=== PATIENT | male | born 1970 | race Caucasian/White ===

== ENCOUNTER 2020-07-12 19:10 | Emergency (ER) | payer MEDICAID, SELFPAY ==
--- NOTE | ~2020-07-12 | XR_ITS ---
Examination: XR lumbar spine 2-3V, XR sacrum coccyx min 2V Indication: lower back pain Comparison: 10/22/2017 Technique: 3 views of the lumbar sacral spine with 3 additional views the sacrum/coccyx. Findings: Bones are normal anatomic alignment. I do not appreciate any acute fracture or spondylolisthesis. Vertebral body heights and disc heights are preserved. Minimal degenerative changes the posterior elements the lower lumbar spine. Bowel gas pattern unremarkable. I do not appreciate any acute fracture or spondylolisthesis of the sacrum or coccyx either. XR/XR sacrum coccyx min 2V Impression: No acute bony abnormality.
--- NOTE | ~2020-07-12 | XR_ITS ---
Examination: XR lumbar spine 2-3V, XR sacrum coccyx min 2V Indication: lower back pain Comparison: 10/22/2017 Technique: 3 views of the lumbar sacral spine with 3 additional views the sacrum/coccyx. Findings: Bones are normal anatomic alignment. I do not appreciate any acute fracture or spondylolisthesis. Vertebral body heights and disc heights are preserved. Minimal degenerative changes the posterior elements the lower lumbar spine. Bowel gas pattern unremarkable. I do not appreciate any acute fracture or spondylolisthesis of the sacrum or coccyx either. XR/XR lumbar spine 2-3V Impression: No acute bony abnormality.
[2020-07-12 20:06] VITALS: BP 153/101; PULSE 91; RESP 17; TEMP 36.7; O2SAT 97; BMI 36.5
[2020-07-12] MEDS: oxyCODONE HCl Immed Release 5 MG TABLET PO (21:42)
[2020-07-12] MEDS: Ketorolac Tromethamine 30 MG/ML VIAL IM (21:43)
--- NOTE | 2020-07-12 23:05 | ED.BACK ---
HPI - Back Pain/Injury General Chief Complaint: Back Pain/Injury Stated Complaint: Back Pain Time Seen by Provider: 07/12/20 22:25 Source: patient Mode of arrival: ambulatory Limitations: no limitations History of Present Illness HPI Narrative: Patient presents to the ED for lower back pain radiating down both legs. Patient states history of chronic back issues does worsen the past 2 days. Patient denies any recent trauma to the back head or abdomen. Patient denies fall to the ground. Patient denies any urinary/bowel incontinence. MD elicited complaint: back pain Related Data Previous Rx's Medication Instructions Recorded oxycodone-acetaminophen [Percocet] 1 tab PO TID PRN #9 tab 07/12/20 Allergies Allergy/AdvReac Type Severity Reaction Status Date / Time No Known Allergies Allergy Verified 07/12/20 20:16 [No Known Allergies*] Review of Systems Review of Systems: Yes all other systems are reviewed and are negative Constitutional: Constitutional: Reports as per HPI and Reports no additional constitutional complaints Eyes: Eyes: Reports as per HPI and Reports no additional eye complaints ENT: Reports system reviewed and no additional complaints, except as documented and Reports as per HPI Cardiovascular: Cardiovascular: Reports as per HPI and Reports no additional cardiovascular complaints Respiratory: Respiratory: Reports as per HPI and Reports no additional respiratory complaints Gastrointestinal: Gastrointestinal: Reports as per HPI and Reports no additional gastrointestinal complaints Genitourinary: Genitourinary: Reports no additional male genitourinary complaints and Reports as per HPI Musculoskeletal: Musculoskeletal: Reports no additional musculoskeletal complaints, Reports as per HPI and Reports back pain Neurologic: Reports system reviewed and no additional complaints, except as documented and Reports as per HPI Psychiatric: Psychiatric: Reports no additional psychiatric complaints and Reports as per HPI [facility] Past Medical History Medical History (Updated 07/12/20 @ 23:22 by MARYBETH Bowen) Back pain Depression Diabetes High cholesterol HTN (hypertension) Social History Social History Advance Directives: No Physical Exam Vital Signs: Vital Signs: Last Vital Signs Temp 98.1 F 07/12/20 20:06 Pulse 91 07/12/20 20:06 Resp 17 07/12/20 20:06 BP 153/101 H 07/12/20 20:06 Pulse Ox 97 07/12/20 20:06 Body Mass Index 36.5 Const: General: cooperative, healthy appearing, comfortable, no acute distress, well developed, alert, awake and Physically active Orientation/consciousness: patient oriented x3 HENMT: Head: Yes normal to inspection, Yes No palpable skull fracture present, Yes normocephalic, Yes atraumatic and No abrasion Eyes: General: appearance normal, both eyes and all related structures Neck: Neck: Yes normal visual inspection, Yes full ROM, Yes no lymphadenopathy, Yes no meningeal signs, Yes trachea midline, Yes supple and No tender Chest: Chest palpation & inspection: normal inspection of the chest and normal palpation of entire chest wall Resp: Effort & Inspection: normal respiratory effort and able to speak in complete sentences Auscultation: clear to auscultation bilaterally Cardio: Jugular venous distension: no JVD Heart sounds: S1 normal heart sound present and S2 normal heart sound present GI: Inspection: Yes normal to inspection and No abdominal wall ecchymosis Palpation (GI): Soft to palpation, not firm, nontender, no guarding and not rigid : General: No CVA tenderness and Yes no CVA tenderness Back/Spine/Pelvis: Other: Rectal exam positive for good anus rectal tone strength on rectal exam. Negative for saddle anesthesia. Patient's has sensation in whole saddle. Patient has sensation in the perineum, scrotum, genital area, groin, and pubis. Back: no CVA tenderness, No CVA tenderness and back tenderness (Lumbar spine) Skin: General skin exam: no rashes or lesions noted and elasticity normal Neuro: General: patient oriented x3, gait normal, no meningeal signs and CN's II-XI intact bilaterally Cranial nerves: Yes CN's II-XII intact bilaterally Extrem: General: Yes normal to inspection and Yes full ROM Psych: Appearance: grossly normal, well kempt and not disheveled Course Course Course Narrative: Patient have lumbar spine x-ray. Reevaluation(s) Reevaluation #1: X-ray shows degenerative arthritis. Physical exam does not indicate cauda compression. Patient will be discharged with narcotic. Patient already has motrin at home. MDM - Back Pain/Injury MDM Narrative Medical decision making narrative: Degenerative disc disease Discharge Plan Discharge Clinical Impression: Degenerative disc disease at L5-S1 level Patient Disposition: Home, Self-Care Instructions: Degenerative Disc Disease (ED) Additional Instructions: Acudir al servicio de urgencias inmediatamente por cualquier incontinencia urinaria / intestinal, dolor de espalda yanick, par?lisis de las extremidades inferiores, entumecimiento / hormigueo, dolor abdominal, dolor en el costado, fiebre, escalofr?os, n?useas, v?mitos o cualquier otro s?ntoma preocupante. Lupillo un seguimiento con el PCP. Prescriptions: New oxycodone-acetaminophen [Percocet] 5-325 mg tablet 1 tab PO TID PRN (Reason: pain) Qty: 9 RF: 0 Referrals: Josh Amin MD [Primary Care Provider] - 2 days (Lumbar radiculopathy. Degenerate disc disease. Recommend MRI if no improvement in pain.) Stand Alone Forms: Work/School Release Interventions: ED Discharge Assessment Last Done: 07/12/20 23:53 Discharge Date/Time: 07/13/20 00:00 Print Language: Bengali
== END 2020-07-13 | disposition home or self-care (01) ==
PROVIDERS: Emergency Provider Internal Medicine; PCP Family Medicine
DX: M47.817 Spondylosis without myelopathy or radiculopathy, lumbosacral region (principal); I10 Essential (primary) hypertension; E11.9 Type 2 diabetes mellitus without complications
CPT/HCPCS: 72100; 72220; 96372; 99284; J1885

== ENCOUNTER 2020-07-22 15:22 | Outpatient (REF) | payer MEDICAID, SELFPAY ==
--- NOTE | ~2020-07-22 | MR_ITS ---
EXAMINATION: MR LUMBAR SPINE WITHOUT CONTRAST CLINICAL INFORMATION: Lower back pain. Bilateral leg weakness, numbness, toe numbness or weakness. COMPARISON: Most recent lumbar spine radiographs dated 07/12/2020 TECHNIQUE: MRI of the lumbar spine was obtained using routine sequences without contrast. FINDINGS: VERTEBRAL BODIES AND PARASPINAL STRUCTURES: Normal vertebral body alignment. The lumbar lordosis is maintained. No acute fracture or subluxation. No loss of vertebral body height. Mild loss of intervertebral disc height with disc desiccation at L2-L5. Tiny multilevel anterior endplate osteophytes. No marrow edema to suggest acute osseous injury. The visualized paraspinal soft tissues are unremarkable. CONUS MEDULLARIS AND CAUDA EQUINA: Normal, terminating at the level of L1. SPINAL LEVELS: L1-L2: No significant disc bulge. Bilateral facet arthropathy and thickening of the ligamentum flavum. No central canal or neural foraminal stenosis. L2-L3: Minimal broad-based disc bulge with a shallow posterior central disc protrusion. Bilateral facet arthropathy. No significant central canal or neural foraminal stenosis. L3-L4: No significant disc bulge. Bilateral facet arthropathy and thickening of the ligamentum flavum. No central canal or neural foraminal stenosis. L4-L5: Shallow broad-based disc bulge with bilateral facet arthropathy and thickening of the ligamentum flavum. No significant central canal stenosis. Mild bilateral neural foraminal stenosis. L5-S1: No significant disc bulge. Bilateral facet arthropathy without significant central canal or neural foraminal stenosis. MR/MR lumbar spine wo con IMPRESSION: 1. Minimal broad-based disc bulge at L2-L3 with a shallow posterior central disc protrusion and bilateral facet arthropathy. No significant central canal or neural foraminal stenosis. 2. L4-L5 shallow broad-based disc bulge with bilateral facet arthropathy and thickening of the ligamentum flavum causing mild bilateral neural foraminal stenosis. 3. Additional multilevel bilateral facet arthropathy without significant central canal or neural foraminal stenosis.
== END 2020-07-22 15:23 | disposition home or self-care (01) ==
LOC: HO.MRI 15:22
PROVIDERS: Visit Provider Nurse Practitioner Family
DX: M54.41 Lumbago with sciatica, right side (principal); M54.42 Lumbago with sciatica, left side
CPT/HCPCS: 72148

== ENCOUNTER 2020-08-02 16:43 | Inpatient (IN) | payer OTHER, SELFPAY ==
--- NOTE | 2020-08-02 | ECG_ITS ---
Test Reason : AMS Blood Pressure : / mmHG Vent. Rate : 097 BPM Atrial Rate : 097 BPM P-R Int : 124 ms QRS Dur : 148 ms QT Int : 408 ms P-R-T Axes : 049 001 004 degrees QTc Int : 518 ms Normal sinus rhythm Right bundle branch block Abnormal ECG No previous ECGs available Referred By: Generic ED Physician Electronically Signed By:KONRAD RAMIREZ MD
--- NOTE | ~2020-08-02 | CT_ITS ---
EXAMINATION: CT HEAD WITHOUT CONTRAST CLINICAL INFORMATION: Altered mental status COMPARISON: None. TECHNIQUE: Contiguous axial imaging was performed from the skull base to vertex without intravenous administration of contrast. Coronal and sagittal reformatted images are performed at the CT scanner. [This CT examination was performed using dose optimization techniques as appropriate, variously including the following: *Automated exposure control *Adjustment of mA and/or kV according to patient size (this includes techniques or standardized protocols for targeted exams where dose is matched to indication/reason for exam; i.e. extremities or head) *Use of iterative reconstruction technique] DLP: 739 mGy-cm. FINDINGS: There is no evidence of acute intracranial hemorrhage or territorial infarction. No abnormal mass-effect or midline shift is seen. Matos to white matter differentiation is well preserved. No extra-axial fluid collections are identified. The ventricles are normal in size. There is no abnormal attenuation within the brain parenchyma. There is no osseous abnormality. The mastoid air cells and visualized portions of the paranasal sinuses are well-aerated. CT/CT head/brain wo con IMPRESSION: No acute intracranial pathology.
--- NOTE | ~2020-08-02 | XR_ITS ---
EXAMINATION: XR KNEE, RIGHT CLINICAL INFORMATION: Knee pain COMPARISON: None TECHNIQUE: Four views of the right knee. FINDINGS: Bones and soft tissues are normal. No fracture or joint effusion. Alignment is anatomic. Joint spaces are well maintained. No abnormal soft tissue calcification. There is small superior patellar enthesophyte. No abnormal joint effusions XR/XR knee RT 3V IMPRESSION: No visible acute fracture dislocation. There is mild spurring superior patella.
--- NOTE | 2020-08-02 17:14 | PC.NURSE ---
awaiting production supervisor services to triage
[2020-08-02 17:34] VITALS: BP 164/113; PULSE 95; RESP 18; TEMP 36.6; O2SAT 100; BMI 17.1
[2020-08-02 18:16] LABS: MANUAL DIFF FLAG NO
[2020-08-02 18:16] LABS: Glucose, Whole Blood 131 mg/dL (60-115)
[2020-08-02 18:27] LABS: Glucose Urine UA NEG (NEG); Leukocyte Esterase Urine NEG (NEG); Nitrite Urine NEG (NEG); Specific Gravity - Urine >= 1.030 (1.005-1.025); Urine Blood NEG (NEG); Urine Ketones NEG (NEG); Urine Protein NEG (NEG-TRACE)
[2020-08-02 18:29] LABS: Appearance Urine CLEAR; Color Urine YELLOW
[2020-08-02 18:38] LABS: Anion Gap 13 (12-20); Basophils Absolute Auto 0.1 X10*3/uL (0.0-0.2); Basophils Percent Auto 0.4 % (0-2); Blood Urea Nitrogen 21 mg/dL (9-16); Calcium 9.7 mg/dL (8.4-10.2); Carbon Dioxide 26 mmol/L (22-29); Chloride 105 mmol/L (96-108); Creatinine Clr Calc Pharmacy 46.4; Eosinophils Percent Auto 0.3 % (0-4); Estimated Glomerular Filt Rate 57; Glucose Random 128 mg/dL (60-115); Hematocrit 44.7 % (42-52); Hemoglobin 14.3 g/dl (14.0-18.0); Imm Gran Abs Auto 0.03 X10*3/uL (0.00-0.03); Imm Gran Pct Auto 0.3 % (0.0-0.4); Lymphocytes Absolute Auto 2.6 X10*3/uL (1.2-4.9); Lymphocytes Percent Auto 22.3 % (20-40); Mean Corpuscular Hemoglobin 27.7 pg (27.0-33.0); Mean Corpuscular Volume 86.6 fL (80-98); Mean Platelet Volume 10.2 fL (9.4-12.4); Monocytes Absolute Auto 0.8 X10*3/uL (0.1-1.2); Monocytes Percent Auto 6.9 % (2-11); Neutrophils Absolute Auto 8.1 X10*3/uL (2.0-8.3); Neutrophils Percent Auto 69.8 % (45-73); Platelet Count 299 X10*3/uL (160-400); Potassium 4.3 mmol/L (3.3-5.1); Red Blood Count 5.16 X10*6/uL (4.60-5.80); Red Cell Distribution Width 14.2 % (11.0-16.0); Sodium 140 mmol/L (135-145); White Blood Count 11.6 X10*3/uL (4.8-10.8)
[2020-08-02 18:57] LABS: Amphetamine Screen Urine Not Detected (Not Detect); Barbiturates, Urine Not Detected (Not Detect); Benzodiazepines Screen Urine Not Detected (Not Detect); Cannabinoid Screen Urine Not Detected (Not Detect); Cocaine Screen Urine Not Detected (Not Detect); Opiate Screen Urine Not Detected (Not Detect); Phencyclidine Screen Urine Not Detected (Not Detect)
[2020-08-02 21:48] VITALS: BP 168/109; PULSE 90; RESP 16; TEMP 36; O2SAT 99
[2020-08-02 22:00] VITALS: BP 193/113; PULSE 86; RESP 16; TEMP 36.6; O2SAT 99
--- NOTE | 2020-08-02 22:25 | ED_ITS ---
HPI - General Adult General Chief complaint: General Medical Stated complaint: ams Time Seen by Provider: 08/02/20 22:03 History of Present Illness HPI narrative: 50-year-old male history of diabetes, hypertension, high cholesterol. Patient presented with having 3-4 day history of having altered mental status. Per family patient thinks the cardiacs are infected. He is ambulatory. He did fell 2 days prior. Complaining of pain to the right knee. He is ambulatory today. He is not on blood thinners. No chest pain. No diaphoresis. No change in sleep pattern. Family feels patient very odd. No history of recreational drug use. Related Data Previous Rx's Medication Instructions Recorded oxycodone-acetaminophen [Percocet] 1 tab PO TID PRN #9 tab 07/12/20 Allergies Allergy/AdvReac Type Severity Reaction Status Date / Time No Known Allergies Allergy Verified 08/02/20 17:33 [No Known Allergies*] Review of Systems Review of Systems: No chest pain or shortness breath no nausea no vomiting Yes all other systems are reviewed and are negative [facility] Past Medical History Attestation statement: The following information was validated with the patient. Medical History Back pain Depression Diabetes High cholesterol HTN (hypertension) Hypoglycemia Social History Social History Advance Directives: No Advance Directives Information Provided: Yes Physical Exam Vital Signs: Vital Signs: Last Vital Signs Temp 98.0 F 08/03/20 06:08 Pulse 82 08/03/20 06:08 Resp 16 08/03/20 06:08 BP 167/106 H 08/03/20 06:08 Pulse Ox 98 08/03/20 06:08 Body Mass Index 17.1 Appearance: Alert. Oriented X3. No acute distress. Eyes: Pupils equal, round and reactive to light. ENT: Pharynx normal. Neck: Normal inspection. Neck supple. No lymph nodes noted. No crepitus CVS: Normal heart rate and rhythm. Pulses normal. Normal S1 and S2 Respiratory: No respiratory distress. Breath sounds normal. No Wheezing. No rales Abdomen: Soft and nontender. No rigidity. No distention. good BS x4 Skin: Skin warm and dry. Normal skin color. Normal skin turgor. Extremities: No lower extremity edema. Neurovascular intact to all extremities. No Lacerations. No Rash Neuro: Oriented X 3. No motor deficit. No sensory deficit. Moving all extermities. No slurred speech Medical Decision Making MDM Narrative Medical decision making narrative: well-appearing no acute distress. We will go ahead and get a CT scan of the head to rule out possibility of a bleed. We will get electrolytes. Will monitor carefully. Patient's labs show evidence of some mild dehydration. Otherwise negative. Will have patient get seen by crisis. CT scan of the head was grossly negative for any acute evidence of bleeding. No fracture. Currently in stable condition. Lab Data Result diagrams: 08/02/20 18:05 08/02/20 18:05 Labs: Lab Results 08/02/20 08/02/20 08/02/20 Range/Units 18:03 18:05 18:05 WBC 11.6 H (4.8-10.8) X10*3/uL RBC 5.16 (4.60-5.80) X10*6/uL Hgb 14.3 (14.0-18.0) g/dl Hct 44.7 (42-52) % MCV 86.6 (80-98) fL MCH 27.7 (27.0-33.0) pg MCHC 32.0 (31.0-36.0) g/dl RDW 14.2 (11.0-16.0) % Plt Count 299 (160-400) X10*3/uL MPV 10.2 (9.4-12.4) fL Immature Gran % (Auto) 0.3 (0.0-0.4) % Neut % (Auto) 69.8 (45-73) % Lymph % (Auto) 22.3 (20-40) % [place] % (Auto) 6.9 (2-11) % Eos % (Auto) 0.3 (0-4) % Baso % (Auto) 0.4 (0-2) % Lymph # (Auto) 2.6 (1.2-4.9) X10*3/uL [place] # (Auto) 0.8 (0.1-1.2) X10*3/uL Eos # (Auto) 0.0 (0.0-0.4) X10*3/uL Baso # (Auto) 0.1 (0.0-0.2) X10*3/uL Abs Immat Gran (auto) 0.03 (0.00-0.03) X10*3/uL Absolute Neuts (auto) 8.1 (2.0-8.3) X10*3/uL Absolute Nucleated RBC 0.000 (0.0-0.012) X10*3/uL Nucleated RBC % (auto) 0.0 (0.0-0.2) /100WBC Sodium 140 (135-145) mmol/L Potassium 4.3 (3.3-5.1) mmol/L Chloride 105 (96-108) mmol/L Carbon Dioxide 26 (22-29) mmol/L Anion Gap 13 (12-20) BUN 21 H (9-16) mg/dL Creatinine 1.32 (0.5-1.4) mg/dL Estim Creat Clear Calc 46.4 Estimated GFR 57 POC Glucose 131 H (60-115) mg/dL Random Glucose 128 H (60-115) mg/dL Calcium 9.7 (8.4-10.2) mg/dL Vitamin B12 (200-900) pg/mL TSH 0.46 (0.32-4.0) uIU/mL Urine Color Urine Appearance Urine pH (5.0-8.0) Ur Specific [place] (1.005-1.025) Urine Protein (NEG-TRACE) MG/DL Urine Glucose (UA) (NEG) MG/DL Urine Ketones (NEG) MG/DL Urine Blood (NEG) Urine Nitrite (NEG) Ur Leukocyte Esterase (NEG) Urine Opiates Screen (Not Detect) Ur Barbiturates Screen (Not Detect) Ur Phencyclidine Scrn (Not Detect) Ur Amphetamines Screen (Not Detect) U Benzodiazepines Scrn (Not Detect) Urine Cocaine Screen (Not Detect) U Marijuana (THC) Screen (Not Detect) Ethyl Alcohol mg/dL 08/02/20 08/02/20 08/02/20 Range/Units 18:05 18:05 18:09 WBC (4.8-10.8) X10*3/uL RBC (4.60-5.80) X10*6/uL Hgb (14.0-18.0) g/dl Hct (42-52) % MCV (80-98) fL MCH (27.0-33.0) pg MCHC (31.0-36.0) g/dl RDW (11.0-16.0) % Plt Count (160-400) X10*3/uL MPV (9.4-12.4) fL Immature Gran % (Auto) (0.0-0.4) % Neut % (Auto) (45-73) % Lymph % (Auto) (20-40) % [place] % (Auto) (2-11) % Eos % (Auto) (0-4) % Baso % (Auto) (0-2) % Lymph # (Auto) (1.2-4.9) X10*3/uL [place] # (Auto) (0.1-1.2) X10*3/uL Eos # (Auto) (0.0-0.4) X10*3/uL Baso # (Auto) (0.0-0.2) X10*3/uL Abs Immat Gran (auto) (0.00-0.03) X10*3/uL Absolute Neuts (auto) (2.0-8.3) X10*3/uL Absolute Nucleated RBC (0.0-0.012) X10*3/uL Nucleated RBC % (auto) (0.0-0.2) /100WBC Sodium (135-145) mmol/L Potassium (3.3-5.1) mmol/L Chloride (96-108) mmol/L Carbon Dioxide (22-29) mmol/L Anion Gap (12-20) BUN (9-16) mg/dL Creatinine (0.5-1.4) mg/dL Estim Creat Clear Calc Estimated GFR POC Glucose (60-115) mg/dL Random Glucose (60-115) mg/dL Calcium (8.4-10.2) mg/dL Vitamin B12 343 (200-900) pg/mL TSH (0.32-4.0) uIU/mL Urine Color YELLOW Urine Appearance CLEAR Urine pH 6.0 (5.0-8.0) Ur Specific [place] >= 1.030 H (1.005-1.025) Urine Protein NEG (NEG-TRACE) MG/DL Urine Glucose (UA) NEG (NEG) MG/DL Urine Ketones NEG (NEG) MG/DL Urine Blood NEG (NEG) Urine Nitrite NEG (NEG) Ur Leukocyte Esterase NEG (NEG) Urine Opiates Screen (Not Detect) Ur Barbiturates Screen (Not Detect) Ur Phencyclidine Scrn (Not Detect) Ur Amphetamines Screen (Not Detect) U Benzodiazepines Scrn (Not Detect) Urine Cocaine Screen (Not Detect) U Marijuana (THC) Screen (Not Detect) Ethyl Alcohol < 10 mg/dL 08/02/20 Range/Units 18:30 WBC (4.8-10.8) X10*3/uL RBC (4.60-5.80) X10*6/uL Hgb (14.0-18.0) g/dl Hct (42-52) % MCV (80-98) fL MCH (27.0-33.0) pg MCHC (31.0-36.0) g/dl RDW (11.0-16.0) % Plt Count (160-400) X10*3/uL MPV (9.4-12.4) fL Immature Gran % (Auto) (0.0-0.4) % Neut % (Auto) (45-73) % Lymph % (Auto) (20-40) % [place] % (Auto) (2-11) % Eos % (Auto) (0-4) % Baso % (Auto) (0-2) % Lymph # (Auto) (1.2-4.9) X10*3/uL [place] # (Auto) (0.1-1.2) X10*3/uL Eos # (Auto) (0.0-0.4) X10*3/uL Baso # (Auto) (0.0-0.2) X10*3/uL Abs Immat Gran (auto) (0.00-0.03) X10*3/uL Absolute Neuts (auto) (2.0-8.3) X10*3/uL Absolute Nucleated RBC (0.0-0.012) X10*3/uL Nucleated RBC % (auto) (0.0-0.2) /100WBC Sodium (135-145) mmol/L Potassium (3.3-5.1) mmol/L Chloride (96-108) mmol/L Carbon Dioxide (22-29) mmol/L Anion Gap (12-20) BUN (9-16) mg/dL Creatinine (0.5-1.4) mg/dL Estim Creat Clear Calc Estimated GFR POC Glucose (60-115) mg/dL Random Glucose (60-115) mg/dL Calcium (8.4-10.2) mg/dL Vitamin B12 (200-900) pg/mL TSH (0.32-4.0) uIU/mL Urine Color Urine Appearance Urine pH (5.0-8.0) Ur Specific [place] (1.005-1.025) Urine Protein (NEG-TRACE) MG/DL Urine Glucose (UA) (NEG) MG/DL Urine Ketones (NEG) MG/DL Urine Blood (NEG) Urine Nitrite (NEG) Ur Leukocyte Esterase (NEG) Urine Opiates Screen Not Detected (Not Detect) Ur Barbiturates Screen Not Detected (Not Detect) Ur Phencyclidine Scrn Not Detected (Not Detect) Ur Amphetamines Screen Not Detected (Not Detect) U Benzodiazepines Scrn Not Detected (Not Detect) Urine Cocaine Screen Not Detected (Not Detect) U Marijuana (THC) Screen Not Detected (Not Detect) Ethyl Alcohol mg/dL Discharge Plan Discharge Prescriptions: No Action oxycodone-acetaminophen [Percocet] 5-325 mg tablet 1 tab PO TID PRN (Reason: pain) Qty: 9 RF: 0
[2020-08-02 22:31] LABS: Ethanol < 10 mg/dL
--- NOTE | 2020-08-02 22:31 | PC.NURSE ---
RN AWARE OF PATIENT HIGH BLOOD PRESSURE .
[2020-08-02 22:45] LABS: Thyroid Stimulating Hormone 0.46 uIU/mL (0.32-4.0)
[2020-08-02 22:56] LABS: Vitamin B12 343 pg/mL (200-900)
--- NOTE | 2020-08-03 01:29 | MHC.CARE ---
CARE team consult requested for 50 year old Lao speaking male who was brought to the ED for evaluation of altered mental status, with new onset of paranoia, delusions, speaking nonsensically, and wandering away from the home. Pt was medically cleared of there being any organic causes for the behavioral change. This instructional writer met with pt and his daughter in ED6H with the assistance of a medical stenographer. Pt cried intermittently during the interaction and would make eye contact with this instructional writer, but was otherwise not engaged. Pt spoke at one point, however it was brief and described as not making sense. Pt's daughter reported that he has been confused, paranoid about neighbors, only trusting his daughters, and has been wandering out of the home. There is no reported history of mental illness and no active substance use. Recommendation was made for crisis evaluation. Pt will be referred to N due to pt having Medicaid insurance. If N is unable to assess pt, CARE team will assume responsibility of evaluation in the morning.
--- NOTE | 2020-08-03 01:55 | PC.NURSE ---
Spoke with Milvia from [facility]. paperwork was received
--- NOTE | 2020-08-03 02:30 | PC.NURSE ---
pt moved to ED 8
--- NOTE | 2020-08-03 03:18 | PC.NURSE ---
called [facility] to get ETA for consult, [facility] said there was nobody available until the morning. daughter (Jackie Altamirano) at bedside informed and told that she can go home and return in the morning as she had asked earlier in the night. Jackie provided her phone number ([phone]) to call her if needed or with any updates. Jackie also gave us her sisters number (pts other daughter) Marla Altamirano ([phone]) to call in case Jackie cant be reached.
[2020-08-03 06:08] VITALS: BP 167/106; PULSE 82; RESP 16; TEMP 36.7; O2SAT 98
--- NOTE | 2020-08-03 06:11 | PC.NURSE ---
BP 167/106 aware no new orders at this time
[2020-08-03 10:00] VITALS: BP 139/97; PULSE 88; RESP 17; TEMP 36.8; O2SAT 97
[2020-08-03 12:10] VITALS: BP 126/92; PULSE 81; RESP 17; TEMP 36.7; O2SAT 96
[2020-08-03 12:40] LABS: MANUAL DIFF FLAG NO
[2020-08-03 12:43] LABS: Basophils Percent Auto 0.4 % (0-2); Eosinophils Absolute Auto 0.1 X10*3/uL (0.0-0.4); Hematocrit 45.8 % (42-52); Hemoglobin 14.8 g/dl (14.0-18.0); Imm Gran Abs Auto 0.02 X10*3/uL (0.00-0.03); Imm Gran Pct Auto 0.2 % (0.0-0.4); Lymphocytes Absolute Auto 2.3 X10*3/uL (1.2-4.9); Lymphocytes Percent Auto 25.3 % (20-40); Mean Corpuscular HGB Conc 32.3 g/dl (31.0-36.0); Mean Corpuscular Hemoglobin 27.9 pg (27.0-33.0); Mean Corpuscular Volume 86.3 fL (80-98); Monocytes Absolute Auto 0.6 X10*3/uL (0.1-1.2); Monocytes Percent Auto 6.3 % (2-11); Neutrophils Absolute Auto 6.2 X10*3/uL (2.0-8.3); Neutrophils Percent Auto 66.8 % (45-73); Platelet Count 289 X10*3/uL (160-400); Red Blood Count 5.31 X10*6/uL (4.60-5.80); White Blood Count 9.2 X10*3/uL (4.8-10.8)
[2020-08-03 13:01] LABS: Lactic Acid 0.9 mmol/L (0.5-2.0)
[2020-08-03 13:10] LABS: Alanine Aminotransferase 20 U/L (0-40); Albumin Level 4.4 g/dL (3.5-5.0); Alkaline Phosphatase 63 U/L (39-117); Anion Gap 12 (12-20); Aspartate Amino Transferase 18 U/L (5-37); Bilirubin Direct 0.4 mg/dL (0.0-0.5); Bilirubin Total 1.4 mg/dL (0.0-1.0); Blood Urea Nitrogen 17 mg/dL (9-16); Calcium 9.2 mg/dL (8.4-10.2); Carbon Dioxide 27 mmol/L (22-29); Chloride 103 mmol/L (96-108); Creatinine Clr Calc Pharmacy 62.5; Estimated Glomerular Filt Rate > 60; Glucose Random 103 mg/dL (60-115); Potassium 4.2 mmol/L (3.3-5.1); Sodium 138 mmol/L (135-145)
--- NOTE | 2020-08-03 13:15 | MHC.CARE ---
Met with patient's Bulgarian speaking daughter privately via medical records auditor. She reported that this is the third day her father has been behaving strangely; she stated that he is anxious and afraid and came to the hospital willingly. Yesterday patient was uncharacteristically gone all day and out of contact with family. He went to his daughter's house at 3am, said he was walking all day but confused about where. Would not take food or drink from her, was worried that it was not safe; thought people were following him, controlling his phone, refused to look at the television. Call to patient's son, Masoud ([phone]) in an attempt to gather more background information. He stated that his father is normally happy, busy working (cooks and sells food), is never altered, and has no history of mental health issues, no known family history, no substance use, no weapons in the home. Have not met 1:1 with patient yet, so far he has not been able to engage in meaningful interview. Following medical clearance CARE Team further assess and consult with psychiatry to determine next steps.
[2020-08-03 13:24] LABS: Glucose, Whole Blood 106 mg/dL (60-115)
[2020-08-03 13:56] LABS: CSF Appearance Clear, Colorless; CSF Tube # 1
[2020-08-03 14:08] LABS: Total Protein CSF 60.8 mg/dL (15-45)
[2020-08-03 14:12] LABS: Appearance CSF CLEAR
[2020-08-03 14:13] LABS: CSF Monos 30 %; CSF Tube # 4; Color CSF COLORLESS; Lymphocytes CSF 70 %; Red Blood Cell CSF 0 MM*3; White Blood Cell CSF 4 MM*3
[2020-08-03 14:32] VITALS: BP 125/85; PULSE 88; RESP 17; TEMP 36.6; O2SAT 96
[2020-08-03 15:00] LABS: Glucose CSF 72 mg/dL
--- NOTE | 2020-08-03 16:49 | MHC.CARE ---
CARE Team has assessed patient and spoken to several family members, he will require inpatient psychiatric treatment, written evaluation to follow. Providers updated.
--- NOTE | 2020-08-03 16:54 | PHA.MEDREC ---
Pharmacy Consult ? Medication Reconciliation Pharmacy has completed the medication reconciliation.
[2020-08-03 20:38] VITALS: BP 119/87; PULSE 78; RESP 16; TEMP 37.1; O2SAT 96
[2020-08-04 01:52] VITALS: BMI 36.3
[2020-08-04 01:54] VITALS: BP 129/79; PULSE 71; RESP 18; TEMP 36.2; O2SAT 99
--- NOTE | 2020-08-04 03:51 | PC.ADMIT ---
pt is 50 yo male presenting with psychotic d/o. pt is Chadian speaking only. Interview was done with an aerial photograph interpreter. Pt is calm and cooperative, he is oriented to person, time and place, paranoid, makes good eye contact but not intense. Pt tearful at times. Pt understands his paranoia, delusions and confusion are a profound change and he wants to go back to being the man he once was. pt completed interview, showered and went to bed.
[2020-08-04 06:00] VITALS: BP 115/78; PULSE 59; RESP 18; TEMP 36.6; O2SAT 98
[2020-08-04 08:30] VITALS: BP 117/79; PULSE 70
[2020-08-04] MEDS: allopurinoL 100 MG TABLET PO (08:30)
[2020-08-04] MEDS: Atorvastatin Calcium 40 MG TABLET PO (08:30)
[2020-08-04] MEDS: dilTIAZem HCL CD 120 MG CAP.ER.DEG PO (08:30)
[2020-08-04] MEDS: Losartan Potassium 50 MG TABLET 100 MG PO (08:30)
[2020-08-04 08:46] LABS: Lyme Abs Screen <0.90 index
--- NOTE | 2020-08-04 09:59 | P.HPPS_ITS ---
HPI Chief Complaint: Psychosis Sources of Information: patient interviewed, chart reviewed and crisis/core team assessment reviewed HPI Subjective Notes: Conditional Voluntary Narrative: Mr. Altamirano is a 50 year-old male with hx of MDD and anxiety, apparently no prior hx of psychosis who was [place] [facility] [place] his partner brought him because he has been increasingly more disorganized, paranoid thinking people were after him, that was seeing other men, hearing voices and increasingly more confused. In the ED, his utox was negative. He had extensive medical workup since this is first episode of psychosis including LP which included negative meningitis/encephalitis panel, pending results for VDRL, Herpes. CSF WBC, Lymphocites, all wnl, except for elevated CSF protein (60.8). Head CT unremarkable for acute or chronic findings. Upon further investigation and interview with both pt and his , both report that patient has been using cocaine 4-5 weekly up until 2 weeks ago when disorganization and psychosis started. On the unit, Mr. Altamirano presents as much more organized and much less psychotic. Pt reports two weeks ago he became very confused, paranoid, thinking was talking with several men right in front of him, suspicious about everyone to the point that he decided to leave home and walk aimlessly without shoes. He reports he is glad he got help. He reports sleeping and eating well. He reports feeling very worried and scared about recent episode of psychosis. He adamantly denies suicidal or homicidal ideation. He reports last day he heard voices was day prior to coming to unit. Past Psychiatric History: Inpatient: none prior OP: [facility]- Dr. Ella Muñoz, Therapist [facility] Past Trial: clonazepam, ambien, lexapro Medical Evaluation Reviewed: Yes [facility] Medical History (Updated 08/05/20 @ 10:19 by Leslie Kumar) Back pain Depression Diabetes High cholesterol HTN (hypertension) Hypoglycemia Family History: none Social History: Pt . He has 3 adult children who are close to him. He is currently not working due disability due to anxiety/depression. He has partner of 4 years. 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 Substance History: Cocaine: pt reports using on and off since he was a teen. He reports using about $40 4-5 weekly until 2-3 weeks ago. Alcohol: reports drinking about 6 beers twice a month. Heroin: denies Cocaine: denies Trauma History: denies Diagnostics Vital Signs (24Hr): Vital Signs - 24 hr 08/04/20 20:15 08/05/20 06:00 08/05/20 08:05 Temperature 98.2 F 96.9 F Pulse Rate 76 76 75 Respiratory Rate 20 Blood Pressure 120/72 138/69 120/82 Pulse Oximetry 100 Body Mass Index 36.3 Labs Results: 08/03/20 12:26 08/05/20 08:17 Labs: Laboratory Results - last 48 hr 08/03/20 08/03/20 08/03/20 12:25 12:26 12:27 WBC 9.2 RBC 5.31 Hgb 14.8 Hct 45.8 MCV 86.3 MCH 27.9 MCHC 32.3 RDW 14.0 Plt Count 289 MPV 10.0 Immature Gran % (Auto) 0.2 Neut % (Auto) 66.8 Lymph % (Auto) 25.3 [place] % (Auto) 6.3 Eos % (Auto) 1.0 Baso % (Auto) 0.4 Lymph # (Auto) 2.3 [place] # (Auto) 0.6 Eos # (Auto) 0.1 Baso # (Auto) 0.0 Abs Immat Gran (auto) 0.02 Absolute Neuts (auto) 6.2 Absolute Nucleated RBC 0.000 Nucleated RBC % (auto) 0.0 Sodium 138 Potassium 4.2 Chloride 103 Carbon Dioxide 27 Anion Gap 12 BUN 17 H Creatinine 0.98 Estim Creat Clear Calc 62.5 Estimated GFR > 60 POC Glucose Random Glucose 103 Fasting Glucose Estimat Average Glucose Hemoglobin A1c % Lactic Acid 0.9 Calcium 9.2 Magnesium Total Bilirubin 1.4 H Direct Bilirubin 0.4 AST 18 ALT 20 Alkaline Phosphatase 63 Total Protein 7.0 Albumin 4.4 Vitamin B12 Folate TSH Free T4 Fld Lyme DNA (PCR) CSF Tube Number CSF Volume CSF Appearance CSF Color CSF WBC CSF RBC CSF Lymphocytes CSF Monocytes % CSF Appearance (b) CSF Glucose CSF Total Protein CSF Lyme IgG (Immblot) CSF Lyme IgG Bands Det CSF Lyme IgM (Immblot) CSF Lyme IgM Bands Det CSF Cryptococcus Ag CSF Mening/Enceph PCR Lyme Screen IgG & IgM Lyme Progressive Test Lyme Disease DNA (PCR) 08/03/20 08/03/20 08/03/20 12:27 12:49 13:19 WBC RBC Hgb Hct MCV MCH MCHC RDW Plt Count MPV Immature Gran % (Auto) Neut % (Auto) Lymph % (Auto) [place] % (Auto) Eos % (Auto) Baso % (Auto) Lymph # (Auto) [place] # (Auto) Eos # (Auto) Baso # (Auto) Abs Immat Gran (auto) Absolute Neuts (auto) Absolute Nucleated RBC Nucleated RBC % (auto) Sodium Potassium Chloride Carbon Dioxide Anion Gap BUN Creatinine Estim Creat Clear Calc Estimated GFR POC Glucose 106 Random Glucose Fasting Glucose Estimat Average Glucose Hemoglobin A1c % Lactic Acid Calcium Magnesium Total Bilirubin Direct Bilirubin AST ALT Alkaline Phosphatase Total Protein Albumin Vitamin B12 Folate TSH Free T4 Fld Lyme DNA (PCR) CSF Tube Number 1 CSF Volume CSF Appearance CSF Color CSF WBC CSF RBC CSF Lymphocytes CSF Monocytes % CSF Appearance (b) Clear, Colorless CSF Glucose 72 CSF Total Protein 60.8 H CSF Lyme IgG (Immblot) CSF Lyme IgG Bands Det CSF Lyme IgM (Immblot) CSF Lyme IgM Bands Det CSF Cryptococcus Ag CSF Mening/Enceph PCR Lyme Screen IgG & IgM <0.90 Lyme Progressive Test TNP Lyme Disease DNA (PCR) 08/03/20 08/03/20 08/03/20 13:19 13:19 13:19 WBC RBC Hgb Hct MCV MCH MCHC RDW Plt Count MPV Immature Gran % (Auto) Neut % (Auto) Lymph % (Auto) [place] % (Auto) Eos % (Auto) Baso % (Auto) Lymph # (Auto) [place] # (Auto) Eos # (Auto) Baso # (Auto) Abs Immat Gran (auto) Absolute Neuts (auto) Absolute Nucleated RBC Nucleated RBC % (auto) Sodium Potassium Chloride Carbon Dioxide Anion Gap BUN Creatinine Estim Creat Clear Calc Estimated GFR POC Glucose Random Glucose Fasting Glucose Estimat Average Glucose Hemoglobin A1c % Lactic Acid Calcium Magnesium Total Bilirubin Direct Bilirubin AST ALT Alkaline Phosphatase Total Protein Albumin Vitamin B12 Folate TSH Free T4 Fld Lyme DNA (PCR) CSF Tube Number 4 CSF Volume 2.0 CSF Appearance CLEAR CSF Color COLORLESS CSF WBC 4 CSF RBC 0 CSF Lymphocytes 70 CSF Monocytes % 30 CSF Appearance (b) CSF Glucose CSF Total Protein CSF Lyme IgG (Immblot) CSF Lyme IgG Bands Det CSF Lyme IgM (Immblot) CSF Lyme IgM Bands Det CSF Cryptococcus Ag SEE NOTE CSF Mening/Enceph PCR SEE NOTE Lyme Screen IgG & IgM Lyme Progressive Test Lyme Disease DNA (PCR) 08/03/20 08/03/20 08/05/20 13:19 13:19 08:17 WBC RBC Hgb Hct MCV MCH MCHC RDW Plt Count MPV Immature Gran % (Auto) Neut % (Auto) Lymph % (Auto) [place] % (Auto) Eos % (Auto) Baso % (Auto) Lymph # (Auto) [place] # (Auto) Eos # (Auto) Baso # (Auto) Abs Immat Gran (auto) Absolute Neuts (auto) Absolute Nucleated RBC Nucleated RBC % (auto) Sodium 140 Potassium 4.6 Chloride 105 Carbon Dioxide 28 Anion Gap 12 BUN 21 H Creatinine 1.16 Estim Creat Clear Calc 90.0 Estimated GFR > 60 POC Glucose Random Glucose Fasting Glucose 99 Estimat Average Glucose Hemoglobin A1c % Lactic Acid Calcium 9.3 Magnesium 2.4 Total Bilirubin 1.0 Direct Bilirubin 0.3 AST 17 ALT 22 Alkaline Phosphatase 68 Total Protein 7.1 Albumin 4.4 Vitamin B12 Folate TSH 0.79 Free T4 0.95 Fld Lyme DNA (PCR) CSF Tube Number CSF Volume CSF Appearance CSF Color CSF WBC CSF RBC CSF Lymphocytes CSF Monocytes % CSF Appearance (b) CSF Glucose CSF Total Protein CSF Lyme IgG (Immblot) Cancelled CSF Lyme IgG Bands Det Cancelled CSF Lyme IgM (Immblot) Cancelled CSF Lyme IgM Bands Det Cancelled CSF Cryptococcus Ag CSF Mening/Enceph PCR Lyme Screen IgG & IgM Lyme Progressive Test Lyme Disease DNA (PCR) NOT DETECTED 08/05/20 08/05/20 08:17 08:17 WBC RBC Hgb Hct MCV MCH MCHC RDW Plt Count MPV Immature Gran % (Auto) Neut % (Auto) Lymph % (Auto) [place] % (Auto) Eos % (Auto) Baso % (Auto) Lymph # (Auto) [place] # (Auto) Eos # (Auto) Baso # (Auto) Abs Immat Gran (auto) Absolute Neuts (auto) Absolute Nucleated RBC Nucleated RBC % (auto) Sodium Potassium Chloride Carbon Dioxide Anion Gap BUN Creatinine Estim Creat Clear Calc Estimated GFR POC Glucose Random Glucose Fasting Glucose Estimat Average Glucose 111 Hemoglobin A1c % 5.5 Lactic Acid Calcium Magnesium Total Bilirubin Direct Bilirubin AST ALT Alkaline Phosphatase Total Protein Albumin Vitamin B12 318 Folate 12.3 TSH Free T4 Fld Lyme DNA (PCR) CSF Tube Number CSF Volume CSF Appearance CSF Color CSF WBC CSF RBC CSF Lymphocytes CSF Monocytes % CSF Appearance (b) CSF Glucose CSF Total Protein CSF Lyme IgG (Immblot) CSF Lyme IgG Bands Det CSF Lyme IgM (Immblot) CSF Lyme IgM Bands Det CSF Cryptococcus Ag CSF Mening/Enceph PCR Lyme Screen IgG & IgM Lyme Progressive Test Lyme Disease DNA (PCR) Imaging Radiology Impressions: ITS Impressions Head CT 08/02/20 22:03 IMPRESSION: No acute intracranial pathology. Knee X-Ray 08/02/20 22:27 IMPRESSION: No visible acute fracture dislocation. There is mild spurring superior patella. Meds/Allergies Meds Home Medications Acetaminophen (Acetaminophen 325 Mg Tablet) 650 mg PO Q6H PRN PRN Reason: Headache/Pain Mild Scale (1-3) Last Admin: 08/04/20 12:01 Dose: 650 mg Documented by: Al Hydroxide/Mg Hydroxide (Magnesium Hydrox/Alum Hydrox 30 Ml Oral.Susp) 30 ml PO Q6H PRN PRN Reason: Heartburn/Nausea Albuterol Sulfate (Albuterol Sulfate 90 Mcg 8 Gm Inhaler) 2 puff INHALE Q4H PRN PRN Reason: wheezing Allopurinol (Allopurinol 100 Mg Tablet) 100 mg PO DAILY [facility] Last Admin: 08/05/20 08:05 Dose: 100 mg Documented by: Atorvastatin Calcium (Atorvastatin Calcium 40 Mg Tablet) 40 mg PO DAILY [facility] Last Admin: 08/05/20 08:05 Dose: 40 mg Documented by: Clonazepam (Clonazepam 0.5 Mg Tablet) 0.5 mg PO DAILY PRN PRN Reason: anxiety attack Diltiazem HCl (Diltiazem Hcl Cd 120 Mg Cap.Er.Deg) 120 mg PO DAILY [facility]; Protocol Last Admin: 08/05/20 08:05 Dose: 120 mg Documented by: Escitalopram Oxalate (Escitalopram Oxalate 10 Mg Tablet) 10 mg PO BEDTIME [place] Last Admin: 08/04/20 22:22 Dose: 10 mg Documented by: Famotidine (Famotidine 20 Mg Tablet) 40 mg PO BID PRN PRN Reason: heartburn Hydroxyzine HCl (Hydroxyzine Hcl 25 Mg Tablet) 25 mg PO BEDTIME PRN PRN Reason: Anxiety Hydroxyzine HCl (Hydroxyzine Hcl 25 Mg Tablet) 25 - 50 mg PO TID PRN PRN Reason: anxiety Losartan Potassium (Losartan Potassium 50 Mg Tablet) 100 mg PO DAILY [facility]; Protocol Last Admin: 08/05/20 08:05 Dose: 100 mg Documented by: Magnesium Hydroxide (Milk Of Magnesia 30 Ml Oral.Susp) 30 ml PO DAILY PRN PRN Reason: Constipation Pharmacy Consult (Consult Rx Perform Med Rec) 1 each MISCELLANE ONCE PRN PRN Reason: Consult order Pharmacy Consult (Consult Rx Perform Med Rec) 1 each MISCELLANE ONCE PRN PRN Reason: Consult order Trazodone HCl (Trazodone Hcl 50 Mg Tablet) 50 mg PO BEDTIME PRN PRN Reason: Insomnia Last Admin: 08/04/20 22:21 Dose: 50 mg Documented by: Allergies Allergies Allergy/AdvReac Type Severity Reaction Status Date / Time No Known Allergies Allergy Verified 08/02/20 17:33 [No Known Allergies*] Mental Status Exam Mental Status Exam Narrative: Appearance: casually groomed, fair hygiene, in NAD Behavior: calm, cooperative Psychomotor: no agitation or retardation noted Speech: clear, normal rate/rhythm/volume, spontaneous TP: tangential at times but no loose associations TC: some residual paranoia towards , but much more clear and coherent, future oriented Mood: much better Affect:brighter, non labile SI:none HI:none AH/VH:less AH Delusions:residual paranoia towards , but minimal Insight/judgment:fair x 2. does minimize substance use Memory/cog: alert, oriented x 3. grossly intact to conversational testing. Assessment & Plan Assessment & Plan (1) Substance-induced psychotic disorder with delusions: Status: Acute Code(s): F19.950 - Other psychoactive substance use, unspecified with psychoactive substance-induced psychotic disorder with delusions Assessment and Plan: Mr. Altamirano is a 50 year-old male with hx of MDD, no prior hx of psychosis who was [place] [facility] [place] due to 2 week hx of psychosis and paranoia and disorganized behavior. Extensive medical work up completed in ED, including head CT, LP (meningitis/encephalitis) no significant finding to account for new onset psychosis. In the ED, his utox was negative but upon interview with pt and his , both admit using cocaine regularly until two months ago. On the unit, pt has significantly clear in terms of psychosis and presents as much more organized. At this point suspect psychosis is cocaine induced. Pt does minimize substance use and its effect on his mood and ability to function. We discussed risks, benefits and alternative treatment options. PLAN: 1. Start risperidone 1mg po BID 2. Obtain collateral information 3. 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
[2020-08-04] MEDS: Acetaminophen 325 MG TABLET 650 MG PO (12:01)
[2020-08-04 16:56] LABS: Lyme (B. burgdorferi) PCR NOT DETECTED (NOT DETECTED)
[2020-08-04 20:15] VITALS: BP 120/72; PULSE 76; TEMP 36.8
[2020-08-04] MEDS: traZODone HCL 50 MG TABLET PO (22:21)
[2020-08-04] MEDS: Escitalopram Oxalate 10 MG TABLET PO (22:22)
[2020-08-05 06:00] VITALS: BP 138/69; PULSE 76; RESP 20; TEMP 36.1; O2SAT 100
[2020-08-05 07:00] VITALS: BMI 36.3
[2020-08-05 08:05] VITALS: BP 120/82; PULSE 75
[2020-08-05] MEDS: allopurinoL 100 MG TABLET PO (08:05)
[2020-08-05] MEDS: Losartan Potassium 50 MG TABLET 100 MG PO (08:05)
[2020-08-05] MEDS: Atorvastatin Calcium 40 MG TABLET PO (08:05)
[2020-08-05] MEDS: dilTIAZem HCL CD 120 MG CAP.ER.DEG PO (08:05)
[2020-08-05 08:54] LABS: Alanine Aminotransferase 22 U/L (0-40); Albumin Level 4.4 g/dL (3.5-5.0); Alkaline Phosphatase 68 U/L (39-117); Anion Gap 12 (12-20); Aspartate Amino Transferase 17 U/L (5-37); Bilirubin Direct 0.3 mg/dL (0.0-0.5); Blood Urea Nitrogen 21 mg/dL (9-16); Calcium 9.3 mg/dL (8.4-10.2); Carbon Dioxide 28 mmol/L (22-29); Chloride 105 mmol/L (96-108); Estimated Glomerular Filt Rate > 60; Glucose Fasting 99 mg/dL (60-99); Magnesium 2.4 mg/dL (1.6-2.6); Potassium 4.6 mmol/L (3.3-5.1); Sodium 140 mmol/L (135-145); Total Protein 7.1 g/dL (6.5-8.0)
[2020-08-05 09:06] LABS: Estimated Average Glucose 111 mg/dL; Hemoglobin A1c % 5.5 %
[2020-08-05 09:09] LABS: Free T4 (Free Thyroxine) 0.95 ng/dL (0.71-1.85); Thyroid Stimulating Hormone 0.79 uIU/mL (0.32-4.0)
[2020-08-05 09:44] LABS: Folate 12.3 ng/mL (> or = 4.0); Vitamin B12 318 pg/mL (200-900)
[2020-08-05] MEDS: Famotidine 20 MG TABLET 40 MG PO (14:21)
--- NOTE | 2020-08-05 15:49 | HO.PSYCHPN ---
Subjective Subjective Date of Service: 08/05/20 Reason For Visit: Psychosis Subjective Notes: Conditional Voluntary Interim History: Pt continues to present with paranoia towards GF thinking that multiple people were going to her apartment and continue to do so. Some remarks related to him being intercepted. Pt reports sleeping and eating well. he denies SI/HI. he reports voices have decrease. Collateral from daughter who visited pt yesterday- thinks pt still paranoid towards GF, not fully back to baseline. No behavioral concerns. Medication Compliance: Yes Side effects from medications: No Review of Systems Review of Systems No chest pain or shortness breath no nausea no vomiting Yes all other systems are reviewed and are negative Cardiovascular: Denies chest pain, Denies rapid heart rate, Denies lightheadedness and Denies dyspnea Respiratory: Denies cough and Denies dyspnea Gastrointestinal: Denies constipation and Denies diarrhea Mental Status Exam Mental Status Exam Narrative: Appearance: casually groomed, fair hygiene, in NAD Behavior: calm, cooperative Psychomotor: no agitation or retardation noted Speech: clear, normal rate/rhythm/volume, spontaneous TP: tangential at times but no loose associations TC: some residual paranoia towards , but much more clear and coherent, future oriented Mood: much better Affect:brighter, non labile SI:none HI:none AH/VH:less AH Delusions:residual paranoia towards , but minimal Insight/judgment:fair x 2. does minimize substance use Memory/cog: alert, oriented x 3. grossly intact to conversational testing. Diagnostics Vital Signs (24Hr): Vital Signs - 24 hr 08/04/20 20:15 08/05/20 06:00 08/05/20 08:05 Temperature 98.2 F 96.9 F Pulse Rate 76 76 75 Respiratory Rate 20 Blood Pressure 120/72 138/69 120/82 Pulse Oximetry 100 Body Mass Index 36.3 Labs Results: 08/03/20 12:26 08/05/20 08:17 Labs: Laboratory Results - last 48 hr 08/03/20 08/03/20 08/03/20 12:27 13:19 13:19 Sodium Potassium Chloride Carbon Dioxide Anion Gap BUN Creatinine Estim Creat Clear Calc Estimated GFR Fasting Glucose Estimat Average Glucose Hemoglobin A1c % Calcium Magnesium Total Bilirubin Direct Bilirubin AST ALT Alkaline Phosphatase Total Protein Albumin Vitamin B12 Folate TSH Free T4 Fld Lyme DNA (PCR) CSF Cryptococcus Ag SEE NOTE CSF Mening/Enceph PCR SEE NOTE Lyme Screen IgG & IgM <0.90 Lyme Progressive Test TNP Lyme Disease DNA (PCR) 08/03/20 08/05/20 08/05/20 13:19 08:17 08:17 Sodium 140 Potassium 4.6 Chloride 105 Carbon Dioxide 28 Anion Gap 12 BUN 21 H Creatinine 1.16 Estim Creat Clear Calc 90.0 Estimated GFR > 60 Fasting Glucose 99 Estimat Average Glucose 111 Hemoglobin A1c % 5.5 Calcium 9.3 Magnesium 2.4 Total Bilirubin 1.0 Direct Bilirubin 0.3 AST 17 ALT 22 Alkaline Phosphatase 68 Total Protein 7.1 Albumin 4.4 Vitamin B12 Folate TSH 0.79 Free T4 0.95 Fld Lyme DNA (PCR) CSF Cryptococcus Ag CSF Mening/Enceph PCR Lyme Screen IgG & IgM Lyme Progressive Test Lyme Disease DNA (PCR) NOT DETECTED 08/05/20 08:17 Sodium Potassium Chloride Carbon Dioxide Anion Gap BUN Creatinine Estim Creat Clear Calc Estimated GFR Fasting Glucose Estimat Average Glucose Hemoglobin A1c % Calcium Magnesium Total Bilirubin Direct Bilirubin AST ALT Alkaline Phosphatase Total Protein Albumin Vitamin B12 318 Folate 12.3 TSH Free T4 Fld Lyme DNA (PCR) CSF Cryptococcus Ag CSF Mening/Enceph PCR Lyme Screen IgG & IgM Lyme Progressive Test Lyme Disease DNA (PCR) Imaging Radiology Impressions: ITS Impressions Head CT 08/02/20 22:03 IMPRESSION: No acute intracranial pathology. Knee X-Ray 08/02/20 22:27 IMPRESSION: No visible acute fracture dislocation. There is mild spurring superior patella. Medications Medications Current Medications Generic Name Dose Route Start Last Admin Trade Name Freq PRN Reason Stop Dose Admin Acetaminophen 650 mg 08/04/20 00:57 08/04/20 12:01 Acetaminophen 325 Mg Tablet PO 650 mg Q6H PRN Administration Headache/Pain Mild Scale (1-3) Al Hydroxide/Mg Hydroxide 30 ml 08/04/20 01:20 Magnesium Hydrox/Alum Hydrox 30 Ml Oral.Susp PO Q6H PRN Heartburn/Nausea Albuterol Sulfate 2 puff 08/04/20 01:51 Albuterol Sulfate 90 Mcg 8 Gm Inhaler INHALE Q4H PRN wheezing Allopurinol 100 mg 08/04/20 09:00 08/05/20 08:05 Allopurinol 100 Mg Tablet PO 100 mg DAILY [place] Administration Atorvastatin Calcium 40 mg 08/04/20 09:00 08/05/20 08:05 Atorvastatin Calcium 40 Mg Tablet PO 40 mg DAILY [place] Administration Clonazepam 0.5 mg 08/04/20 01:51 Clonazepam 0.5 Mg Tablet PO DAILY PRN anxiety attack Diltiazem HCl 120 mg 08/04/20 09:00 08/05/20 08:05 Diltiazem Hcl Cd 120 Mg Cap.Er.Deg PO 120 mg DAILY [place] Administration Protocol Escitalopram Oxalate 10 mg 08/04/20 21:00 08/04/20 22:22 Escitalopram Oxalate 10 Mg Tablet PO 10 mg BEDTIME [place] Administration Famotidine 40 mg 08/04/20 01:51 08/05/20 14:21 Famotidine 20 Mg Tablet PO 40 mg BID PRN Administration heartburn Hydroxyzine HCl 25 mg 08/04/20 00:57 Hydroxyzine Hcl 25 Mg Tablet PO BEDTIME PRN Anxiety Hydroxyzine HCl 25 - 50 mg 08/04/20 01:51 Hydroxyzine Hcl 25 Mg Tablet PO TID PRN anxiety Losartan Potassium 100 mg 08/04/20 09:00 08/05/20 08:05 Losartan Potassium 50 Mg Tablet PO 100 mg DAILY [place] Administration Protocol Magnesium Hydroxide 30 ml 08/04/20 01:20 Milk Of Magnesia 30 Ml Oral.Susp PO DAILY PRN Constipation Pharmacy Consult 1 each 08/03/20 16:45 Consult Rx Perform Med Rec MISCELLANE ONCE PRN Consult order Pharmacy Consult 1 each 08/03/20 16:51 Consult Rx Perform Med Rec MISCELLANE ONCE PRN Consult order Risperidone 1 mg 08/05/20 21:00 Risperidone 1 Mg Tablet PO BID [place] Trazodone HCl 50 mg 08/04/20 00:57 08/04/20 22:21 Trazodone Hcl 50 Mg Tablet PO 50 mg BEDTIME PRN Administration Insomnia Allergies Allergies Allergy/AdvReac Type Severity Reaction Status Date / Time No Known Allergies Allergy Verified 08/02/20 17:33 [No Known Allergies*] Assessment & Plan Assessment & Plan (1) Substance-induced psychotic disorder with delusions: Status: Acute Code(s): F19.950 - Other psychoactive substance use, unspecified with psychoactive substance-induced psychotic disorder with delusions Assessment and Plan: Mr. Altamirano is a 50 year-old male with hx of MDD, no prior hx of psychosis who was brought to [facility] due to 2 week hx of psychosis and paranoia and disorganized behavior. Extensive medical work up completed in ED, including head CT, LP (meningitis/encephalitis) no significant finding to account for new onset psychosis. In the ED, his utox was negative but upon interview with pt and his , both admit using cocaine regularly until two months ago. On the unit, pt has significantly clear in terms of psychosis and presents as much more organized. At this point suspect psychosis is cocaine induced. Pt does minimize substance use and its effect on his mood and ability to function. We discussed risks, benefits and alternative treatment options. PLAN: 1. continue risperidone 1mg po BID 2. Obtain collateral information 3. 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
[2020-08-05 17:41] LABS: VDRL Qualitative CSF Nonreactive (Nonreactive)
[2020-08-05 18:07] LABS: HSV 1 DNA, CSF Not Detected (Not Detected); HSV 2 DNA, CSF Not Detected (Not Detected); Specimen Source CSF
[2020-08-05 19:35] VITALS: BP 111/59; PULSE 65; TEMP 36.5
[2020-08-05] MEDS: Acetaminophen 325 MG TABLET 650 MG PO (21:27)
[2020-08-05] MEDS: Escitalopram Oxalate 10 MG TABLET PO (21:28)
[2020-08-05] MEDS: traZODone HCL 50 MG TABLET PO (21:28)
[2020-08-05] MEDS: risperiDONE 1 MG TABLET PO (21:28)
[2020-08-06 05:01] LABS: Babesia IgG <1:64 titer (<1:64); Babesia IgM <1:20 titer (<1:20)
[2020-08-06 06:00] VITALS: BP 119/74; PULSE 83; TEMP 36.2
[2020-08-06 08:15] VITALS: BP 115/76; PULSE 72
[2020-08-06] MEDS: Atorvastatin Calcium 40 MG TABLET PO (08:15)
[2020-08-06] MEDS: Losartan Potassium 50 MG TABLET 100 MG PO (08:15)
[2020-08-06] MEDS: risperiDONE 1 MG TABLET PO ×2 (08:15→20:35)
[2020-08-06] MEDS: allopurinoL 100 MG TABLET PO (08:15)
[2020-08-06] MEDS: dilTIAZem HCL CD 120 MG CAP.ER.DEG PO (08:15)
[2020-08-06 09:35] LABS: Cryptococcal Ag Source CSF
--- NOTE | 2020-08-06 14:49 | HO.PSYCHPN ---
Subjective Subjective Date of Service: 08/06/20 Reason For Visit: Psychosis Interim History: Met with patient who reports that he is doing good. He denies any depression or SI or AVH. Feels that medications are working well however the a.m. Risperdal dose is making him tired. Patient agrees to switch dosing to have full dose at bedtime. Otherwise he has no complaints and no other requests. Medication Compliance: Yes Side effects from medications: Yes (sedation ) Attending Groups: Yes Mental Status Exam Mental Status Exam Narrative: Appearance: casually groomed, fair hygiene, Behavior: calm, cooperative Psychomotor: no agitation or retardation noted Speech: clear, normal rate/rhythm/volume, spontaneous TP:logical, goal oriented TC: on treatment Mood: good Affect:brighter, non labile SI:none HI:none AH/VH:less AH Delusions:none expressed; l Insight/judgment:fair x 2. does minimize substance use Memory/cog: alert, oriented x 3. grossly intact to conversational testing. Diagnostics Vital Signs (24Hr): Vital Signs - 24 hr 08/05/20 19:35 08/06/20 06:00 08/06/20 08:15 Temperature 97.7 F 97.2 F Pulse Rate 65 83 72 Blood Pressure 111/59 L 119/74 115/76 Body Mass Index 36.3 Labs Results: 08/03/20 12:26 08/05/20 08:17 Labs: Laboratory Results - last 48 hr 08/03/20 08/03/20 08/03/20 12:27 13:19 13:19 Sodium Potassium Chloride Carbon Dioxide Anion Gap BUN Creatinine Estim Creat Clear Calc Estimated GFR Fasting Glucose Estimat Average Glucose Hemoglobin A1c % Calcium Magnesium Total Bilirubin Direct Bilirubin AST ALT Alkaline Phosphatase Total Protein Albumin Vitamin B12 Folate TSH Free T4 Fld Lyme DNA (PCR) CSF VDRL Nonreactive CSF Herpes I DNA (PCR) CSF Herpes II DNA (PCR) Babesia microti IgG Ab <1:64 Babesia microti IgM Ab <1:20 Babesia Interpretation SEE NOTE Lyme Disease DNA (PCR) Cryptococcal Ag Note CSF Body Source 08/03/20 08/03/20 08/05/20 13:19 13:19 08:17 Sodium 140 Potassium 4.6 Chloride 105 Carbon Dioxide 28 Anion Gap 12 BUN 21 H Creatinine 1.16 Estim Creat Clear Calc 90.0 Estimated GFR > 60 Fasting Glucose 99 Estimat Average Glucose Hemoglobin A1c % Calcium 9.3 Magnesium 2.4 Total Bilirubin 1.0 Direct Bilirubin 0.3 AST 17 ALT 22 Alkaline Phosphatase 68 Total Protein 7.1 Albumin 4.4 Vitamin B12 Folate TSH 0.79 Free T4 0.95 Fld Lyme DNA (PCR) CSF VDRL CSF Herpes I DNA (PCR) Not Detected CSF Herpes II DNA (PCR) Not Detected Babesia microti IgG Ab Babesia microti IgM Ab Babesia Interpretation Lyme Disease DNA (PCR) NOT DETECTED Cryptococcal Ag Note Body Source CSF 08/05/20 08/05/20 08:17 08:17 Sodium Potassium Chloride Carbon Dioxide Anion Gap BUN Creatinine Estim Creat Clear Calc Estimated GFR Fasting Glucose Estimat Average Glucose 111 Hemoglobin A1c % 5.5 Calcium Magnesium Total Bilirubin Direct Bilirubin AST ALT Alkaline Phosphatase Total Protein Albumin Vitamin B12 318 Folate 12.3 TSH Free T4 Fld Lyme DNA (PCR) CSF VDRL CSF Herpes I DNA (PCR) CSF Herpes II DNA (PCR) Babesia microti IgG Ab Babesia microti IgM Ab Babesia Interpretation Lyme Disease DNA (PCR) Cryptococcal Ag Note Body Source Imaging Radiology Impressions: ITS Impressions Head CT 08/02/20 22:03 IMPRESSION: No acute intracranial pathology. Knee X-Ray 08/02/20 22:27 IMPRESSION: No visible acute fracture dislocation. There is mild spurring superior patella. Medications Medications Current Medications Generic Name Dose Route Start Last Admin Trade Name Freq PRN Reason Stop Dose Admin Acetaminophen 650 mg 08/04/20 00:57 08/05/20 21:27 Acetaminophen 325 Mg Tablet PO 650 mg Q6H PRN Administration Headache/Pain Mild Scale (1-3) Al Hydroxide/Mg Hydroxide 30 ml 08/04/20 01:20 Magnesium Hydrox/Alum Hydrox 30 Ml Oral.Susp PO Q6H PRN Heartburn/Nausea Albuterol Sulfate 2 puff 08/04/20 01:51 Albuterol Sulfate 90 Mcg 8 Gm Inhaler INHALE Q4H PRN wheezing Allopurinol 100 mg 08/04/20 09:00 08/06/20 08:15 Allopurinol 100 Mg Tablet PO 100 mg DAILY [place] Administration Atorvastatin Calcium 40 mg 08/04/20 09:00 08/06/20 08:15 Atorvastatin Calcium 40 Mg Tablet PO 40 mg DAILY [place] Administration Clonazepam 0.5 mg 08/04/20 01:51 Clonazepam 0.5 Mg Tablet PO DAILY PRN anxiety attack Diltiazem HCl 120 mg 08/04/20 09:00 08/06/20 08:15 Diltiazem Hcl Cd 120 Mg Cap.Er.Deg PO 120 mg DAILY [place] Administration Protocol Escitalopram Oxalate 10 mg 08/04/20 21:00 08/05/20 21:28 Escitalopram Oxalate 10 Mg Tablet PO 10 mg BEDTIME [place] Administration Famotidine 40 mg 08/04/20 01:51 08/05/20 14:21 Famotidine 20 Mg Tablet PO 40 mg BID PRN Administration heartburn Hydroxyzine HCl 25 mg 08/04/20 00:57 Hydroxyzine Hcl 25 Mg Tablet PO BEDTIME PRN Anxiety Hydroxyzine HCl 25 - 50 mg 08/04/20 01:51 Hydroxyzine Hcl 25 Mg Tablet PO TID PRN anxiety Losartan Potassium 100 mg 08/04/20 09:00 08/06/20 08:15 Losartan Potassium 50 Mg Tablet PO 100 mg DAILY [place] Administration Protocol Magnesium Hydroxide 30 ml 08/04/20 01:20 Milk Of Magnesia 30 Ml Oral.Susp PO DAILY PRN Constipation Pharmacy Consult 1 each 08/03/20 16:45 Consult Rx Perform Med Rec MISCELLANE ONCE PRN Consult order Pharmacy Consult 1 each 08/03/20 16:51 Consult Rx Perform Med Rec MISCELLANE ONCE PRN Consult order Risperidone 1 mg 08/05/20 21:00 08/06/20 08:15 Risperidone 1 Mg Tablet PO 1 mg BID [place] Administration Trazodone HCl 50 mg 08/04/20 00:57 08/05/20 21:28 Trazodone Hcl 50 Mg Tablet PO 50 mg BEDTIME PRN Administration Insomnia Allergies Allergies Allergy/AdvReac Type Severity Reaction Status Date / Time No Known Allergies Allergy Verified 08/02/20 17:33 [No Known Allergies*] Assessment & Plan Assessment & Plan (1) Substance-induced psychotic disorder with delusions: Status: Acute Code(s): F19.950 - Other psychoactive substance use, unspecified with psychoactive substance-induced psychotic disorder with delusions Assessment and Plan: Mr. Altamirano is a 50 year-old male with hx of MDD, no prior hx of psychosis who was brought to [facility] due to 2 week hx of psychosis and paranoia and disorganized behavior. Extensive medical work up completed in ED, including head CT, LP (meningitis/encephalitis) no significant finding to account for new onset psychosis. In the ED, his utox was negative but upon interview with pt and his , both admit using cocaine regularly until two months ago. On the unit, pt has significantly clear in terms of psychosis and presents as much more organized. At this point suspect psychosis is cocaine induced. Pt does minimize substance use and its effect on his mood and ability to function. We discussed risks, benefits and alternative treatment options. patient reports mood is good, no SI, depression or AVH PLAN: 1. Changed to Risperdal 2 mg at bedtime (instead of 1mg BID; patient complains of daytime sedation from morning dose) 2. Obtain collateral information 3. 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
[2020-08-06] MEDS: Escitalopram Oxalate 10 MG TABLET PO (20:35)
[2020-08-06] MEDS: Famotidine 20 MG TABLET 40 MG PO (20:36)
[2020-08-06 20:37] VITALS: BP 122/77; PULSE 98; RESP 18; TEMP 37; O2SAT 98
[2020-08-06] MEDS: traZODone HCL 50 MG TABLET PO ×2 (22:17→23:31)
[2020-08-07] MEDS: hydrOXYzine HCL 25 MG TABLET PO ×2 (01:02→21:13)
[2020-08-07] MEDS: Atorvastatin Calcium 40 MG TABLET PO (08:28)
[2020-08-07] MEDS: allopurinoL 100 MG TABLET PO (08:28)
[2020-08-07 08:30] VITALS: BP 126/84; PULSE 90; RESP 16; TEMP 36.6; O2SAT 98
[2020-08-07 09:14] VITALS: BP 126/84; PULSE 90
[2020-08-07] MEDS: dilTIAZem HCL CD 120 MG CAP.ER.DEG PO (09:14)
[2020-08-07 09:15] VITALS: BP 126/84; PULSE 90
[2020-08-07] MEDS: Losartan Potassium 50 MG TABLET 100 MG PO (09:15)
--- NOTE | 2020-08-07 14:07 | P.PNPSI_ITS ---
Subjective Subjective Date of Service: 08/07/20 Reason For Visit: Psychosis Interim History: patient reports he is doing good. He denies depression. Denies SI or AVH. Feels that medication and denies side effects. He reports he slept a little better last night but still waking and restless. Review of Systems Review of Systems No chest pain or shortness breath no nausea no vomiting Yes all other systems are reviewed and are negative Cardiovascular: Denies chest pain, Denies rapid heart rate, Denies lightheadedness and Denies dyspnea Respiratory: Denies cough and Denies dyspnea Gastrointestinal: Denies constipation and Denies diarrhea Mental Status Exam Mental Status Exam Narrative: Appearance: casually groomed, fair hygiene, Behavior: calm, cooperative Psychomotor: no agitation or retardation noted Speech: clear, normal rate/rhythm/volume, spontaneous TP:logical, goal oriented TC: on treatment Mood: good Affect:brighter, non labile SI:none HI:none AH/VH:less AH Delusions:none expressed; l Insight/judgment:fair x 2. does minimize substance use Memory/cog: alert, oriented x 3. grossly intact to conversational testing. Diagnostics Vital Signs (24Hr): Vital Signs - 24 hr 08/06/20 20:37 08/07/20 08:30 08/07/20 09:14 Temperature 98.6 F 97.8 F Pulse Rate 98 90 90 Respiratory Rate 18 16 Blood Pressure 122/77 126/84 126/84 Pulse Oximetry 98 98 08/07/20 09:15 Temperature Pulse Rate 90 Respiratory Rate Blood Pressure 126/84 Pulse Oximetry Body Mass Index 36.3 Labs Results: 08/03/20 12:26 08/05/20 08:17 Labs: Laboratory Results - last 48 hr 08/03/20 08/03/20 08/03/20 12:27 13:19 13:19 CSF VDRL Nonreactive CSF Herpes I DNA (PCR) CSF Herpes II DNA (PCR) Babesia microti IgG Ab <1:64 Babesia microti IgM Ab <1:20 Babesia Interpretation SEE NOTE Cryptococcal Ag Note CSF Body Source 08/03/20 13:19 CSF VDRL CSF Herpes I DNA (PCR) Not Detected CSF Herpes II DNA (PCR) Not Detected Babesia microti IgG Ab Babesia microti IgM Ab Babesia Interpretation Cryptococcal Ag Note Body Source CSF Imaging Radiology Impressions: ITS Impressions Head CT 08/02/20 22:03 IMPRESSION: No acute intracranial pathology. Knee X-Ray 08/02/20 22:27 IMPRESSION: No visible acute fracture dislocation. There is mild spurring superior patella. Medications Medications Current Medications Generic Name Dose Route Start Last Admin Trade Name Freq PRN Reason Stop Dose Admin Acetaminophen 650 mg 08/04/20 00:57 08/05/20 21:27 Acetaminophen 325 Mg Tablet PO 650 mg Q6H PRN Administration Headache/Pain Mild Scale (1-3) Al Hydroxide/Mg Hydroxide 30 ml 08/04/20 01:20 Magnesium Hydrox/Alum Hydrox 30 Ml Oral.Susp PO Q6H PRN Heartburn/Nausea Albuterol Sulfate 2 puff 08/04/20 01:51 Albuterol Sulfate 90 Mcg 8 Gm Inhaler INHALE Q4H PRN wheezing Allopurinol 100 mg 08/04/20 09:00 08/07/20 08:28 Allopurinol 100 Mg Tablet PO 100 mg DAILY [place] Administration Atorvastatin Calcium 40 mg 08/04/20 09:00 08/07/20 08:28 Atorvastatin Calcium 40 Mg Tablet PO 40 mg DAILY [place] Administration Clonazepam 0.5 mg 08/04/20 01:51 Clonazepam 0.5 Mg Tablet PO DAILY PRN anxiety attack Diltiazem HCl 120 mg 08/04/20 09:00 08/07/20 09:14 Diltiazem Hcl Cd 120 Mg Cap.Er.Deg PO 120 mg DAILY [place] Administration Protocol Escitalopram Oxalate 10 mg 08/04/20 21:00 08/06/20 20:35 Escitalopram Oxalate 10 Mg Tablet PO 10 mg BEDTIME [place] Administration Famotidine 40 mg 08/04/20 01:51 08/06/20 20:36 Famotidine 20 Mg Tablet PO 40 mg BID PRN Administration heartburn Hydroxyzine HCl 25 mg 08/04/20 00:57 Hydroxyzine Hcl 25 Mg Tablet PO BEDTIME PRN Anxiety Hydroxyzine HCl 25 - 50 mg 08/04/20 01:51 08/07/20 01:02 Hydroxyzine Hcl 25 Mg Tablet PO 50 mg TID PRN Administration anxiety Losartan Potassium 100 mg 08/04/20 09:00 08/07/20 09:15 Losartan Potassium 50 Mg Tablet PO 100 mg DAILY [place] Administration Protocol Magnesium Hydroxide 30 ml 08/04/20 01:20 Milk Of Magnesia 30 Ml Oral.Susp PO DAILY PRN Constipation Pharmacy Consult 1 each 08/03/20 16:45 Consult Rx Perform Med Rec MISCELLANE ONCE PRN Consult order Pharmacy Consult 1 each 08/03/20 16:51 Consult Rx Perform Med Rec MISCELLANE ONCE PRN Consult order Risperidone 2 mg 08/07/20 21:00 Risperidone 2 Mg Tablet PO BEDTIME [place] Trazodone HCl 50 mg 08/04/20 00:57 08/06/20 23:31 Trazodone Hcl 50 Mg Tablet PO 50 mg BEDTIME PRN Administration Insomnia Allergies Allergies Allergy/AdvReac Type Severity Reaction Status Date / Time No Known Allergies Allergy Verified 08/02/20 17:33 [No Known Allergies*] Assessment & Plan Assessment & Plan (1) Substance-induced psychotic disorder with delusions: Status: Acute Code(s): F19.950 - Other psychoactive substance use, unspecified with psychoactive substance-induced psychotic disorder with delusions Assessment and Plan: Mr. Altamirano is a 50 year-old male with hx of MDD, no prior hx of psychosis who was brought to [facility] ED due to 2 week hx of psychosis and paranoia and disorganized behavior. Extensive medical work up completed in ED, including head CT, LP (meningitis/encephalitis) no significant finding to account for new onset psychosis. In the ED, his utox was negative but upon interview with pt and his , both admit using cocaine regularly until two months ago. On the unit, pt has significantly clear in terms of psychosis and presents as much more orga nized. At this point suspect psychosis is cocaine induced. Pt does minimize substance use and its effect on his mood and ability to function. We discussed risks, benefits and alternative treatment options. Plan- no change continue as below: 1 . Changed to Risperdal 2 mg at bedtime (instead of 1mg BID; patient complains of daytime sedation from morning dose) 2. Obtain collateral information 3. 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
[2020-08-07 18:00] VITALS: BP 121/66; PULSE 90; TEMP 36.4
[2020-08-07] MEDS: Escitalopram Oxalate 10 MG TABLET PO (21:10)
[2020-08-07] MEDS: risperiDONE 2 MG TABLET PO (21:10)
[2020-08-07] MEDS: traZODone HCL 50 MG TABLET PO (21:13)
[2020-08-07] MEDS: Famotidine 20 MG TABLET 40 MG PO (21:13)
[2020-08-08 06:00] VITALS: BP 118/69; PULSE 64; RESP 18; TEMP 36.8; O2SAT 98
[2020-08-08] MEDS: Losartan Potassium 50 MG TABLET 100 MG PO (07:44)
[2020-08-08 07:45] VITALS: BP 128/73; PULSE 86
[2020-08-08] MEDS: dilTIAZem HCL CD 120 MG CAP.ER.DEG PO (07:45)
[2020-08-08] MEDS: allopurinoL 100 MG TABLET PO (07:45)
[2020-08-08] MEDS: Atorvastatin Calcium 40 MG TABLET PO (07:45)
--- NOTE | 2020-08-08 11:32 | P.PNPSI_ITS ---
Subjective Subjective Date of Service: 08/08/20 Reason For Visit: Psychosis Interim History: Patient denies depression. Denies SI or AVH. Feels that medication is helpful and denies side effects. He reports he slept better last night but still waking and restless. Review of Systems Review of Systems No chest pain or shortness breath no nausea no vomiting Yes all other systems are reviewed and are negative Cardiovascular: Denies chest pain, Denies rapid heart rate, Denies l ightheadedness and Denies dyspnea Respiratory: Denies cough and Denies dyspnea Gastrointestinal: Denies constipation and Denies diarrhea Mental Status Exam Mental Status Exam Narrative: Appearance: casually groomed, fair hygiene, Behavior: calm, cooperative Psychomotor: no agitation or retardation noted Speech: clear, normal rate/rhythm/volume, spontaneous TP:logical, goal oriented TC: on treatment Mood: good Affect:brighter, non labile SI:none HI:none AH/VH:less AH Delusions:none expressed; l Insight/judgment:fair x 2. does minimize substance use Memory/cog: alert, oriented x 3. grossly intact to conversational testing. Diagnostics Vital Signs (24Hr): Vital Signs - 24 hr 08/07/20 18:00 08/08/20 06:00 08/08/20 07:45 Temperature 97.5 F 98.2 F Pulse Rate 90 64 86 Respiratory Rate 18 Blood Pressure 121/66 118/69 128/73 Pulse Oximetry 98 Body Mass Index 36.3 Labs Results: 08/03/20 12:26 08/05/20 08:17 Imaging Radiology Impressions: ITS Impressions Head CT 08/02/20 22:03 IMPRESSION: No acute intracranial pathology. Knee X-Ray 08/02/20 22:27 IMPRESSION: No visible acute fracture dislocation. There is mild spurring superior patella. Medications Medications Current Medications Generic Name Dose Route Start Last Admin Trade Name Freq PRN Reason Stop Dose Admin Acetaminophen 650 mg 08/04/20 00:57 08/05/20 21:27 Acetaminophen 325 Mg Tablet PO 650 mg Q6H PRN Administration Headache/Pain Mild Scale (1-3) Al Hydroxide/Mg Hydroxide 30 ml 08/04/20 01:20 Magnesium Hydrox/Alum Hydrox 30 Ml Oral.Susp PO Q6H PRN Heartburn/Nausea Albuterol Sulfate 2 puff 08/04/20 01:51 Albuterol Sulfate 90 Mcg 8 Gm Inhaler INHALE Q4H PRN wheezing Allopurinol 100 mg 08/04/20 09:00 08/08/20 07:45 Allopurinol 100 Mg Tablet PO 100 mg DAILY [place] Administration Atorvastatin Calcium 40 mg 08/04/20 09:00 08/08/20 07:45 Atorvastatin Calcium 40 Mg Tablet PO 40 mg DAILY [place] Administration Clonazepam 0.5 mg 08/04/20 01:51 Clonazepam 0.5 Mg Tablet PO DAILY PRN anxiety attack Diltiazem HCl 120 mg 08/04/20 09:00 08/08/20 07:45 Diltiazem Hcl Cd 120 Mg Cap.Er.Deg PO 120 mg DAILY [place] Administration Protocol Escitalopram Oxalate 10 mg 08/04/20 21:00 08/07/20 21:10 Escitalopram Oxalate 10 Mg Tablet PO 10 mg BEDTIME [place] Administration Famotidine 40 mg 08/04/20 01:51 08/07/20 21:13 Famotidine 20 Mg Tablet PO 40 mg BID PRN Administration heartburn Hydroxyzine HCl 25 mg 08/04/20 00:57 08/07/20 21:13 Hydroxyzine Hcl 25 Mg Tablet PO 25 mg BEDTIME PRN Administration Anxiety Hydroxyzine HCl 25 - 50 mg 08/04/20 01:51 08/07/20 01:02 Hydroxyzine Hcl 25 Mg Tablet PO 50 mg TID PRN Administration anxiety Losartan Potassium 100 mg 08/04/20 09:00 08/08/20 07:44 Losartan Potassium 50 Mg Tablet PO 100 mg DAILY [place] Administration Protocol Magnesium Hydroxide 30 ml 08/04/20 01:20 Milk Of Magnesia 30 Ml Oral.Susp PO DAILY PRN Constipation Pharmacy Consult 1 each 08/03/20 16:45 Consult Rx Perform Med Rec MISCELLANE ONCE PRN Consult order Pharmacy Consult 1 each 08/03/20 16:51 Consult Rx Perform Med Rec MISCELLANE ONCE PRN Consult order Risperidone 2 mg 08/07/20 21:00 08/07/20 21:10 Risperidone 2 Mg Tablet PO 2 mg BEDTIME [place] Administration Trazodone HCl 50 mg 08/04/20 00:57 08/07/20 21:13 Trazodone Hcl 50 Mg Tablet PO 50 mg BEDTIME PRN Administration Insomnia Allergies Allergies Allergy/AdvReac Type Severity Reaction Status Date / Time No Known Allergies Allergy Verified 08/02/20 17:33 [No Known Allergies*] Assessment & Plan Assessment & Plan (1) Substance-induced psychotic disorder with delusions: Status: Acute Code(s): F19.950 - Other psychoactive substance use, unspecified with psychoactive substance-induced psychotic disorder with delusions Assessment and Plan: Mr. Altamirano is a 50 year-old male with hx of MDD, no prior hx of psychosis who was brought to [facility] due to 2 week hx of psychosis and paranoia and disorganized behavior. Extensive medical work up completed in ED, including head CT, LP (meningitis/encephalitis) no significant finding to account for new onset psychosis. In the ED, his utox was negative but upon interview with pt and his , both admit using cocaine regularly until two months ago. On the unit, pt has significantly clear in terms of psychosis and presents as much more organized. At this point suspect psychosis is cocaine induced. Pt does minimize substance use and its effect on his mood and ability to function. We discussed risks, benefits and alternative treatment options. Plan- no change continue as below: 1 . Changed to Risperdal 2 mg at bedtime (instead of 1mg BID; patient complains of daytime sedation from morning dose) 2. Obtain collateral information 3. 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
[2020-08-08] MEDS: Acetaminophen 325 MG TABLET 650 MG PO (13:32)
[2020-08-08] MEDS: Famotidine 20 MG TABLET 40 MG PO (13:33)
[2020-08-08 16:57] VITALS: BP 129/80; PULSE 90; TEMP 36.2; O2SAT 99
[2020-08-08] MEDS: risperiDONE 2 MG TABLET PO (21:23)
[2020-08-08] MEDS: traZODone HCL 50 MG TABLET PO (21:23)
[2020-08-08] MEDS: Escitalopram Oxalate 10 MG TABLET PO (21:23)
[2020-08-09 06:00] VITALS: BP 112/70; PULSE 65; RESP 16; TEMP 36.6; O2SAT 95
[2020-08-09] MEDS: Acetaminophen 325 MG TABLET 650 MG PO (08:21)
[2020-08-09] MEDS: Atorvastatin Calcium 40 MG TABLET PO (08:22)
[2020-08-09 08:23] VITALS: BP 127/84; PULSE 94
[2020-08-09] MEDS: Losartan Potassium 50 MG TABLET 100 MG PO (08:23)
[2020-08-09] MEDS: dilTIAZem HCL CD 120 MG CAP.ER.DEG PO (08:23)
[2020-08-09] MEDS: allopurinoL 100 MG TABLET PO (08:24)
--- NOTE | 2020-08-09 12:26 | P.PNPSI_ITS ---
Subjective Subjective Date of Service: 08/09/20 Reason For Visit: Psychosis Interim History: Patient denies depression. Denies SI or AVH. Feels that medication is helpful and denies side effects. He reports he still waking at night and restless. Review of Systems Review of Systems No chest pain or shortness breath no nausea no vomiting Yes all other systems are reviewed and are negative Cardiovascular: Denies chest pain, Denies rapid heart rate, Denies lightheadedness and Denies dyspnea Respiratory: Denies cough and Denies dyspnea Gastrointestinal: Denies constipation and Denies diarrhea Mental Status Exam Mental Status Exam Narrative: Appearance: alert and oriented x 3 casually groomed, fair hygiene, Behavior: calm, cooperative Psychomotor: no agitation or retardation noted Speech: clear, normal rate/rhythm/volume, spontaneous TP:logical, goal oriented TC: on treatment Mood: good Affect:brighter, non labile SI:denies HI:denies AH/VH:less AH Delusions:none expressed Insight/judgment:fair; minimize substance use Diagnostics Vital Signs (24Hr): Vital Signs - 24 hr 08/08/20 16:57 08/09/20 06:00 08/09/20 08:23 Temperature 97.2 F 97.9 F Pulse Rate 90 65 94 Respiratory Rate 16 Blood Pressure 129/80 112/70 127/84 Pulse Oximetry 99 95 Body Mass Index 36.3 Labs Results: 08/03/20 12:26 08/05/20 08:17 Imaging Radiology Impressions: ITS Impressions Head CT 08/02/20 22:03 IMPRESSION: No acute intracranial pathology. Knee X-Ray 08/02/20 22:27 IMPRESSION: No visible acute fracture dislocation. There is mild spurring superior patella. Medications Medications Current Medications Generic Name Dose Route Start Last Admin Trade Name Freq PRN Reason Stop Dose Admin Acetaminophen 650 mg 08/04/20 00:57 08/09/20 08:21 Acetaminophen 325 Mg Tablet PO 650 mg Q6H PRN Administration Headache/Pain Mild Scale (1-3) Al Hydroxide/Mg Hydroxide 30 ml 08/04/20 01:20 Magnesium Hydrox/Alum Hydrox 30 Ml Oral.Susp PO Q6H PRN Heartburn/Nausea Albuterol Sulfate 2 puff 08/04/20 01:51 Albuterol Sulfate 90 Mcg 8 Gm Inhaler INHALE Q4H PRN wheezing Allopurinol 100 mg 08/04/20 09:00 08/09/20 08:24 Allopurinol 100 Mg Tablet PO 100 mg DAILY [place] Administration Atorvastatin Calcium 40 mg 08/04/20 09:00 08/09/20 08:22 Atorvastatin Calcium 40 Mg Tablet PO 40 mg DAILY [place] Administration Diltiazem HCl 120 mg 08/04/20 09:00 08/09/20 08:23 Diltiazem Hcl Cd 120 Mg Cap.Er.Deg PO 120 mg DAILY [place] Administration Protocol Escitalopram Oxalate 10 mg 08/04/20 21:00 08/08/20 21:23 Escitalopram Oxalate 10 Mg Tablet PO 10 mg BEDTIME [place] Administration Famotidine 40 mg 08/04/20 01:51 08/08/20 13:33 Famotidine 20 Mg Tablet PO 40 mg BID PRN Administration heartburn Hydroxyzine HCl 25 mg 08/04/20 00:57 08/07/20 21:13 Hydroxyzine Hcl 25 Mg Tablet PO 25 mg BEDTIME PRN Administration Anxiety Hydroxyzine HCl 25 - 50 mg 08/04/20 01:51 08/07/20 01:02 Hydroxyzine Hcl 25 Mg Tablet PO 50 mg TID PRN Administration anxiety Losartan Potassium 100 mg 08/04/20 09:00 08/09/20 08:23 Losartan Potassium 50 Mg Tablet PO 100 mg DAILY [place] Administration Protocol Magnesium Hydroxide 30 ml 08/04/20 01:20 Milk Of Magnesia 30 Ml Oral.Susp PO DAILY PRN Constipation Pharmacy Consult 1 each 08/03/20 16:45 Consult Rx Perform Med Rec MISCELLANE ONCE PRN Consult order Pharmacy Consult 1 each 08/03/20 16:51 Consult Rx Perform Med Rec MISCELLANE ONCE PRN Consult order Risperidone 2 mg 08/07/20 21:00 08/08/20 21:23 Risperidone 2 Mg Tablet PO 2 mg BEDTIME [place] Administration Trazodone HCl 50 mg 08/04/20 00:57 08/08/20 21:23 Trazodone Hcl 50 Mg Tablet PO 50 mg BEDTIME PRN Administration Insomnia Allergies Allergies Allergy/AdvReac Type Severity Reaction Status Date / Time No Known Allergies Allergy Verified 08/02/20 17:33 [No Known Allergies*] Assessment & Plan Assessment & Plan (1) Substance-induced psychotic disorder with delusions: Status: Acute Code(s): F19.950 - Other psychoactive substance use, unspecified with psychoactive substance-induced psychotic disorder with delusions Assessment and Plan: Mr. Altamirano is a 50 year-old male with hx of MDD, no prior hx of psychosis who was brought to [facility] ED due to 2 week hx of psychosis and paranoia and disorgan ized behavior. Extensive medical work up completed in ED, including head CT, LP (meningitis/encephalitis) no significant finding to account for new onset psychosis. In the ED, his utox was negative but upon interview with pt and his , both admit using cocaine regularly until two months ago. On the unit, pt has significantly clear in terms of psychosis and presents as much more organized. At this point suspect psychosis is cocaine induced. Pt does minimize substance use and its effect on his mood and ability to function. We discussed risks, benefits and alternative treatment options. Plan- no change continue as below: 1 .Risperdal 2 mg at bedtime (instead of 1mg BID; patient complains of daytime sedation from morning dose) 2. Obtain collateral information 3. 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
[2020-08-09] MEDS: Ibuprofen 600 MG TABLET PO ×2 (13:05→20:19)
[2020-08-09] MEDS: risperiDONE 2 MG TABLET PO (20:19)
[2020-08-09] MEDS: Escitalopram Oxalate 10 MG TABLET PO (20:19)
[2020-08-09] MEDS: hydrOXYzine HCL 25 MG TABLET PO (20:22)
[2020-08-09] MEDS: traZODone HCL 50 MG TABLET PO (20:22)
[2020-08-09 20:23] VITALS: BP 131/94; PULSE 91; TEMP 36.7
[2020-08-10 08:02] VITALS: BP 117/73; PULSE 86
[2020-08-10] MEDS: allopurinoL 100 MG TABLET PO (08:02)
[2020-08-10] MEDS: Losartan Potassium 50 MG TABLET 100 MG PO (08:02)
[2020-08-10] MEDS: dilTIAZem HCL CD 120 MG CAP.ER.DEG PO (08:02)
[2020-08-10] MEDS: Atorvastatin Calcium 40 MG TABLET PO (08:02)
[2020-08-10] MEDS: Ibuprofen 600 MG TABLET PO (08:08)
--- NOTE | 2020-08-10 10:49 | P.DS_ITS ---
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: Status: Acute DS: Medications Discharge Medications Home Medications: Home Medications Medication Instructions Recorded Confirmed albuterol sulfate 2 puff INHALATION Q4-6H PRN 08/03/20 08/03/20 allopurinol 1 tab PO DAILY 08/03/20 08/03/20 diltiazem HCl [Tiadylt ER] 1 cap PO DAILY 08/03/20 08/03/20 losartan 1 tab PO DAILY 08/03/20 08/03/20 Previous Rx's Medication Instructions Recorded atorvastatin 40 mg PO DAILY #30 tab 08/10/20 escitalopram oxalate 10 mg PO BEDTIME #30 tab 08/10/20 famotidine 40 mg PO BID PRN #60 tab 08/10/20 ibuprofen 600 mg PO Q8H PRN #30 tab 08/10/20 risperidone 2 mg PO BEDTIME #30 tab 08/10/20 trazodone 50 mg PO BEDTIME PRN #30 tab 08/10/20 Mental Status Exam Mental Status Exam Narrative: Appearance: alert and oriented x 3 casually groomed, fair hygiene, Behavior: calm, cooperative Psychomotor: no agitation or retardation noted Speech: clear, normal rate/rhythm/volume, spontaneous TP:logical, goal oriented TC: on treatment Mood: good Affect:brighter, non labile SI:denies HI:denies AH/VH:less AH Delusions:none expressed Insight/judgment:fair; minimize substance use Data Data Completed and Pending Completed studies during hospitalization [Text1]: 08/03/20 08/03/20 08/03/20 12:25 12:26 12:27 WBC 9.2 RBC 5.31 Hgb 14.8 Hct 45.8 MCV 86.3 MCH 27.9 MCHC 32.3 RDW 14.0 Plt Count 289 MPV 10.0 Immature Gran % (Auto) 0.2 Neut % (Auto) 66.8 Lymph % (Auto) 25.3 [place] % (Auto) 6.3 Eos % (Auto) 1.0 Baso % (Auto) 0.4 Lymph # (Auto) 2.3 [place] # (Auto) 0.6 Eos # (Auto) 0.1 Baso # (Auto) 0.0 Abs Immat Gran (auto) 0.02 Absolute Neuts (auto) 6.2 Absolute Nucleated RBC 0.000 Nucleated RBC % (auto) 0.0 Sodium 138 Potassium 4.2 Chloride 103 Carbon Dioxide 27 Anion Gap 12 BUN 17 H Creatinine 0.98 Estim Creat Clear Calc 62.5 Estimated GFR > 60 POC Glucose Random Glucose 103 Fasting Glucose Estimat Average Glucose Hemoglobin A1c % Lactic Acid 0.9 Calcium 9.2 Magnesium Total Bilirubin 1.4 H Direct Bilirubin 0.4 AST 18 ALT 20 Alkaline Phosphatase 63 Total Protein 7.0 Albumin 4.4 Vitamin B12 Folate TSH Free T4 Fld Lyme DNA (PCR) CSF Tube Number CSF Volume CSF Appearance CSF Color CSF WBC CSF RBC CSF Lymphocytes CSF Monocytes % CSF Appearance (b) CSF Glucose CSF Total Protein CSF VDRL CSF Lyme IgG (Immblot) CSF Lyme IgG Bands Det CSF Lyme IgM (Immblot) CSF Lyme IgM Bands Det CSF Cryptococcus Ag CSF Herpes I DNA (PCR) CSF Herpes II DNA (PCR) CSF Mening/Enceph PCR A. phagocytophilum IgG A. phagocytophilum IgM A.phagocytophilum Intrp A. phagocytophilum Cmmt Babesia microti IgG Ab Babesia microti IgM Ab Babesia Interpretation Lyme Screen IgG & IgM Lyme Progressive Test Lyme Disease DNA (PCR) Cryptococcal Ag Note E. chaffeensis IgG Ab E. chaffeensis IgM Ab E. chaffeensis Interp E. chaffeensis Comment Body Source 08/03/20 08/03/20 08/03/20 12:27 12:27 12:49 WBC RBC Hgb Hct MCV MCH MCHC RDW Plt Count MPV Immature Gran % (Auto) Neut % (Auto) Lymph % (Auto) [place] % (Auto) Eos % (Auto) Baso % (Auto) Lymph # (Auto) [place] # (Auto) Eos # (Auto) Baso # (Auto) Abs Immat Gran (auto) Absolute Neuts (auto) Absolute Nucleated RBC Nucleated RBC % (auto) Sodium Potassium Chloride Carbon Dioxide Anion Gap BUN Creatinine Estim Creat Clear Calc Estimated GFR POC Glucose 106 Random Glucose Fasting Glucose Estimat Average Glucose Hemoglobin A1c % Lactic Acid Calcium Magnesium Total Bilirubin Direct Bilirubin AST ALT Alkaline Phosphatase Total Protein Albumin Vitamin B12 Folate TSH Free T4 Fld Lyme DNA (PCR) CSF Tube Number CSF Volume CSF Appearance CSF Color CSF WBC CSF RBC CSF Lymphocytes CSF Monocytes % CSF Appearance (b) CSF Glucose CSF Total Protein CSF VDRL CSF Lyme IgG (Immblot) CSF Lyme IgG Bands Det CSF Lyme IgM (Immblot) CSF Lyme IgM Bands Det CSF Cryptococcus Ag CSF Herpes I DNA (PCR) CSF Herpes II DNA (PCR) CSF Mening/Enceph PCR A. phagocytophilum IgG Pending A. phagocytophilum IgM Pending A.phagocytophilum Intrp Pending A. phagocytophilum Cmmt Pending Babesia microti IgG Ab <1:64 Babesia microti IgM Ab <1:20 Babesia Interpretation SEE NOTE Lyme Screen IgG & IgM <0.90 Lyme Progressive Test TNP Lyme Disease DNA (PCR) Cryptococcal Ag Note E. chaffeensis IgG Ab Pending E. chaffeensis IgM Ab Pending E. chaffeensis Interp Pending E. chaffeensis Comment Pending Body Source 08/03/20 08/03/20 08/03/20 13:19 13:19 13:19 WBC RBC Hgb Hct MCV MCH MCHC RDW Plt Count MPV Immature Gran % (Auto) Neut % (Auto) Lymph % (Auto) [place] % (Auto) Eos % (Auto) Baso % (Auto) Lymph # (Auto) [place] # (Auto) Eos # (Auto) Baso # (Auto) Abs Immat Gran (auto) Absolute Neuts (auto) Absolute Nucleated RBC Nucleated RBC % (auto) Sodium Potassium Chloride Carbon Dioxide Anion Gap BUN Creatinine Estim Creat Clear Calc Estimated GFR POC Glucose Random Glucose Fasting Glucose Estimat Average Glucose Hemoglobin A1c % Lactic Acid Calcium Magnesium Total Bilirubin Direct Bilirubin AST ALT Alkaline Phosphatase Total Protein Albumin Vitamin B12 Folate TSH Free T4 Fld Lyme DNA (PCR) CSF Tube Number 1 CSF Volume CSF Appearance CSF Color CSF WBC CSF RBC CSF Lymphocytes CSF Monocytes % CSF Appearance (b) Clear, Colorless CSF Glucose 72 CSF Total Protein 60.8 H CSF VDRL CSF Lyme IgG (Immblot) CSF Lyme IgG Bands Det CSF Lyme IgM (Immblot) CSF Lyme IgM Bands Det CSF Cryptococcus Ag SEE NOTE CSF Herpes I DNA (PCR) CSF Herpes II DNA (PCR) CSF Mening/Enceph PCR SEE NOTE A. phagocytophilum IgG A. phagocytophilum IgM A.phagocytophilum Intrp A. phagocytophilum Cmmt Babesia microti IgG Ab Babesia microti IgM Ab Babesia Interpretation Lyme Screen IgG & IgM Lyme Progressive Test Lyme Disease DNA (PCR) Cryptococcal Ag Note CSF E. chaffeensis IgG Ab E. chaffeensis IgM Ab E. chaffeensis Interp E. chaffeensis Comment Body Source 08/03/20 08/03/20 08/03/20 13:19 13:19 13:19 WBC RBC Hgb Hct MCV MCH MCHC RDW Plt Count MPV Immature Gran % (Auto) Neut % (Auto) Lymph % (Auto) [place] % (Auto) Eos % (Auto) Baso % (Auto) Lymph # (Auto) [place] # (Auto) Eos # (Auto) Baso # (Auto) Abs Immat Gran (auto) Absolute Neuts (auto) Absolute Nucleated RBC Nucleated RBC % (auto) Sodium Potassium Chloride Carbon Dioxide Anion Gap BUN Creatinine Estim Creat Clear Calc Estimated GFR POC Glucose Random Glucose Fasting Glucose Estimat Average Glucose Hemoglobin A1c % Lactic Acid Calcium Magnesium Total Bilirubin Direct Bilirubin AST ALT Alkaline Phosphatase Total Protein Albumin Vitamin B12 Folate TSH Free T4 Fld Lyme DNA (PCR) CSF Tube Number 4 CSF Volume 2.0 CSF Appearance CLEAR CSF Color COLORLESS CSF WBC 4 CSF RBC 0 CSF Lymphocytes 70 CSF Monocytes % 30 CSF Appearance (b) CSF Glucose CSF Total Protein CSF VDRL Nonreactive CSF Lyme IgG (Immblot) CSF Lyme IgG Bands Det CSF Lyme IgM (Immblot) CSF Lyme IgM Bands Det CSF Cryptococcus Ag CSF Herpes I DNA (PCR) Not Detected CSF Herpes II DNA (PCR) Not Detected CSF Mening/Enceph PCR A. phagocytophilum IgG A. phagocytophilum IgM A.phagocytophilum Intrp A. phagocytophilum Cmmt Babesia microti IgG Ab Babesia microti IgM Ab Babesia Interpretation Lyme Screen IgG & IgM Lyme Progressive Test Lyme Disease DNA (PCR) Cryptococcal Ag Note E. chaffeensis IgG Ab E. chaffeensis IgM Ab E. chaffeensis Interp E. chaffeensis Comment Body Source CSF 08/03/20 08/03/20 08/05/20 13:19 13:19 08:17 WBC RBC Hgb Hct MCV MCH MCHC RDW Plt Count MPV Immature Gran % (Auto) Neut % (Auto) Lymph % (Auto) [place] % (Auto) Eos % (Auto) Baso % (Auto) Lymph # (Auto) [place] # (Auto) Eos # (Auto) Baso # (Auto) Abs Immat Gran (auto) Absolute Neuts (auto) Absolute Nucleated RBC Nucleated RBC % (auto) Sodium 140 Potassium 4.6 Chloride 105 Carbon Dioxide 28 Anion Gap 12 BUN 21 H Creatinine 1.16 Estim Creat Clear Calc 90.0 Estimated GFR > 60 POC Glucose Random Glucose Fasting Glucose 99 Estimat Average Glucose Hemoglobin A1c % Lactic Acid Calcium 9.3 Magnesium 2.4 Total Bilirubin 1.0 Direct Bilirubin 0.3 AST 17 ALT 22 Alkaline Phosphatase 68 Total Protein 7.1 Albumin 4.4 Vitamin B12 Folate TSH 0.79 Free T4 0.95 Fld Lyme DNA (PCR) CSF Tube Number CSF Volume CSF Appearance CSF Color CSF WBC CSF RBC CSF Lymphocytes CSF Monocytes % CSF Appearance (b) CSF Glucose CSF Total Protein CSF VDRL CSF Lyme IgG (Immblot) Cancelled CSF Lyme IgG Bands Det Cancelled CSF Lyme IgM (Immblot) Cancelled CSF Lyme IgM Bands Det Cancelled CSF Cryptococcus Ag CSF Herpes I DNA (PCR) CSF Herpes II DNA (PCR) CSF Mening/Enceph PCR A. phagocytophilum IgG A. phagocytophilum IgM A.phagocytophilum Intrp A. phagocytophilum Cmmt Babesia microti IgG Ab Babesia microti IgM Ab Babesia Interpretation Lyme Screen IgG & IgM Lyme Progressive Test Lyme Disease DNA (PCR) NOT DETECTED Cryptococcal Ag Note E. chaffeensis IgG Ab E. chaffeensis IgM Ab E. chaffeensis Interp E. chaffeensis Comment Body Source 08/05/20 08/05/20 08:17 08:17 WBC RBC Hgb Hct MCV MCH MCHC RDW Plt Count MPV Immature Gran % (Auto) Neut % (Auto) Lymph % (Auto) [place] % (Auto) Eos % (Auto) Baso % (Auto) Lymph # (Auto) [place] # (Auto) Eos # (Auto) Baso # (Auto) Abs Immat Gran (auto) Absolute Neuts (auto) Absolute Nucleated RBC Nucleated RBC % (auto) Sodium Potassium Chloride Carbon Dioxide Anion Gap BUN Creatinine Estim Creat Clear Calc Estimated GFR POC Glucose Random Glucose Fasting Glucose Estimat Average Glucose 111 Hemoglobin A1c % 5.5 Lactic Acid Calcium Magnesium Total Bilirubin Direct Bilirubin AST ALT Alkaline Phosphatase Total Protein Albumin Vitamin B12 318 Folate 12.3 TSH Free T4 Fld Lyme DNA (PCR) CSF Tube Number CSF Volume CSF Appearance CSF Color CSF WBC CSF RBC CSF Lymphocytes CSF Monocytes % CSF Appearance (b) CSF Glucose CSF Total Protein CSF VDRL CSF Lyme IgG (Immblot) CSF Lyme IgG Bands Det CSF Lyme IgM (Immblot) CSF Lyme IgM Bands Det CSF Cryptococcus Ag CSF Herpes I DNA (PCR) CSF Herpes II DNA (PCR) CSF Mening/Enceph PCR A. phagocytophilum IgG A. phagocytophilum IgM A.phagocytophilum Intrp A. phagocytophilum Cmmt Babesia microti IgG Ab Babesia microti IgM Ab Babesia Interpretation Lyme Screen IgG & IgM Lyme Progressive Test Lyme Disease DNA (PCR) Cryptococcal Ag Note E. chaffeensis IgG Ab E. chaffeensis IgM Ab E. chaffeensis Interp E. chaffeensis Comment Body Source 08/03/20 12:25 Blood - Venous Blood Culture - Final No growth after 5 days. 08/03/20 12:33 Blood - Venous Blood Culture - Final No growth after 5 days. 08/03/20 13:19 Cerebrospinal Fluid Gram Stain - Final 08/03/20 13:19 Cerebrospinal Fluid CSF Examination - Final 08/03/20 13:19 Cerebrospinal Fluid Fluid Description - Final 08/03/20 13:19 Cerebrospinal Fluid CSF Culture - Final No growth after 3 days. Imaging Diagnostic Imaging Impressions Head CT 08/02/20 22:03 IMPRESSION: No acute intracranial pathology. Knee X-Ray 08/02/20 22:27 IMPRESSION: No visible acute fracture dislocation. There is mild spurring superior patella. DS: Summary Hospital Course Hospital Course: Mr. Altamirano is a 50 year-old male with hx of MDD and anxiety, apparently no prior hx of psychosis who was brought to [facility] ED after his partner brought him because he has been increasingly more disorganized, paranoid thinking people were after him, that was seeing other men, hearing voices and increasingly more confused. In the ED, his utox was negative. He had extensive medical workup since this is first episode of psychosis including LP which included negative meningitis/encephalitis panel, pending results for VDRL, Herpes. CSF WBC, Lymphocites, all wnl, except for elevated CSF protein (60.8). Head CT unremarkable for acute or chronic findings. Upon further investigation and interview with both pt and his , both report that patient has been using cocaine 4-5 weekly up until 2 weeks ago when disorganization and psychosis started. On the unit, Mr. Altamirano presents as much more organized and much less psychotic. Pt reports two weeks ago he became very confused, paranoid, thinking was t alking with several men right in front of him, suspicious about everyone to the point that he decided to leave home and walk aimlessly without shoes. He reports he is glad he got help. He reports sleeping and eating well. He reports feeling very worried and scared about recent episode of psychosis. He adamantly denies suicidal or homicidal ideation. He reports last day he heard voices was day prio r to coming to unit. Past Psychiatric History: Inpatient: none prior OP: [facility]- Dr. Ella Muñoz, Therapist Ashu Past Trial: clonazepam, ambien, [facility] COURSE On the unit, Mr. Altamirano presented as paranoid towards GF, thinking that she was letting suspicious people get into their apartment, maybe having an affair and dealing with drugs. He was hypervigilant. However, pt denied suicidal or homicidal ideation. He reported seeing some shadows. After discussing risks, benefits and alternative treatment options, he agreed to start risperidone. He tolerated this medication well and was titrated to 1mg po daily and 2mg po qhs. His affect gradually presented as much less fearful, less suspicious. His thought process was more organized and coherent. He showed increased insight and question some of her paranoid delusions. He notes his use of cocaine and understands this substance can worsened symptoms of psychosis and paranoid. There were no incidences of disruptive behaviors nor use of restraints. Collateral information gathered from daughter who denies safety concerns at time of discharge and reports pt appears in much improved condition. Status at Discharge Cognitive/behavioral status at discharge: Pt much less paranoid, no SI/HI. More coherent and logical conversation. Future oriented. Functional status at discharge: independent ambulation Overall status at discharge: patient is progressing back to baseline Time Spent with Patient Time attestation: Total time spent providing and/or coordinating discharge services: Time spent: Greater than 30 minutes Discharge Plan Discharge Patient Disposition: Home, Self-Care Discharge Diagnosis: Substance induced psychosis Referrals: Therapist: Ashu Chavez ([facility]) [Other] - 08/13/20 11:15 am (Telehealth ) Psych Prescriber: Rosy Olivera ([facility]) [Other] - 09/08/20 2:40 pm (Telehealth ) Katlin Casper NP [Nurse Practitioner] - 08/16/20 3:00 pm (VIA PHONE DR. DEYA GONZALEZ COVERING) Discharge Medications: New atorvastatin 40 mg Tablet 40 mg PO DAILY Qty: 30 RF: 0 escitalopram oxalate 10 mg Tablet 10 mg PO BEDTIME Qty: 30 RF: 0 trazodone 50 mg Tablet 50 mg PO BEDTIME PRN (Reason: Insomnia) Qty: 30 RF: 0 risperidone 2 mg Tablet 2 mg PO BEDTIME Qty: 30 RF: 0 famotidine 20 mg Tablet 40 mg PO BID PRN (Reason: heartburn) Qty: 60 RF: 0 ibuprofen 600 mg Tablet 600 mg PO Q8H PRN (Reason: Pain, Severe (Pain Scale 7-10)) Qty: 30 RF: 0 Continued allopurinol 100 mg tablet 1 tab PO DAILY RF: 0 diltiazem HCl [Tiadylt ER] 120 mg capsule,extended release 24 hr 1 cap PO DAILY RF: 0 albuterol sulfate 90 mcg/actuation HFA aerosol inhaler 2 puff inhalation Q4-6H PRN (Reason: wheezing) RF: 0 losartan 100 mg tablet 1 tab PO DAILY RF: 0 Discontinued atorvastatin 40 mg tablet 1 tab PO DAILY RF: 0 famotidine 40 mg tablet 1 tab PO BID PRN (Reason: heartburn) RF: 0 clonazepam 0.5 mg tablet 1 tab PO DAILY PRN (Reason: anxiety attack) RF: 0 oxycodone-acetaminophen 5-325 mg tablet 1 tab PO TID PRN (Reason: pain) RF: 0 hydroxyzine HCl 25 mg tablet 1 - 2 tab PO TID PRN (Reason: anxiety) RF: 0 zolpidem 10 mg tablet 1 tab PO BEDTIME PRN (Reason: insomnia) RF: 0 escitalopram oxalate [Lexapro] 10 mg tablet 1 tab PO BEDTIME RF: 0 Discharge Orders: Discharge Order (Routine); Ordered 08/10/20 Ordered By: Leslie Kumar Diet: regular diet Activity on Discharge: As tolerated Stand Alone Forms: Patient Portal Discharge page, Community Support Care Plan Goals: 1. Maintain mood 2. No SI/HI Health Concerns: follow up with PCP Plan of Treatment: 1. take medications as prescribed 2. Go to nearest ED or call 911 in event of emergency Assessment: No VH/AH. Much less paranoid delusions. No SI/HI. Discharge Date/Time: 08/10/20 12:00
[2020-08-23 19:05] LABS: A. Phagocytophilum Ab IgG <1:64 (<1:64); A. Phagocytophilum Ab IgM <1:20 (<1:20); E. Chaffeensis Ab IgG <1:64 (<1:64); E. Chaffeensis Ab IgM <1:20 (<1:20)
== END 2020-08-10 12:00 | disposition home or self-care (01) | DRG 774 ==
LOC: HO.ED 08-04 01:23 → HO.PM5 08-04 01:26
PROVIDERS: Nurse Practitioner Family; Admitting Provider Clinical Nurse Specialist Psychiatric/Mental Health; Emergency Provider Emergency Medicine Emergency Medical Services; Visit Provider Social Worker
DX: F14.259 Cocaine dependence with cocaine-induced psychotic disorder, unspecified (principal); F19.950 Other psychoactive substance use, unspecified with psychoactive substance-induced psychotic disorder with delusions; E86.0 Dehydration; Z79.1 Long term (current) use of non-steroidal anti-inflammatories (NSAID); Z79.899 Other long term (current) drug therapy
CPT/HCPCS: 36415; 70450; 73562; 80048; 80053; 80076; 80307; 81003; 82077; 82607; 82746; 82945; 82947; 83036; 83605; 83735; 84157; 84439; 84443; 85025; 86403; 86592; 86617; 86618; 86666; 86753; 87015; 87040; 87070; 87205; 87476; 87529; 89051; 93005; 99284

== ENCOUNTER 2021-09-06 18:46 | Inpatient (IN) | payer OTHER, SELFPAY ==
[2021-09-06 19:07] VITALS: BP 210/148; PULSE 120; O2SAT 97
[2021-09-06 19:18] VITALS: BP 141/98; PULSE 117; RESP 14; TEMP 37.4; O2SAT 97; BMI 36.5
[2021-09-06 19:22] VITALS: BP 141/98; PULSE 117; RESP 14; TEMP 37.4; O2SAT 97
--- NOTE | 2021-09-06 19:37 | ED_ITS ---
HPI - Psych General Chief Complaint: Psychiatric Symptoms Stated Complaint: Section 12 Time Seen by Provider: 09/06/21 19:37 Source: patient Mode of arrival: EMS Limitations: no limitations History of Present Illness HPI Narrative: Patient with history of schizophrenia Section 12 by PD as patient was having delusions of his cheating on him. Patient does have history of hypertension, diabetes on arrival patient's blood pressure was 141/98 pulse rate 117 patient missed his blood pressure medicine for last 2 days Related Data Home Medications Medication Instructions Recorded Confirmed albuterol sulfate 90 mcg/actuation 2 puff inhalation Q4-6H PRN 08/03/20 09/06/21 aerosol inhaler wheezing allopurinol 100 mg tablet 1 tab PO DAILY 09/06/21 09/06/21 atorvastatin 40 mg tablet 1 tab PO DAILY 09/06/21 09/06/21 clonazepam 1 mg tablet 1 tab PO DAILY PRN insomnia 09/06/21 09/06/21 diltiazem HCl 120 mg capsule,24 1 cap PO DAILY 09/06/21 09/06/21 hr,extended release (Tiadylt ER) escitalopram oxalate 10 mg tablet 1 tab PO BEDTIME 09/06/21 09/06/21 (Lexapro) famotidine 40 mg tablet 1 tab PO BID PRN heartburn 09/06/21 09/06/21 losartan 100 mg tablet 1 tab PO DAILY 09/06/21 09/06/21 risperidone 0.5 mg tablet 1 tab PO QPM 09/06/21 09/06/21 (Risperdal) risperidone 2 mg tablet 1 tab PO BEDTIME 09/06/21 09/06/21 Previous Rx's Medication Instructions Recorded ibuprofen 600 mg tablet 600 mg PO Q8H PRN Pain, Severe 08/10/20 (Pain Scale 7-10) #30 tabs Allergies Allergy/AdvReac Type Severity Reaction Status Date / Time No Known Allergies Allergy Verified 08/02/20 17:33 [No Known Allergies*] Review of Systems Review of Systems: Yes all other systems are reviewed and are negative PMFSH Past Medical History Medical History Back pain Depression Diabetes High cholesterol HTN (hypertension) Hypoglycemia Social History Social History Household Members: Family Household Members Other:: 2 daughters and 1 son Housing: Apartment Do you presently have visiting nurse or other home services: No Alcohol intake: never Patient Tobacco Use Status: Never used Tobacco Use of substances other than those prescribed or required for medical reasons: No Advance Directives: No Advance Directives Information Provided: No service: No Sexual orientation: Straight/Heterosexual Physical Exam Vital Signs: Vital Signs: Last Vital Signs Temp 99.3 F 09/06/21 19:22 Pulse 117 H 09/06/21 19:22 Resp 14 09/06/21 19:22 BP 141/98 H 09/06/21 19:22 Pulse Ox 97 09/06/21 19:22 O2 Del Method 09/06/21 19:22 BMI result Body Mass Index 36.5 Appearance: Alert. Oriented X3. No acute distress. Eyes: PERRLA, No Nystagmus ENT: Pharynx normal. Oral Mucosa moist Neck: Normal inspection. Neck supple. CVS: Normal heart rate and rhythm. Pulses normal. Respiratory: No respiratory distress. Equal air entry bilateral, no wheezing/rales/rhonchi Abdomen: Soft and nontender. Bowel sounds are present, no mass palpable, no CVA tenderness Skin: Skin warm and dry. Normal skin color. Normal skin turgor. Extremities: No lower extremity edema. No calf tenderness psych: Delusional mood stable no suicidal ideation Neuro: Oriented X 3. No motor deficit. No sensory deficit.No cerebellar signs , cranial nerves II-XII intact MDM - Psych MDM Narrative Medical decision making narrative: Patient with schizophrenia with hallucinations/ delusions to be seen by crisis urine drug screen positive for cocaine Lab Data Attestation: I reviewed the patient's lab results. Result diagrams: 09/06/21 19:57 09/06/21 19:57 Labs: Lab Results 09/06/21 09/06/21 09/06/21 Range/Units 19:57 19:57 19:57 WBC 12.4 H (4.8-10.8) X10*3/uL RBC 5.65 (4.60-5.80) X10*6/uL Hgb 15.9 (14.0-18.0) g/dl Hct 47.0 (42.0-52.0) % MCV 83.2 (80.0-98.0) fL MCH 28.1 (27.0-33.0) pg MCHC 33.8 (31.0-36.0) g/dl RDW 13.5 (11.0-16.0) % Plt Count 290 (160-400) X10*3/uL MPV 10.1 (9.4-12.4) fL Immature Gran % (Auto) 0.6 H (0.0-0.4) % Neut % (Auto) 72.0 (45-73) % Lymph % (Auto) 21.1 (20-40) % [place] % (Auto) 5.5 (2-11) % Eos % (Auto) 0.3 (0-4) % Baso % (Auto) 0.5 (0-2) % Lymph # (Auto) 2.6 (1.2-4.9) X10*3/uL [place] # (Auto) 0.7 (0.1-1.2) X10*3/uL Eos # (Auto) 0.0 (0.0-0.4) X10*3/uL Baso # (Auto) 0.1 (0.0-0.2) X10*3/uL Abs Immat Gran (auto) 0.07 H (0.00-0.03) X10*3/uL Absolute Neuts (auto) 9.0 H (2.0-8.3) x10*3/uL Absolute Nucleated RBC 0.000 (0.0-0.012) X10*3/uL Nucleated RBC % (auto) 0.0 (0.0-0.2) /100WBC Sodium 140 (135-145) mmol/L Potassium 3.7 (3.3-5.1) mmol/L Chloride 102 (96-108) mmol/L Carbon Dioxide 26 (22-29) mmol/L Anion Gap 16 (12-20) BUN 12 (9-16) mg/dL Creatinine 1.25 (0.5-1.4) mg/dL Estim Creat Clear Calc 82.7 Estimated GFR > 60 Random Glucose 136 H (60-115) mg/dL Calcium 9.6 (8.4-10.2) mg/dL Magnesium 2.1 (1.6-2.6) mg/dL Total Bilirubin 0.9 (0.0-1.0) mg/dL AST 16 (5-37) U/L ALT 23 (0-40) U/L Alkaline Phosphatase 77 (39-117) U/L Total Protein 8.2 H (6.5-8.0) g/dL Albumin 5.0 (3.5-5.0) g/dL Urine Opiates Screen (Not Detect) Urine Fentanyl Screen (Not Detect) Ur Barbiturates Screen (Not Detect) Ur Phencyclidine Scrn (Not Detect) Ur Amphetamines Screen (Not Detect) U Benzodiazepines Scrn (Not Detect) Urine Cocaine Screen (Not Detect) U Marijuana (THC) Screen (Not Detect) COVID-19 (MAGI) Negative (Negative) COVID-19 Clin Com See Note 09/06/21 Range/Units 19:57 WBC (4.8-10.8) X10*3/uL RBC (4.60-5.80) X10*6/uL Hgb (14.0-18.0) g/dl Hct (42.0-52.0) % MCV (80.0-98.0) fL MCH (27.0-33.0) pg MCHC (31.0-36.0) g/dl RDW (11.0-16.0) % Plt Count (160-400) X10*3/uL MPV (9.4-12.4) fL Immature Gran % (Auto) (0.0-0.4) % Neut % (Auto) (45-73) % Lymph % (Auto) (20-40) % [place] % (Auto) (2-11) % Eos % (Auto) (0-4) % Baso % (Auto) (0-2) % Lymph # (Auto) (1.2-4.9) X10*3/uL [place] # (Auto) (0.1-1.2) X10*3/uL Eos # (Auto) (0.0-0.4) X10*3/uL Baso # (Auto) (0.0-0.2) X10*3/uL Abs Immat Gran (auto) (0.00-0.03) X10*3/uL Absolute Neuts (auto) (2.0-8.3) x10*3/uL Absolute Nucleated RBC (0.0-0.012) X10*3/uL Nucleated RBC % (auto) (0.0-0.2) /100WBC Sodium (135-145) mmol/L Potassium (3.3-5.1) mmol/L Chloride (96-108) mmol/L Carbon Dioxide (22-29) mmol/L Anion Gap (12-20) BUN (9-16) mg/dL Creatinine (0.5-1.4) mg/dL Estim Creat Clear Calc Estimated GFR Random Glucose (60-115) mg/dL Calcium (8.4-10.2) mg/dL Magnesium (1.6-2.6) mg/dL Total Bilirubin (0.0-1.0) mg/dL AST (5-37) U/L ALT (0-40) U/L Alkaline Phosphatase (39-117) U/L Total Protein (6.5-8.0) g/dL Albumin (3.5-5.0) g/dL Urine Opiates Screen Not Detected (Not Detect) Urine Fentanyl Screen Not Detected (Not Detect) Ur Barbiturates Screen Not Detected (Not Detect) Ur Phencyclidine Scrn Not Detected (Not Detect) Ur Amphetamines Screen Not Detected (Not Detect) U Benzodiazepines Scrn Not Detected (Not Detect) Urine Cocaine Screen POSITIVE H (Not Detect) U Marijuana (THC) Screen Not Detected (Not Detect) COVID-19 (MAGI) (Negative) COVID-19 Clin Com Discharge Plan Discharge Clinical Impression: Chronic schizophrenia, Cocaine abuse Patient Disposition: Still a Patient Prescriptions: No Action albuterol sulfate 90 mcg/actuation HFA aerosol inhaler 2 puff inhalation Q4-6H PRN (Reason: wheezing) ibuprofen 600 mg Tablet 600 mg PO Q8H PRN (Reason: Pain, Severe (Pain Scale 7-10)) Qty: 30 0RF famotidine 40 mg tablet 1 tab PO BID PRN (Reason: heartburn) clonazepam 1 mg tablet 1 tab PO DAILY PRN (Reason: insomnia) risperidone 2 mg tablet 1 tab PO BEDTIME risperidone [Risperdal] 0.5 mg tablet 1 tab PO QPM escitalopram oxalate [Lexapro] 10 mg tablet 1 tab PO BEDTIME atorvastatin 40 mg tablet 1 tab PO DAILY allopurinol 100 mg tablet 1 tab PO DAILY diltiazem HCl [Tiadylt ER] 120 mg capsule,extended release 24 hr 1 cap PO DAILY losartan 100 mg tablet 1 tab PO DAILY
--- NOTE | 2021-09-06 19:44 | ECG_ITS ---
Test Reason : ETOH Blood Pressure : / mmHG Vent. Rate : 095 BPM Atrial Rate : 095 BPM P-R Int : 142 ms QRS Dur : 158 ms QT Int : 420 ms P-R-T Axes : 048 003 -02 degrees QTc Int : 527 ms Normal sinus rhythm Right bundle branch block Abnormal ECG When compared with ECG of 02-AUG-2020 17:59, No significant change was found Referred By: Eddie Dhillon Electronically Signed By:KONRAD RAMIREZ MD
[2021-09-06] MEDS: Losartan Potassium 50 MG TABLET PO (19:50)
[2021-09-06 20:05] LABS: MANUAL DIFF FLAG NO
[2021-09-06 20:10] LABS: Basophils Absolute Auto 0.1 X10*3/uL (0.0-0.2); Basophils Percent Auto 0.5 % (0-2); Eosinophils Percent Auto 0.3 % (0-4); Hemoglobin 15.9 g/dl (14.0-18.0); Imm Gran Abs Auto 0.07 X10*3/uL (0.00-0.03); Imm Gran Pct Auto 0.6 % (0.0-0.4); Lymphocytes Absolute Auto 2.6 X10*3/uL (1.2-4.9); Lymphocytes Percent Auto 21.1 % (20-40); Mean Corpuscular HGB Conc 33.8 g/dl (31.0-36.0); Mean Corpuscular Hemoglobin 28.1 pg (27.0-33.0); Mean Corpuscular Volume 83.2 fL (80.0-98.0); Mean Platelet Volume 10.1 fL (9.4-12.4); Monocytes Absolute Auto 0.7 X10*3/uL (0.1-1.2); Monocytes Percent Auto 5.5 % (2-11); Platelet Count 290 X10*3/uL (160-400); Red Blood Count 5.65 X10*6/uL (4.60-5.80); Red Cell Distribution Width 13.5 % (11.0-16.0); White Blood Count 12.4 X10*3/uL (4.8-10.8)
[2021-09-06 20:23] LABS: Alanine Aminotransferase 23 U/L (0-40); Alkaline Phosphatase 77 U/L (39-117); Anion Gap 16 (12-20); Aspartate Amino Transferase 16 U/L (5-37); Bilirubin Total 0.9 mg/dL (0.0-1.0); Blood Urea Nitrogen 12 mg/dL (9-16); Calcium 9.6 mg/dL (8.4-10.2); Carbon Dioxide 26 mmol/L (22-29); Chloride 102 mmol/L (96-108); Creatinine Clr Calc Pharmacy 82.7; Estimated Glomerular Filt Rate > 60; Glucose Random 136 mg/dL (60-115); Magnesium 2.1 mg/dL (1.6-2.6); Potassium 3.7 mmol/L (3.3-5.1); Sodium 140 mmol/L (135-145); Total Protein 8.2 g/dL (6.5-8.0)
[2021-09-06 20:28] LABS: COVID-19 Test Negative (Negative)
[2021-09-06 20:32] LABS: Amphetamine Screen Urine Not Detected (Not Detect); Barbiturates, Urine Not Detected (Not Detect); Benzodiazepines Screen Urine Not Detected (Not Detect); Cannabinoid Screen Urine Not Detected (Not Detect); Cocaine Screen Urine POSITIVE (Not Detect); Fentanyl, urine Not Detected (Not Detect); Opiate Screen Urine Not Detected (Not Detect); Phencyclidine Screen Urine Not Detected (Not Detect)
[2021-09-07 06:18] VITALS: BP 106/68; PULSE 67; RESP 16; TEMP 36.2; O2SAT 97
--- NOTE | 2021-09-07 07:08 | PC.NURSE ---
patient appears to remain asleep at present respirations are even and unlabored patient appears in no distress
--- NOTE | 2021-09-07 07:11 | PC.NURSE ---
Patient slept through the night, no distress observed/reported, disposition per N from community is section 12 inpatient bed search, med rec completed/pending provider's approval, Wol[place] speaking primarily, behavior non concerning, VSS, will continue to monitor.
[2021-09-07] MEDS: dilTIAZem HCL CD 120 MG CAP.ER.DEG PO (10:33)
[2021-09-07] MEDS: Atorvastatin Calcium 40 MG TABLET PO (10:34)
[2021-09-07] MEDS: allopurinoL 100 MG TABLET PO (10:35)
[2021-09-07] MEDS: Losartan Potassium 50 MG TABLET 100 MG PO (10:35)
[2021-09-07] MEDS: Famotidine 20 MG TABLET 40 MG PO (10:48)
[2021-09-07 11:18] VITALS: BP 130/92; PULSE 90; RESP 16; TEMP 36.7; O2SAT 99
--- NOTE | 2021-09-07 13:16 | PHA.MEDREC ---
Pharmacy Consult ? Medication Reconciliation RNhas completed the medication reconciliation, pharmacy reviewed.
[2021-09-07 15:40] VITALS: BP 113/70; PULSE 91; RESP 16; TEMP 36.3; O2SAT 97
--- NOTE | 2021-09-07 18:17 | PC.NURSE ---
Pt is a COVID-negative male who presented to [facility] ED with symptoms of psychosis, perseverating on belief girlfriend is cheating on him. Pt is A&O, INAD, pleasant and cooperative, tangential during assessment. Pt reports AH increase at night when it is quiet. Pt denies safety concerns, SI/HI. MedHx: Apnea, RBBB, arthritis. PsycheHx: Unspecified schizophrenia spectrum disorder and other psychotic disorder.
[2021-09-07] MEDS: hydrOXYzine HCL 25 MG TABLET PO (20:38)
[2021-09-07] MEDS: risperiDONE 2 MG TABLET PO (20:38)
[2021-09-07] MEDS: clonazePAM 1 MG TABLET PO (20:39)
[2021-09-07] MEDS: risperiDONE 0.5 MG TABLET PO (20:39)
[2021-09-07 20:48] LABS: Glucose, Whole Blood 121 mg/dL (60-115)
--- NOTE | 2021-09-08 | ECG_ITS ---
Test Reason : qtc check Blood Pressure : / mmHG Vent. Rate : 095 BPM Atrial Rate : 095 BPM P-R Int : 130 ms QRS Dur : 144 ms QT Int : 442 ms P-R-T Axes : 064 033 012 degrees QTc Int : 555 ms Normal sinus rhythm Right bundle branch block Abnormal ECG When compared with ECG of 06-SEP-2021 20:07, No significant change was found Referred By: Leslie Kumar Electronically Signed By:KONRAD RAMIREZ MD
[2021-09-08 09:11] LABS: Estimated Average Glucose 108 mg/dL; Hemoglobin A1c % 5.4 %
--- NOTE | 2021-09-08 09:23 | HO.PSYADMNOT ---
HPI Date of Service: 09/08/21 Chief Complaint: SI Psychosis Sources of Information: patient interviewed, chart reviewed and crisis/core team assessment reviewed HPI Subjective Notes: Conditional Voluntary Narrative: Mr. Altamirano is a 51 year-old male with hx of paranoia in setting of cocaine use. He was brought via EMS to [facility] ED after girlfriend called crisis reporting increase paranoia, bizarre behavior. His utox in the ED positive for cocaine. Pt had one admission last year with similar presentation including paranoid about his girlfriend having affair with someone else. On the unit, Mr. Altamirano presents as pleasant. He reports that his girlfriend was acting in unusual ways including the way she was eating and music she was hearing which for him was a clue that she was seeing other men. He reports he saw text messages but couldn't show them to anyone because he suspects she deleted them. He denies SI/HI. He reports sleeping well. He reports usual appetite. He reports at times hearing 's voice talking with others but couldn't see . Past Psychiatric History: Inpatient: none prior OP: [facility]- Dr. Ella Muñoz, Therapist [facility] Past Trial: clonazepam, ambien, lexapro Medical Evaluation Reviewed: Yes [facility] Medical History Back pain Depression Diabetes High cholesterol HTN (hypertension) Hypoglycemia Family History: none Social History: Pt . He has 3 adult children who are close to him. He is currently not working due disability due to anxiety/depression. He has partner of 4 years. 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 Substance History: cocaine on and off since age 16. last use 3 days prior to admission. Trauma History: denies Diagnostics Vital Signs (24Hr): Vital Signs - 24 hr 09/07/21 11:18 09/07/21 15:40 Temperature 98.0 F 97.4 F Pulse Rate 90 91 Respiratory Rate 16 16 Blood Pressure 130/92 H 113/70 Pulse Oximetry 99 97 Oxygen Delivery Method Room Air Room Air BMI result Body Mass Index 36.5 Labs Results: 09/06/21 19:57 09/08/21 08:39 Labs: Laboratory Results - last 48 hr 09/06/21 09/06/21 09/06/21 19:57 19:57 19:57 WBC 12.4 H RBC 5.65 Hgb 15.9 Hct 47.0 MCV 83.2 MCH 28.1 MCHC 33.8 RDW 13.5 Plt Count 290 MPV 10.1 Immature Gran % (Auto) 0.6 H Neut % (Auto) 72.0 Lymph % (Auto) 21.1 [place] % (Auto) 5.5 Eos % (Auto) 0.3 Baso % (Auto) 0.5 Lymph # (Auto) 2.6 [place] # (Auto) 0.7 Eos # (Auto) 0.0 Baso # (Auto) 0.1 Abs Immat Gran (auto) 0.07 H Absolute Neuts (auto) 9.0 H Absolute Nucleated RBC 0.000 Nucleated RBC % (auto) 0.0 Sodium 140 Potassium 3.7 Chloride 102 Carbon Dioxide 26 Anion Gap 16 BUN 12 Creatinine 1.25 Estim Creat Clear Calc 82.7 Estimated GFR > 60 POC Glucose Random Glucose 136 H Estimat Average Glucose Hemoglobin A1c % Calcium 9.6 Magnesium 2.1 Total Bilirubin 0.9 AST 16 ALT 23 Alkaline Phosphatase 77 Total Protein 8.2 H Albumin 5.0 Urine Opiates Screen Urine Fentanyl Screen Ur Barbiturates Screen Ur Phencyclidine Scrn Ur Amphetamines Screen U Benzodiazepines Scrn Urine Cocaine Screen U Marijuana (THC) Screen COVID-19 (MAGI) Negative COVID-19 Clin Com See Note 09/06/21 09/07/21 09/08/21 19:57 20:42 08:39 WBC RBC Hgb Hct MCV MCH MCHC RDW Plt Count MPV Immature Gran % (Auto) Neut % (Auto) Lymph % (Auto) [place] % (Auto) Eos % (Auto) Baso % (Auto) Lymph # (Auto) [place] # (Auto) Eos # (Auto) Baso # (Auto) Abs Immat Gran (auto) Absolute Neuts (auto) Absolute Nucleated RBC Nucleated RBC % (auto) Sodium Potassium Chloride Carbon Dioxide Anion Gap BUN Creatinine Estim Creat Clear Calc Estimated GFR POC Glucose 121 H Random Glucose Estimat Average Glucose 108 Hemoglobin A1c % 5.4 Calcium Magnesium Total Bilirubin AST ALT Alkaline Phosphatase Total Protein Albumin Urine Opiates Screen Not Detected Urine Fentanyl Screen Not Detected Ur Barbiturates Screen Not Detected Ur Phencyclidine Scrn Not Detected Ur Amphetamines Screen Not Detected U Benzodiazepines Scrn Not Detected Urine Cocaine Screen POSITIVE H U Marijuana (THC) Screen Not Detected COVID-19 (MAGI) COVID-19 Clin Com Meds/Allergies Meds Home Medications Medication Instructions Recorded Confirmed Type albuterol sulfate 90 mcg/actuation 2 puff inhalation Q4-6H PRN 08/03/20 09/06/21 History aerosol inhaler wheezing allopurinol 100 mg tablet 1 tab PO DAILY 09/06/21 09/06/21 History atorvastatin 40 mg tablet 1 tab PO DAILY 09/06/21 09/06/21 History clonazepam 1 mg tablet 1 tab PO DAILY PRN insomnia 09/06/21 09/06/21 History diltiazem HCl 120 mg capsule,24 1 cap PO DAILY 09/06/21 09/06/21 History hr,extended release (Tiadylt ER) escitalopram oxalate 10 mg tablet 1 tab PO BEDTIME 09/06/21 09/06/21 History (Lexapro) famotidine 40 mg tablet 1 tab PO BID PRN heartburn 09/06/21 09/06/21 History losartan 100 mg tablet 1 tab PO DAILY 09/06/21 09/06/21 History risperidone 0.5 mg tablet 1 tab PO QPM 09/06/21 09/06/21 History (Risperdal) risperidone 2 mg tablet 1 tab PO BEDTIME 09/06/21 09/06/21 History Allergies Allergies Allergy/AdvReac Type Severity Reaction Status Date / Time No Known Allergies Allergy Verified 08/02/20 17:33 [No Known Allergies*] Mental Status Exam Mental Status Exam Narrative: Appearance: casually groomed, fair hygiene in NAD Behavior:cooperative psychomotor: no agitation or retardation noted Speech:clear, normal rate/rhythm/volume, spontaneous Thought process:linear Thought content:paranoia about girlfriend having affairs Mood: fine Affect: congruent SI:none HI:none VH/AH:+AH of voice when she is not present Delusions:delusions related to GF having affairs Insight/judgment:fair x 2. Memory/cog: alert, oriented x 3. grossly intact to conversational testing. Assessment & Plan Assessment & Plan (1) Substance-induced psychotic disorder with delusions: Status: Acute Code(s): F19.950 - Other psychoactive substance use, unspecified with psychoactive substance-induced psychotic disorder with delusions Plan Mr. Altamirano is a 51 year-old male who had his first psychotic episode last year in setting of cocaine use. He presents with same delusions of thinking that his GF is having affairs with men and he knows this based on way she is eating and music she is hearing. He also finds suspicious that she asks to sleep with him at night. His utox positive for cocaine. We discussed risks, benefits and alternative treatment options. He agreed to continue risperidone. Hold lexapro one due to psychosis (antidepressant can worsen) and two due to prolonged Qtc (will consult with cardiology). PLAN 1. Admit to M3, cv 15 minutes checks, 2. continue risperidone 3. monitor EKG due to prolonged Qtc with right block 4. Obtain collateral information 5. Aftercare planning. Patient educated on: diagnosis Reason for continued inpatient stay Substantial Risk for: inability to function
[2021-09-08 09:40] LABS: Alanine Aminotransferase 15 U/L (0-40); Alkaline Phosphatase 68 U/L (39-117); Anion Gap 15 (12-20); Aspartate Amino Transferase 9 U/L (5-37); Blood Urea Nitrogen 26 mg/dL (9-16); Calcium 9.4 mg/dL (8.4-10.2); Carbon Dioxide 27 mmol/L (22-29); Chloride 103 mmol/L (96-108); Cholesterol 218 mg/dL; Creatinine Clr Calc Pharmacy 53.8; Estimated Glomerular Filt Rate 37; Glucose Fasting 102 mg/dL (60-99); HDL Cholesterol 32 mg/dL; LDL Cholesterol Calculated 143 mg/dl; Potassium 4.2 mmol/L (3.3-5.1); Sodium 141 mmol/L (135-145); Total Protein 6.4 g/dL (6.5-8.0); Triglycerides 218 mg/dL
[2021-09-08 10:01] LABS: Thyroid Stimulating Hormone 1.42 uIU/mL (0.32-4.0)
[2021-09-08 10:30] VITALS: BP 121/77; PULSE 94; RESP 17; TEMP 36.2; O2SAT 99
[2021-09-08] MEDS: Losartan Potassium 50 MG TABLET 100 MG PO (10:38)
[2021-09-08] MEDS: allopurinoL 100 MG TABLET PO (10:38)
[2021-09-08] MEDS: dilTIAZem HCL CD 120 MG CAP.ER.DEG PO (10:39)
[2021-09-08] MEDS: Atorvastatin Calcium 40 MG TABLET PO (10:39)
[2021-09-08 10:46] LABS: Glucose, Whole Blood 96 mg/dL (60-115)
[2021-09-08 10:55] LABS: Vitamin B12 337 pg/mL (200-900)
[2021-09-08] MEDS: Ibuprofen 600 MG TABLET PO ×2 (12:14→20:48)
[2021-09-08 18:00] VITALS: BP 110/61; PULSE 98; RESP 16; TEMP 36.2; O2SAT 96
[2021-09-08] MEDS: risperiDONE 0.5 MG TABLET PO (20:41)
[2021-09-08] MEDS: risperiDONE 2 MG TABLET PO (20:41)
[2021-09-08] MEDS: clonazePAM 1 MG TABLET PO (20:48)
[2021-09-08] MEDS: Famotidine 20 MG TABLET 40 MG PO (20:48)
[2021-09-09 00:30] VITALS: PULSE 89; O2SAT 96
[2021-09-09 08:08] VITALS: BP 116/67; PULSE 72; TEMP 36.6; O2SAT 97
[2021-09-09] MEDS: dilTIAZem HCL CD 120 MG CAP.ER.DEG PO (08:10)
[2021-09-09] MEDS: Atorvastatin Calcium 40 MG TABLET PO (08:10)
[2021-09-09] MEDS: Losartan Potassium 50 MG TABLET 100 MG PO (08:11)
[2021-09-09] MEDS: allopurinoL 100 MG TABLET PO (08:11)
--- NOTE | 2021-09-09 12:27 | HO.PSYCHPN ---
Subjective Subjective Date of Service: 09/09/21 Reason For Visit: SI Psychosis Subjective Notes: Conditional Voluntary and 3 Day Interim History: Pt presents as pleasant. He reports he feels less worried about GF having other men. He reports he spoke with GF and things are better between them. No SI/HI. He wants to be discharged as soon as possible. Pt has Qtc prolongation with RBBB (prolonged QRS)- per bellows tester, Dr. Jara, as long as calculated JT prolongation is less than 112msec, is fine to continue qtc prolongation meds such as antipsychotic risperidone. Currently his JT is 112msec- will keep risperidone at 2mg po qhs. no lexaprol or other qtc prolonging agents at this time. Medication Compliance: Yes Review of Systems Review of Systems Yes all other systems are reviewed and are negative Constitutional: Reports no additional constitutional complaints Mental Status Exam Mental Status Exam Narrative: Appearance: casually groomed, fair hygiene in NAD Behavior:cooperative psychomotor: no agitation or retardation noted Speech:clear, normal rate/rhythm/volume, spontaneous Thought process:linear Thought content:paranoia about girlfriend having affairs Mood: fine Affect: congruent SI:none HI:none VH/AH:+AH of voice when she is not present Delusions:delusions related to GF having affairs Insight/judgment:fair x 2. Memory/cog: alert, oriented x 3. grossly intact to conversational testing. Diagnostics Vital Signs (24Hr): Vital Signs - 24 hr 09/09/21 21:50 Temperature 97.2 F Pulse Rate 94 Respiratory Rate 18 Blood Pressure 149/94 H Pulse Oximetry 98 Oxygen Delivery Method Room Air BMI result Body Mass Index 36.5 Labs Results: 09/06/21 19:57 09/08/21 08:39 Labs: Laboratory Results - last 48 hr 09/08/21 09/08/21 09/08/21 08:39 08:39 08:39 Sodium 141 Potassium 4.2 Chloride 103 Carbon Dioxide 27 Anion Gap 15 BUN 26 H D Creatinine 1.92 H Estim Creat Clear Calc 53.8 Estimated GFR 37 POC Glucose Fasting Glucose 102 H Estimat Average Glucose 108 Hemoglobin A1c % 5.4 Calcium 9.4 Total Bilirubin 1.0 AST 9 D ALT 15 Alkaline Phosphatase 68 Total Protein 6.4 L D Albumin 4.0 Triglycerides 218 Cholesterol 218 LDL Cholesterol, Calc 143 HDL Cholesterol 32 Vitamin B12 337 TSH 1.42 08/04/22 10:37 Sodium Potassium Chloride Carbon Dioxide Anion Gap BUN Creatinine Estim Creat Clear Calc Estimated GFR POC Glucose 96 Fasting Glucose Estimat Average Glucose Hemoglobin A1c % Calcium Total Bilirubin AST ALT Alkaline Phosphatase Total Protein Albumin Triglycerides Cholesterol LDL Cholesterol, Calc HDL Cholesterol Vitamin B12 TSH Medications Medications Current Medications Acetaminophen (Acetaminophen 325 Mg Tablet) 650 mg PO Q6H PRN PRN Reason: Headache/Pain Mild Scale (1-3) Al Hydroxide/Mg Hydroxide (Magnesium Hydrox/Alum Hydrox 30 Ml Oral.Susp) 30 ml PO Q6H PRN PRN Reason: Heartburn/Nausea Albuterol Sulfate (Albuterol Sulfate 90 Mcg 8 Gm Inhaler) 2 puff INHALE Q4H PRN PRN Reason: wheezing Allopurinol (Allopurinol 100 Mg Tablet) 100 mg PO DAILY [facility] Last Admin: 09/09/21 08:11 Dose: 100 mg Atorvastatin Calcium (Atorvastatin Calcium 40 Mg Tablet) 40 mg PO DAILY [facility] Last Admin: 09/09/21 08:10 Dose: 40 mg Clonazepam (Clonazepam 1 Mg Tablet) 1 mg PO DAILY PRN PRN Reason: insomnia Last Admin: 09/10/21 02:58 Dose: 1 mg Diltiazem HCl (Diltiazem Hcl Cd 120 Mg Cap.Er.Deg) 120 mg PO DAILY [facility]; Protocol Last Admin: 09/09/21 08:10 Dose: 120 mg Famotidine (Famotidine 20 Mg Tablet) 40 mg PO BID PRN PRN Reason: heartburn Last Admin: 09/09/21 18:16 Dose: 40 mg Hydroxyzine HCl (Hydroxyzine Hcl 25 Mg Tablet) 25 mg PO Q6H PRN PRN Reason: Anxiety Last Admin: 09/07/21 20:38 Dose: 25 mg Ibuprofen (Ibuprofen 600 Mg Tablet) 600 mg PO Q8H PRN PRN Reason: Pain, Severe (Pain Scale 7-10) Last Admin: 09/08/21 20:48 Dose: 600 mg Losartan Potassium (Losartan Potassium 50 Mg Tablet) 100 mg PO DAILY [facility]; Protocol Last Admin: 09/09/21 08:11 Dose: 100 mg Magnesium Hydroxide (Milk Of Magnesia 30 Ml Oral.Susp) 30 ml PO DAILY PRN PRN Reason: Constipation Risperidone (Risperidone 2 Mg Tablet) 2 mg PO BEDTIME [facility] Last Admin: 09/09/21 21:58 Dose: 2 mg Trazodone HCl (Trazodone Hcl 50 Mg Tablet) 50 mg PO BEDTIME PRN PRN Reason: Insomnia Allergies Allergies Allergy/AdvReac Type Severity Reaction Status Date / Time No Known Allergies Allergy Verified 08/02/20 17:33 [No Known Allergies*] Assessment & Plan Assessment & Plan (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 obtain collateral information- pending 2. continue risperidone at 2mg po qhs. See cardiology note re: QTc prolongation in setting of RBBB with prolonged QRS. 3. aftercare planning. (2) Right bundle branch block (RBBB) on electrocardiogram (ECG): Status: Acute Code(s): I45.10 - Unspecified right bundle-branch block Assessment and Plan: Patient with underlying right bundle-branch block with prolonged QRS which is going no prolonged QT interval as QRS interval is part of the QT interval. In this situation usually need to check JT interval and JT prolongation index. This is a better evaluated indicator in patient with prolonged QRS, especially evaluated in patient with left bundle-branch block. In this patient initial 2 EKGs showed JT prolongation index of 98 milliseconds which is within normal limits. Interestingly the 3rd EKG shows a JT prolongation index of 112 millisecond which is at upper limits of normal. At this point time I would use any psychotropic medication as needed for his treatment of psychiatric condition. Recommend to measure JT prolongation index after escalation of his dose and/or addition of new QT prolonging medication. JT prolongation index= JT interval (QT-QRS duration)*( HR+100)/ 518. Will sign of the case at this point time. Thank you for allowing me to partake in his care I spent minutes with the patient and/or on the patient floor today, greater than?50% of which was spent counseling/coordinating care. Reason for contiued inpatient stay Substantial Risk for: inability to function
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
[2021-09-09] MEDS: Famotidine 20 MG TABLET 40 MG PO (18:16)
[2021-09-09 21:50] VITALS: BP 149/94; PULSE 94; RESP 18; TEMP 36.2; O2SAT 98
[2021-09-09] MEDS: risperiDONE 2 MG TABLET PO (21:58)
[2021-09-09] MEDS: clonazePAM 1 MG TABLET PO (21:58)
[2021-09-10] MEDS: clonazePAM 1 MG TABLET PO (02:58)
[2021-09-10] MEDS: dilTIAZem HCL CD 120 MG CAP.ER.DEG PO (10:15)
[2021-09-10] MEDS: Losartan Potassium 50 MG TABLET 100 MG PO (10:15)
[2021-09-10] MEDS: Atorvastatin Calcium 40 MG TABLET PO (10:16)
[2021-09-10] MEDS: allopurinoL 100 MG TABLET PO (10:16)
[2021-09-10 10:23] VITALS: BP 125/88; PULSE 92; RESP 20; TEMP 36.3; O2SAT 97
--- NOTE | 2021-09-10 13:25 | HO.PSYCHPN ---
Subjective Subjective Date of Service: 09/10/21 Reason For Visit: SI Psychosis Interim History: Patient seen. He reports he feels well. He goes over the events that brought him over and says he has no thoughts of harm to self, his GF or the other man he saw her talking to on the phone. He is mostly isolated in his room. He presents as pleasant. He reports he spoke with GF and things are better between them. No SI/HI. He wants to be discharged as soon as possible. 3 day notice expires Sunday Review of Systems Review of Systems Yes all other systems are reviewed and are negative Constitutional: Reports no additional constitutional complaints Mental Status Exam Mental Status Exam Narrative: Appearance: casually groomed, fair hygiene in NAD Behavior:cooperative psychomotor: no agitation or retardation noted Speech:clear, normal rate/rhythm/volume, spontaneous Thought process:linear Thought content:paranoia about girlfriend having affairs Mood: good Affect: congruent SI:none HI:none VH/AH:denies Delusions:delusions related to GF having affairs Insight/judgment:fair x 2. Memory/cog: alert, oriented x 3. grossly intact to conversational testing. Diagnostics Vital Signs (24Hr): Vital Signs - 24 hr 09/09/21 21:50 09/10/21 10:23 Temperature 97.2 F 97.4 F Pulse Rate 94 92 Respiratory Rate 18 20 Blood Pressure 149/94 H 125/88 Pulse Oximetry 98 97 Oxygen Delivery Method Room Air Room Air BMI result Body Mass Index 36.5 Labs Results: 09/06/21 19:57 09/08/21 08:39 Medications Medications Current Medications Acetaminophen (Acetaminophen 325 Mg Tablet) 650 mg PO Q6H PRN PRN Reason: Headache/Pain Mild Scale (1-3) Al Hydroxide/Mg Hydroxide (Magnesium Hydrox/Alum Hydrox 30 Ml Oral.Susp) 30 ml PO Q6H PRN PRN Reason: Heartburn/Nausea Albuterol Sulfate (Albuterol Sulfate 90 Mcg 8 Gm Inhaler) 2 puff INHALE Q4H PRN PRN Reason: wheezing Allopurinol (Allopurinol 100 Mg Tablet) 100 mg PO DAILY [facility] Last Admin: 09/10/21 10:16 Dose: 100 mg Atorvastatin Calcium (Atorvastatin Calcium 40 Mg Tablet) 40 mg PO DAILY [facility] Last Admin: 09/10/21 10:16 Dose: 40 mg Clonazepam (Clonazepam 1 Mg Tablet) 1 mg PO DAILY PRN PRN Reason: insomnia Last Admin: 09/10/21 02:58 Dose: 1 mg Diltiazem HCl (Diltiazem Hcl Cd 120 Mg Cap.Er.Deg) 120 mg PO DAILY [facility]; Protocol Last Admin: 09/10/21 10:15 Dose: 120 mg Famotidine (Famotidine 20 Mg Tablet) 40 mg PO BID PRN PRN Reason: heartburn Last Admin: 09/09/21 18:16 Dose: 40 mg Hydroxyzine HCl (Hydroxyzine Hcl 25 Mg Tablet) 25 mg PO Q6H PRN PRN Reason: Anxiety Last Admin: 09/07/21 20:38 Dose: 25 mg Ibuprofen (Ibuprofen 600 Mg Tablet) 600 mg PO Q8H PRN PRN Reason: Pain, Severe (Pain Scale 7-10) Last Admin: 09/10/21 16:07 Dose: 600 mg Losartan Potassium (Losartan Potassium 50 Mg Tablet) 100 mg PO DAILY [facility]; Protocol Last Admin: 09/10/21 10:15 Dose: 100 mg Magnesium Hydroxide (Milk Of Magnesia 30 Ml Oral.Susp) 30 ml PO DAILY PRN PRN Reason: Constipation Risperidone (Risperidone 2 Mg Tablet) 2 mg PO BEDTIME [facility] Last Admin: 09/09/21 21:58 Dose: 2 mg Trazodone HCl (Trazodone Hcl 50 Mg Tablet) 50 mg PO BEDTIME PRN PRN Reason: Insomnia Allergies Allergies Allergy/AdvReac Type Severity Reaction Status Date / Time trazodone Allergy Shortness Verified 09/10/21 18:36 of Breath Assessment & Plan Assessment & Plan (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 obtain collateral information- pending 2. continue risperidone at 2mg po qhs. See cardiology note re: QTc prolongation in setting of RBBB with prolonged QRS. 3. aftercare planning. (2) Right bundle branch block (RBBB) on electrocardiogram (ECG): Status: Acute Code(s): I45.10 - Unspecified right bundle-branch block Assessment and Plan: Patient with underlying right bundle-branch block with prolonged QRS which is going no prolonged QT interval as QRS interval is part of the QT interval. In this situation usually need to check JT interval and JT prolongation index. This is a better evaluated indicator in patient with prolonged QRS, especially evaluated in patient with left bundle-branch block. In this patient initial 2 EKGs showed JT prolongation index of 98 milliseconds which is within normal limits. Interestingly the 3rd EKG shows a JT prolongation index of 112 millisecond which is at upper limits of normal. At this point time I would use any psychotropic medication as needed for his treatment of psychiatric condition. Recommend to measure JT prolongation index after escalation of his dose and/or addition of new QT prolonging medication. JT prolongation index= JT interval (QT-QRS duration)*( HR+100)/ 518. Will sign of the case at this point time. Thank you for allowing me to partake in his care I spent minutes with the patient and/or on the patient floor today, greater than?50% of which was spent counseling/coordinating care. Reason for contiued inpatient stay Substantial Risk for: harm to others and rapid decompensation
[2021-09-10] MEDS: Ibuprofen 600 MG TABLET PO (16:07)
[2021-09-10 22:12] VITALS: BP 132/78; PULSE 85; RESP 18; TEMP 36.4; O2SAT 98
[2021-09-11] MEDS: Famotidine 20 MG TABLET 40 MG PO ×2 (04:11→18:50)
[2021-09-11 08:50] VITALS: BP 126/67; PULSE 95; RESP 18; TEMP 36.2; O2SAT 94
[2021-09-11] MEDS: Losartan Potassium 50 MG TABLET 100 MG PO (09:00)
[2021-09-11] MEDS: dilTIAZem HCL CD 120 MG CAP.ER.DEG PO (09:01)
[2021-09-11] MEDS: Atorvastatin Calcium 40 MG TABLET PO (09:01)
[2021-09-11] MEDS: allopurinoL 100 MG TABLET PO (09:01)
[2021-09-11] MEDS: Ibuprofen 600 MG TABLET PO (09:53)
--- NOTE | 2021-09-11 15:31 | P.PNPSI_ITS ---
Subjective Subjective Date of Service: 09/11/21 Reason For Visit: SI Psychosis Interim History: Patient seen. Discussed with team. He continues to report he feels well. He denies feeling depressed. Denies any ideation of harm to self or others. He reports he talked to his GF and the conversation went well. He is mostly isolated in his room. He presents as pleasant. He reports he spoke with GF and things are better between them. No SI/HI. He wants to be discharged as soon as possible. 3 day notice expires Sunday Review of Systems Review of Systems Yes all other systems are reviewed and are negative Constitutional: Reports no additional constitutional complaints Mental Status Exam Mental Status Exam Narrative: Appearance: casually groomed, fair hygiene in NAD Behavior:cooperative psychomotor: no agitation or retardation noted Speech:clear, normal rate/rhythm/volume, spontaneous Thought process:linear Thought content:paranoia about girlfriend having affairs Mood: good Affect: congruent SI:none HI:none VH/AH:denies Delusions:delusions related to GF having affairs Insight/judgment:fair x 2. Memory/cog: alert, oriented x 3. grossly intact to conversational testing. Diagnostics Vital Signs (24Hr): Vital Signs - 24 hr 09/10/21 22:12 09/11/21 08:50 Temperature 97.6 F 97.1 F Pulse Rate 85 95 Respiratory Rate 18 18 Blood Pressure 132/78 126/67 Pulse Oximetry 98 94 Oxygen Delivery Method Room Air Room Air BMI result Body Mass Index 36.5 Labs Results: 09/06/21 19:57 09/08/21 08:39 Medications Medications Current Medications Acetaminophen (Acetaminophen 325 Mg Tablet) 650 mg PO Q6H PRN PRN Reason: Headache/Pain Mild Scale (1-3) Al Hydroxide/Mg Hydroxide (Magnesium Hydrox/Alum Hydrox 30 Ml Oral.Susp) 30 ml PO Q6H PRN PRN Reason: Heartburn/Nausea Albuterol Sulfate (Albuterol Sulfate 90 Mcg 8 Gm Inhaler) 2 puff INHALE Q4H PRN PRN Reason: wheezing Allopurinol (Allopurinol 100 Mg Tablet) 100 mg PO DAILY [facility] Last Admin: 09/11/21 09:01 Dose: 100 mg Atorvastatin Calcium (Atorvastatin Calcium 40 Mg Tablet) 40 mg PO DAILY [facility] Last Admin: 09/11/21 09:01 Dose: 40 mg Clonazepam (Clonazepam 1 Mg Tablet) 1 mg PO DAILY PRN PRN Reason: insomnia Last Admin: 09/10/21 02:58 Dose: 1 mg Diltiazem HCl (Diltiazem Hcl Cd 120 Mg Cap.Er.Deg) 120 mg PO DAILY [facility]; Protocol Last Admin: 09/11/21 09:01 Dose: 120 mg Famotidine (Famotidine 20 Mg Tablet) 40 mg PO BID PRN PRN Reason: heartburn Last Admin: 09/11/21 18:50 Dose: 40 mg Hydroxyzine HCl (Hydroxyzine Hcl 25 Mg Tablet) 25 mg PO Q6H PRN PRN Reason: Anxiety Last Admin: 09/07/21 20:38 Dose: 25 mg Ibuprofen (Ibuprofen 600 Mg Tablet) 600 mg PO Q8H PRN PRN Reason: Pain, Severe (Pain Scale 7-10) Last Admin: 09/11/21 09:53 Dose: 600 mg Losartan Potassium (Losartan Potassium 50 Mg Tablet) 100 mg PO DAILY [facility]; Protocol Last Admin: 09/11/21 09:00 Dose: 100 mg Magnesium Hydroxide (Milk Of Magnesia 30 Ml Oral.Susp) 30 ml PO DAILY PRN PRN Reason: Constipation Risperidone (Risperidone 2 Mg Tablet) 2 mg PO BEDTIME [facility] Last Admin: 09/11/21 00:00 Dose: 2 mg Allergies Allergies Allergy/AdvReac Type Severity Reaction Status Date / Time trazodone Allergy Shortness Verified 09/10/21 18:36 of Breath Assessment & Plan Assessment & Plan (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 obtain collateral information- pending 2. continue risperidone at 2mg po qhs. See cardiology note re: QTc prolongation in setting of RBBB with prolonged QRS. 3. aftercare planning. 09/11: Continue treatment plan. (2) Right bundle branch block (RBBB) on electrocardiogram (ECG): Status: Acute Code(s): I45.10 - Unspecified right bundle-branch block Assessment and Plan: Patient with underlying right bundle-branch block with prolonged QRS which is going no prolonged QT interval as QRS interval is part of the QT interval. In this situation usually need to check JT interval and JT prolongation index. This is a better evaluated indicator in patient with prolonged QRS, especially evaluated in patient with left bundle-branch block. In this patient initial 2 EKGs showed JT prolongation index of 98 milliseconds which is within normal limits. Interestingly the 3rd EKG shows a JT prolongation index of 112 millisecond which is at upper limits of normal. At this point time I would use any psychotropic medication as needed for his treatment of psychiatric condition. Recommend to measure JT prolongation index after escalation of his dose and/or addition of new QT prolonging medication. JT prolongation index= JT interval (QT-QRS duration)*( HR+100)/ 518. Will sign of the case at this point time. Thank you for allowing me to partake in his care I spent minutes with the patient and/or on the patient floor today, greater than?50% of which was spent counseling/coordinating care. Reason for contiued inpatient stay Substantial Risk for: harm to self, harm to others and rapid decompensation
[2021-09-11 21:15] VITALS: BP 133/92; PULSE 104; RESP 18; TEMP 36.7; O2SAT 96
[2021-09-11] MEDS: risperiDONE 2 MG TABLET PO ×2 (21:20)
[2021-09-11] MEDS: clonazePAM 1 MG TABLET PO ×2 (21:20)
[2021-09-11 21:22] LABS: Glucose, Whole Blood 164 mg/dL (60-115)
[2021-09-11] MEDS: hydrOXYzine HCL 25 MG TABLET PO (23:50)
[2021-09-12] MEDS: clonazePAM 1 MG TABLET PO (01:29)
[2021-09-12 06:00] VITALS: BP 131/79; PULSE 99; RESP 17; TEMP 36.2; O2SAT 99
[2021-09-12] MEDS: Losartan Potassium 50 MG TABLET 100 MG PO (10:08)
[2021-09-12] MEDS: dilTIAZem HCL CD 120 MG CAP.ER.DEG PO (10:11)
[2021-09-12] MEDS: allopurinoL 100 MG TABLET PO (10:11)
[2021-09-12] MEDS: Atorvastatin Calcium 40 MG TABLET PO (10:12)
--- NOTE | 2021-09-12 11:05 | P.DS_ITS ---
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: Status: Inactive (2) Right bundle branch block (RBBB) on electrocardiogram (ECG): Status: Acute DS: Medications Discharge Medications Home Medications: Home Medications Medication Instructions Recorded Confirmed albuterol sulfate 90 mcg/actuation 2 puff inhalation Q4-6H PRN 08/03/20 09/06/21 aerosol inhaler wheezing allopurinol 100 mg tablet 1 tab PO DAILY 09/06/21 09/06/21 atorvastatin 40 mg tablet 1 tab PO DAILY 09/06/21 09/06/21 clonazepam 1 mg tablet 1 tab PO DAILY PRN insomnia 09/06/21 09/06/21 diltiazem HCl 120 mg capsule,24 1 cap PO DAILY 09/06/21 09/06/21 hr,extended release (Tiadylt ER) famotidine 40 mg tablet 1 tab PO BID PRN heartburn 09/06/21 09/06/21 losartan 100 mg tablet 1 tab PO DAILY 09/06/21 09/06/21 risperidone 2 mg tablet 1 tab PO BEDTIME 09/06/21 09/06/21 Previous Rx's Medication Instructions Recorded ibuprofen 600 mg tablet 600 mg PO Q8H PRN Pain, Severe 08/10/20 (Pain Scale 7-10) #30 tabs Mental Status Exam Mental Status Exam Narrative: Appearance: casually groomed, fair hygiene in NAD Behavior:cooperative psychomotor: no agitation or retardation noted Speech:clear, normal rate/rhythm/volume, spontaneous Thought process:linear Thought content:paranoia about girlfriend having affairs Mood: good Affect: congruent SI:none HI:none VH/AH:denies Delusions:delusions related to GF having affairs Insight/judgment:fair x 2. Memory/cog: alert, oriented x 3. grossly intact to conversational testing. Data Data Completed and Pending Completed studies during hospitalization [Text1]: 09/06/21 09/06/21 09/06/21 19:57 19:57 19:57 WBC 12.4 H RBC 5.65 Hgb 15.9 Hct 47.0 MCV 83.2 MCH 28.1 MCHC 33.8 RDW 13.5 Plt Count 290 MPV 10.1 Immature Gran % (Auto) 0.6 H Neut % (Auto) 72.0 Lymph % (Auto) 21.1 Cavalier % (Auto) 5.5 Eos % (Auto) 0.3 Baso % (Auto) 0.5 Lymph # (Auto) 2.6 Cavalier # (Auto) 0.7 Eos # (Auto) 0.0 Baso # (Auto) 0.1 Abs Immat Gran (auto) 0.07 H Absolute Neuts (auto) 9.0 H Absolute Nucleated RBC 0.000 Nucleated RBC % (auto) 0.0 Sodium 140 Potassium 3.7 Chloride 102 Carbon Dioxide 26 Anion Gap 16 BUN 12 Creatinine 1.25 Estim Creat Clear Calc 82.7 Estimated GFR > 60 POC Glucose Random Glucose 136 H Fasting Glucose Estimat Average Glucose Hemoglobin A1c % Calcium 9.6 Magnesium 2.1 Total Bilirubin 0.9 AST 16 ALT 23 Alkaline Phosphatase 77 Total Protein 8.2 H Albumin 5.0 Triglycerides Cholesterol LDL Cholesterol, Calc HDL Cholesterol Vitamin B12 TSH Urine Opiates Screen Urine Fentanyl Screen Ur Barbiturates Screen Ur Phencyclidine Scrn Ur Amphetamines Screen U Benzodiazepines Scrn Urine Cocaine Screen U Marijuana (THC) Screen COVID-19 (MAGI) Negative COVID-19 Clin Com See Note 09/06/21 09/07/21 09/08/21 19:57 20:42 08:39 WBC RBC Hgb Hct MCV MCH MCHC RDW Plt Count MPV Immature Gran % (Auto) Neut % (Auto) Lymph % (Auto) Cavalier % (Auto) Eos % (Auto) Baso % (Auto) Lymph # (Auto) Cavalier # (Auto) Eos # (Auto) Baso # (Auto) Abs Immat Gran (auto) Absolute Neuts (auto) Absolute Nucleated RBC Nucleated RBC % (auto) Sodium 141 Potassium 4.2 Chloride 103 Carbon Dioxide 27 Anion Gap 15 BUN 26 H D Creatinine 1.92 H Estim Creat Clear Calc 53.8 Estimated GFR 37 POC Glucose 121 H Random Glucose Fasting Glucose 102 H Estimat Average Glucose Hemoglobin A1c % Calcium 9.4 Magnesium Total Bilirubin 1.0 AST 9 D ALT 15 Alkaline Phosphatase 68 Total Protein 6.4 L D Albumin 4.0 Triglycerides 218 Cholesterol 218 LDL Cholesterol, Calc 143 HDL Cholesterol 32 Vitamin B12 TSH 1.42 Urine Opiates Screen Not Detected Urine Fentanyl Screen Not Detected Ur Barbiturates Screen Not Detected Ur Phencyclidine Scrn Not Detected Ur Amphetamines Screen Not Detected U Benzodiazepines Scrn Not Detected Urine Cocaine Screen POSITIVE H U Marijuana (THC) Screen Not Detected COVID-19 (MAGI) COVID-19 Clin Com 09/08/21 09/08/21 09/08/21 08:39 08:39 10:37 WBC RBC Hgb Hct MCV MCH MCHC RDW Plt Count MPV Immature Gran % (Auto) Neut % (Auto) Lymph % (Auto) Cavalier % (Auto) Eos % (Auto) Baso % (Auto) Lymph # (Auto) Cavalier # (Auto) Eos # (Auto) Baso # (Auto) Abs Immat Gran (auto) Absolute Neuts (auto) Absolute Nucleated RBC Nucleated RBC % (auto) Sodium Potassium Chloride Carbon Dioxide Anion Gap BUN Creatinine Estim Creat Clear Calc Estimated GFR POC Glucose 96 Random Glucose Fasting Glucose Estimat Average Glucose 108 Hemoglobin A1c % 5.4 Calcium Magnesium Total Bilirubin AST ALT Alkaline Phosphatase Total Protein Albumin Triglycerides Cholesterol LDL Cholesterol, Calc HDL Cholesterol Vitamin B12 337 TSH Urine Opiates Screen Urine Fentanyl Screen Ur Barbiturates Screen Ur Phencyclidine Scrn Ur Amphetamines Screen U Benzodiazepines Scrn Urine Cocaine Screen U Marijuana (THC) Screen COVID-19 (MAGI) COVID-19 Clin Com 09/11/21 21:16 WBC RBC Hgb Hct MCV MCH MCHC RDW Plt Count MPV Immature Gran % (Auto) Neut % (Auto) Lymph % (Auto) Cavalier % (Auto) Eos % (Auto) Baso % (Auto) Lymph # (Auto) Cavalier # (Auto) Eos # (Auto) Baso # (Auto) Abs Immat Gran (auto) Absolute Neuts (auto) Absolute Nucleated RBC Nucleated RBC % (auto) Sodium Potassium Chloride Carbon Dioxide Anion Gap BUN Creatinine Estim Creat Clear Calc Estimated GFR POC Glucose 164 H Random Glucose Fasting Glucose Estimat Average Glucose Hemoglobin A1c % Calcium Magnesium Total Bilirubin AST ALT Alkaline Phosphatase Total Protein Albumin Triglycerides Cholesterol LDL Cholesterol, Calc HDL Cholesterol Vitamin B12 TSH Urine Opiates Screen Urine Fentanyl Screen Ur Barbiturates Screen Ur Phencyclidine Scrn Ur Amphetamines Screen U Benzodiazepines Scrn Urine Cocaine Screen U Marijuana (THC) Screen COVID-19 (MAGI) COVID-19 Clin Com DS: Summary Hospital Course Hospital Course: per 09/08 admission note: Mr. Altamirano is a 51 year-old male with hx of paranoia in setting of cocaine use. He was brought via EMS to [facility] after girlfriend called crisis reporting increase paranoia, bizarre behavior. His utox in the ED positive for cocaine. Pt had one admission last year with similar presentation including paranoid about his girlfriend having affair with someone else. On the unit, Mr. Altamirano presents as pleasant. He reports that his girlfriend was acting in unusual ways including the way she was eating and music she was hearing which for him was a clue that she was seeing other men. He reports he saw text messages but couldn't show them to anyone because he suspects she deleted them. He denies SI/HI. He reports sleeping well. He reports usual appetite. He reports at times hearing 's voice talking with others but couldn't see .? Past Psychiatric History: Inpatient: none prior OP: [facility]- Dr. Ella Muñoz, Therapist Ashu Past Trial: clonazepam, ambien, lexapro Medical Evaluation Reviewed: Yes PMFSH Medical History? Back pain Depression Diabetes High cholesterol HTN (hypertension) Hypoglycemia Family History: none Social History: Pt . He has 3 adult children who are close to him. He is currently not working due disability due to anxiety/depression. He has partner of 4 years. 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 Substance History: cocaine on and off since age 16. last use 3 days prior to admission. Trauma History: denies 09/09: Pt presents as pleasant. He reports he feels less worried about GF having other men. He reports he spoke with GF and things are better between them. No SI/HI. He wants to be discharged as soon as possible. Pt has Qtc prolongation with RBBB (prolonged QRS)- per enrolled nurse, Dr. Jara, as long as calculated JT prolongation is less than 112msec, is fine to continue qtc prolongation meds such as antipsychotic risperidone. Currently his JT is 112msec- will keep risperidone at 2mg po qhs. no lexaprol or other qtc prolonging agents at this time. 09/10: Patient seen. He reports he feels well. He goes over the events that brought him over and says he has no thoughts of harm to self, his GF or the other man he saw her talking to on the phone. He is mostly isolated in his room. He? presents as pleasant. He reports he spoke with GF and things are better between them. No SI/HI. He wants to be discharged as soon as possible. 3 day notice expires Monday 09/11: Patient seen. Discussed with team. He continues to report he feels well. He denies feeling depressed. Denies any ideation of harm to self or others. He reports he talked to his GF and the conversation went well. He is mostly isolated in his room. He? presents as pleasant. He reports he spoke with GF and things are better between them. No SI/HI. He wants to be discharged as soon as possible. 3 day notice expires Tuesday 09/12: safe, stable. discharged on maturation of 3-day notice. Time Spent with Patient Time attestation: Total time spent providing and/or coordinating discharge services: Time spent: Greater than 30 minutes Discharge Plan Discharge Patient Disposition: Home, Self-Care Discharge Diagnosis: Schizophrenia, Paranoid Type Referrals: ASHU LUX, THERAPIST [Other] - 09/12/21 3:00 pm (TELEHEALTH) VIET CANTU, MEDICATION PROVIDER [Other] - 10/04/21 1:20 pm (TELEHEALTH) Name,MD Mahad [Physician] - 09/19/21 1:00 am Discharge Medications: Continued albuterol sulfate 90 mcg/actuation HFA aerosol inhaler 2 puff inhalation Q4-6H PRN (Reason: wheezing) ibuprofen 600 mg Tablet 600 mg PO Q8H PRN (Reason: Pain, Severe (Pain Scale 7-10)) Qty: 30 0RF famotidine 40 mg tablet 1 tab PO BID PRN (Reason: heartburn) clonazepam 1 mg tablet 1 tab PO DAILY PRN (Reason: insomnia) risperidone 2 mg tablet 1 tab PO BEDTIME atorvastatin 40 mg tablet 1 tab PO DAILY allopurinol 100 mg tablet 1 tab PO DAILY diltiazem HCl [Tiadylt ER] 120 mg capsule,extended release 24 hr 1 cap PO DAILY losartan 100 mg tablet 1 tab PO DAILY Discontinued risperidone [Risperdal] 0.5 mg tablet 1 tab PO QPM escitalopram oxalate [Lexapro] 10 mg tablet 1 tab PO BEDTIME Discharge Orders: Discharge Order (Routine); Ordered 09/12/21 Ordered By: Kelton Flores Diet: Advance to usual diet Activity on Discharge: As tolerated Stand Alone Forms: Patient Portal Discharge page, Community Support Care Plan Goals: remain safe and sober in the outpatient treatment setting Health Concerns: hypertension GERD RBBB Plan of Treatment: take medications as prescribed, attend appointments as scheduled Assessment: not at imminent risk of harm to self or others Discharge Date/Time: 09/12/21 11:24
== END 2021-09-12 11:24 | disposition home or self-care (01) | DRG 750 ==
LOC: HO.ED 09-07 13:02 → HO.PADLT16 09-07 15:09
PROVIDERS: Internal Medicine; Admitting Provider Psychiatry & Neurology Psychiatry; Emergency Provider Emergency Medicine Emergency Medical Services; Responsible Provider Social Worker; Visit Provider Social Worker
DX: F20.0 Paranoid schizophrenia (principal); F14.259 Cocaine dependence with cocaine-induced psychotic disorder, unspecified; I10 Essential (primary) hypertension; I45.10 Unspecified right bundle-branch block; F14.229 Cocaine dependence with intoxication, unspecified; Z56.0 Unemployment, unspecified; Z20.822 Contact with and (suspected) exposure to COVID-19; Z88.8 Allergy status to other drugs, medicaments and biological substances; Z79.899 Other long term (current) drug therapy
CPT/HCPCS: 36415; 80053; 80061; 80307; 82607; 82947; 83036; 83735; 84443; 85025; 87635; 93005; 94660; 99285

== ENCOUNTER 2022-01-14 10:10 | Inpatient (IN) | payer MEDICAID, SELFPAY ==
--- NOTE | ~2022-01-14 | US_ITS ---
EXAMINATION: US ABDOMEN LIMITED CLINICAL INFORMATION: Abdominal pain. COMPARISON: CT scan of the abdomen and pelvis performed earlier today. TECHNIQUE: Real-time imaging of the right upper quadrant abdominal viscera. FINDINGS: PANCREAS: Visualized portions unremarkable. LIVER: Unremarkable. GALLBLADDER: Mild mural thickening and edema are seen measuring up to 0.6 cm. Trace pericholecystic fluid is seen. Very small dependent gallstones are seen. COMMON BILE DUCT: Normal in caliber measuring 0.3 cm in diameter. RIGHT KIDNEY: 11.9 cm. Unremarkable. FREE FLUID: None. US/US abdomen limited IMPRESSION: Cholelithiasis without evidence for acute cholecystitis correlating with CT findings.
--- NOTE | ~2022-01-14 | CT_ITS ---
EXAMINATION: CT ABDOMEN AND PELVIS WITH CONTRAST CLINICAL INFORMATION: Upper abdominal pain COMPARISON: Previous CT of the abdomen and pelvis September 2017 TECHNIQUE: Multidetector volumetric images were obtained from the superior aspect of the liver through the pubic symphysis following administration 85 mL of Omnipaque 350 intravenous contrast. Sagittal and coronal reformatted images were obtained on the technologist's workstation. Oral contrast: Yes This CT examination was performed using dose optimization techniques as appropriate, variously including the following: *Automated exposure control *Adjustment of mA and/or kV according to patient size (this includes techniques or standardized protocols for targeted exams where dose is matched to indication/reason for exam; i.e. extremities or head) *Use of iterative reconstruction technique DLP: 708 mGy-cm FINDINGS: LUNG BASES: Stable 4 mm calcified left lower lobe nodule. Lung bases are otherwise clear. LIVER, GALLBLADDER, AND BILIARY TREE: The liver is normal in size, shape, and attenuation. No focal hepatic lesion or biliary ductal dilatation is present. The gallbladder is upper normal in size. There is question of stranding of the pericholecystic fat and small amount of fluid surrounding the gallbladder. No gallstones are seen by CT scan. PANCREAS: Unremarkable. SPLEEN: Unremarkable. ADRENAL GLANDS: Unremarkable. KIDNEYS AND URETERS: Small bilateral nonobstructing renal stones. Small right renal cyst. No imaging follow-up. BLADDER: Unremarkable. GASTROINTESTINAL TRACT: Diverticulosis of the colon. No evidence of diverticulitis. The small and large bowel are otherwise unremarkable. The appendix is unremarkable. The stomach is unremarkable. ABDOMINAL WALL: No significant hernia is appreciated. LYMPH NODES: Normal. VASCULAR: Unremarkable. PELVIC VISCERA: Unremarkable. OSSEOUS STRUCTURES: Mild degenerative changes of the spine. CT/CT abdomen pelvis w IV con IMPRESSION: Question abnormal appearing gallbladder with stranding of the pericholecystic fat and small amount of fluid. No gallstone seen by CT. Follow-up ultrasound recommended. Small nonobstructing bilateral renal stones. Small right renal cyst. Mild diverticulosis of the colon. Fleischner guidelines were followed.
--- NOTE | ~2022-01-14 | XR_ITS ---
EXAMINATION: XR CHEST CLINICAL INFORMATION: Cough. COMPARISON: 02/25/2019 chest radiograph. TECHNIQUE: Frontal view of the chest was obtained. FINDINGS: No significant abnormality is noted involving the heart, lungs, mediastinum, bony thorax or soft tissues. XR/XR chest 1V IMPRESSION: No acute cardiopulmonary process.
[2022-01-14 10:15] VITALS: BP 190/119; PULSE 80; RESP 18; TEMP 37.2; O2SAT 100; BMI 36.1
--- NOTE | 2022-01-14 10:15 | ECG_ITS ---
Test Reason : ABD PAIN Blood Pressure : / mmHG Vent. Rate : 079 BPM Atrial Rate : 079 BPM P-R Int : 152 ms QRS Dur : 150 ms QT Int : 438 ms P-R-T Axes : 072 029 028 degrees QTc Int : 502 ms Normal sinus rhythm Possible Left atrial enlargement Right bundle branch block Abnormal ECG When compared with ECG of 08-SEP-2021 14:32, QT has shortened Referred By: Milton Diaz Electronically Signed By:KONRAD RAMIREZ MD
--- NOTE | 2022-01-14 10:22 | ED.ABDPAIN ---
HPI - Abdominal Pain General Chief Complaint: Abdominal Pain Stated Complaint: epigastric pain Time Seen by Provider: 01/14/22 10:13 Source: patient and EMS Mode of arrival: EMS Limitations: no limitations History of Present Illness HPI narrative: This is a 51 years old male who presented by ambulance with chief complaint of abdominal pain x6 h, the pain is localized in the upper abdomen denies any diarrhea, deny any abdominal surgery in the past. The patient has history of schizophrenia and history of cocaine use disorder, he had a positive cocaine test 09/26 MD elicited complaint: abdominal pain Pertinent past history: other (cocaibe abuse) Onset (ago): hour(s) (6) Pain Consistency: constant Severity: moderate Radiation: none Migration to: no migration Exacerbating factors: nothing Related Data Home Medications Medication Instructions Recorded Confirmed albuterol sulfate 90 mcg/actuation 2 puff inhalation Q4-6H PRN 08/03/20 09/06/21 aerosol inhaler wheezing allopurinol 100 mg tablet 1 tab PO DAILY 09/06/21 09/06/21 atorvastatin 40 mg tablet 1 tab PO DAILY 09/06/21 09/06/21 clonazepam 1 mg tablet 1 tab PO DAILY PRN insomnia 09/06/21 09/06/21 diltiazem HCl 120 mg capsule,24 1 cap PO DAILY 09/06/21 09/06/21 hr,extended release (Tiadylt ER) famotidine 40 mg tablet 1 tab PO BID PRN heartburn 09/06/21 09/06/21 losartan 100 mg tablet 1 tab PO DAILY 09/06/21 09/06/21 risperidone 2 mg tablet 1 tab PO BEDTIME 09/06/21 09/06/21 Previous Rx's Medication Instructions Recorded ibuprofen 600 mg tablet 600 mg PO Q8H PRN Pain, Severe 08/10/20 (Pain Scale 7-10) #30 tabs Allergies Allergy/AdvReac Type Severity Reaction Status Date / Time trazodone Allergy Shortness Verified 09/10/21 18:36 of Breath Review of Systems Constitutional: Reports no additional constitutional complaints Reports system reviewed and no additional complaints, except as documented Respiratory: Reports no additional respiratory complaints Gastrointestinal: Reports abdominal pain Reports system reviewed and no additional complaints, except as documented PMFSH Past Medical History Medical History Back pain 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 Depression Diabetes High cholesterol HTN (hypertension) Hypoglycemia Substance-induced psychotic disorder with delusions Social History Social History Household Members: Significant Other Household Members Other:: 2 daughters and 1 son Housing: Apartment Do you presently have visiting nurse or other home services: No Alcohol intake: never Patient Tobacco Use Status: Never used Tobacco Second Hand Smoke Exposure: Yes Advance Directives: No Advance Directives Information Provided: Yes service: No Sexual orientation: Straight/Heterosexual Physical Exam ED Vital Signs: Vital Signs - 24 hr 01/14/22 10:15 Temperature 98.9 F Pulse Rate 80 Respiratory Rate 18 Blood Pressure 190/119 H Pulse Oximetry 100 Oxygen Delivery Method Room Air BMI result Body Mass Index 36.1 Const General: cooperative Nutritional Appearance: average body habitus Orientation/consciousness: patient oriented x3 Limitations: no limitations HENMT Head: Yes normal to inspection Ears: hearing grossly normal bilaterally General nose exam: Normal external nose present Face and sinus: Yes normal facial exam Mouth: Normal oral and palatal mucosa present Throat: Yes posterior oropharynx normal Neck Neck: Yes normal visual inspection Chest Chest palpation & inspection: normal inspection of the chest Resp Effort & Inspection: normal respiratory effort Auscultation: clear to auscultation bilaterally Cardio Rate: regular rate Rhythm: regular rhythm GI Palpation (GI): Soft to palpation, not firm, nontender and no guarding Skin General skin exam: no rashes or lesions noted and elasticity normal Rashes: no rashes Neuro General: patient oriented x3 Cranial nerves: Yes CN's II-XII intact bilaterally Cognition (Neuro): normal cognition Medical Decision Making Medical Decision Making Differential Diagnoses: Differential diagnosis (pancreatitis/cholecystitis/SBO) Lab Attestation: I reviewed the patient's lab results. Independent interpretation of EKG, rhythm strip, radiology study: Independent interp EKG,rhythm strip, radiology study I performed an independent interpretation of the: Ultrasound My interpretation is LIVER: Unremarkable. GALLBLADDER: Mild mural thickening and edema are seen measuring up to 0.6 cm. Trace pericholecystic fluid is seen. Very small dependent gallstones are seen. COMMON BILE DUCT: Normal in caliber measuring 0.3 cm in diameter. RIGHT KIDNEY: 11.9 cm. Unremarkable. FREE FLUID: None. US/US abdomen limited IMPRESSION: Cholelithiasis without evidence for acute cholecystitis correlating with CT findings. ? Dictated By: Sergio Henderson MD Signed By: <Electronically signed by Sergio Henderson MD in OV> 01/14/22 1439 Medications Administered Discontinued Medications Generic Name Dose Route Start Last Admin Trade Name Freq PRN Reason Stop Dose Admin Sodium Chloride 1,000 mls @ 999 mls/hr 01/14/22 10:15 01/14/22 11:25 Ns IVCONT 01/14/22 11:15 Infused .Q1H1M [place] Infusion Iohexol 85 ml 01/14/22 11:50 01/14/22 11:50 Iohexol 350 Mg/Ml 75 Ml Infus..Btl IV 01/14/22 11:51 85 ml ONCE ONE Administration Metoclopramide HCl 10 mg 01/14/22 10:16 01/14/22 10:25 Metoclopramide Hcl 10 Mg/2 Ml Vial IVPUSH 01/14/22 10:17 10 mg ONCE ONE Administration Midazolam HCl 1 mg 01/14/22 10:17 01/14/22 10:25 Midazolam Hcl/Pf 2 Mg/2 Ml Vial IVPUSH 01/14/22 10:18 1 mg ONCE ONE Administration Morphine Sulfate 4 mg 01/14/22 11:27 01/14/22 11:32 Morphine Sulfate 4 Mg/Ml Cartridge IVPUSH 01/14/22 11:28 4 mg ONCE ONE Administration Protocol Discharge Plan Discharge Clinical Impression: Biliary colic Patient Disposition: Admitted As Inpatient
[2022-01-14] MEDS: Midazolam HCl/PF 2 MG/2 ML VIAL 1 MG IVPUSH (10:25)
[2022-01-14] MEDS: 0.9 % Sodium Chloride 1,000 ML 999 ML IVCONT (10:25)
[2022-01-14] MEDS: Metoclopramide HCl 10 MG/2 ML VIAL IVPUSH (10:25)
[2022-01-14 10:46] LABS: MANUAL DIFF FLAG NO
[2022-01-14 10:52] LABS: Basophils Absolute Auto 0.1 X10*3/uL (0.0-0.2); Basophils Percent Auto 0.7 % (0-2); Eosinophils Absolute Auto 0.1 X10*3/uL (0.0-0.4); Hematocrit 42.9 % (42.0-52.0); Hemoglobin 13.9 g/dl (14.0-18.0); Imm Gran Abs Auto 0.04 X10*3/uL (0.00-0.03); Imm Gran Pct Auto 0.4 % (0.0-0.4); Lymphocytes Absolute Auto 2.3 X10*3/uL (1.2-4.9); Lymphocytes Percent Auto 21.5 % (20-40); Mean Corpuscular HGB Conc 32.4 g/dl (31.0-36.0); Mean Corpuscular Hemoglobin 27.5 pg (27.0-33.0); Mean Platelet Volume 10.4 fL (9.4-12.4); Monocytes Absolute Auto 0.5 X10*3/uL (0.1-1.2); Monocytes Percent Auto 4.6 % (2-11); Neutrophils Absolute Auto 7.6 x10*3/uL (2.0-8.3); Neutrophils Percent Auto 71.8 % (45-73); Platelet Count 268 X10*3/uL (160-400); Red Blood Count 5.05 X10*6/uL (4.60-5.80); Red Cell Distribution Width 13.9 % (11.0-16.0); White Blood Count 10.6 X10*3/uL (4.8-10.8)
[2022-01-14 11:06] LABS: COVID-19 Test Negative (Negative); IDNOW Serial# 16C4AD1C
[2022-01-14 11:16] LABS: Alanine Aminotransferase 11 U/L (0-40); Albumin Level 4.5 g/dL (3.5-5.0); Alkaline Phosphatase 77 U/L (39-117); Anion Gap 13 (12-20); Aspartate Amino Transferase 9 U/L (5-37); Bilirubin Total 0.4 mg/dL (0.0-1.0); Blood Urea Nitrogen 14 mg/dL (9-16); Calcium 9.2 mg/dL (8.4-10.2); Carbon Dioxide 31 mmol/L (22-29); Chloride 101 mmol/L (96-108); Creatinine Clr Calc Pharmacy 88.7; Estimated Glomerular Filt Rate > 60; Glucose Random 148 mg/dL (60-115); Lipase 19 U/L (8-78); Potassium 3.9 mmol/L (3.3-5.1); Sodium 141 mmol/L (135-145)
[2022-01-14 11:24] LABS: Troponin-I High Sensitivity 4.1 ng/L (<3.5-35.0)
[2022-01-14] MEDS: Morphine Sulfate 4 MG/ML CARTRIDGE IVPUSH (11:32)
[2022-01-14] MEDS: iohexoL 350 MG/ML 75 ML INFUS..BTL 85 ML IV (11:50)
[2022-01-14 16:37] VITALS: BP 122/86; PULSE 104; RESP 19; TEMP 37.1; O2SAT 99
[2022-01-14] MEDS: Piperacillin Sodium/Tazobactam 3.375 GM in 0.9 % Sodium Chloride 50 ML IV ×2 (18:07→21:03)
[2022-01-14] MEDS: Dextrose 5 % and Lactated Ring 1,000 ML 125 ML IVCONT (19:46)
[2022-01-14] MEDS: HYDROmorphone HCl 0.5 MG/0.5 ML SYRINGE IVPUSH (19:46)
--- NOTE | 2022-01-14 20:30 | P.HPGS_ITS ---
History of Present Illness History of Present Illness Date of Service: 01/15/22 Chief complaint: acute cholecystitis Narrative: Ashu Mcnally is a 51 year old male Presenting with complaints of abdominal pain in the right upper quadrant for 6 hours prior to presentation to the emergency department. He denies a previous history of similar pain and reports that the pain was constant and sharp. He has a past history of schizophrenia and cocaine use disorder. Pain is mainly in the right upper quadrant without significant migration. He is not clear of any inciting events, aggravating or relieving factors. Workup in the emergency department did reveal enlarged gallbladder with some stones the neck of the gallbladder. Findings were suggestive of biliary colic. He was admitted to the surgical service for further management. This morning the patient feels much improved with no abdominal pain, nausea, or vomiting. He is hungry and would like to restart his diet. He denies any fever or chills overnight. Review of Systems Review of Systems: Yes all other systems are reviewed and are negative Constitutional: Constitutional: Denies chills, Denies fever(s), Denies headache(s), Denies poor appetite and Denies weakness ENT: Denies headache(s) Cardiovascular: Cardiovascular: Denies chest pain, Denies irregular heart rhythm, Denies palpitations and Denies dyspnea Respiratory: Respiratory: Denies cough, Denies excessive phlegm production and Denies dyspnea Gastrointestinal: Gastrointestinal: Reports abdominal pain, Denies bloating, D enies change in bowel habits, Denies constipation, Denies heartburn, Denies diarrhea, Denies nausea and Denies vomiting Genitourinary: Genitourinary: Denies difficulty urinating and Denies urinary frequency Musculoskeletal: Musculoskeletal: Denies back pain, Denies muscle weakness and Denies numbness Integumentary/Breasts: Skin/Breast: Denies changing lesions and Denies unusual bruising Neurologic: Denies headache(s), Denies numbness, Denies paresthesias and Denies weakness Psychiatric: Psychiatric: Denies anxiety and Denies depression Endocrine: Endocrine: Denies palpitations Hematologic/Lymphatic: Hematologic/Lymphatic: Denies lymphadenopathy [facility] Past Medical History Medical History Back pain 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 Depression Diabetes High cholesterol HTN (hypertension) Hypoglycemia Substance-induced psychotic disorder with delusions Social History Social History Household Members: Significant Other Household Members Other:: 2 daughters and 1 son Housing: Apartment Do you presently have visiting nurse or other home services: No Alcohol intake: never Patient Tobacco Use Status: Current everyday Tobacco user Tobacco use type: Cigarette Cigarettes Per Day: 4 Smoked in Last 30 Days: Yes Patient Interested in Nicotine Replacement: No Patient Given Instructions on How to Stop Smoking: Yes Date Education Initiated: 01/14/22 Second Hand Smoke Exposure: Yes Use of substances other than those prescribed or required for medical reasons: Yes Substance Use Type: Marijuana Last Used Substance: Days (ago) Last Used Substance Other:: 1x use last week Currently Displaying Signs/Symptoms of Drug Intoxication Withdrawal: No Any prior treatment program specific to substance use: No Have you been hit, kicked, punched, or otherwise hurt by someone within the past year? If so, by whom?: No Do you feel safe in your current relationship?: Yes Is there a partner from a previous relationship who is making you feel unsafe now?: No Are you made to feel afraid or neglected: No Advance Directives: No Advance Directives Information Provided: Yes Do you have thoughts of harming others: None Do you have a plan to hurt others: No Plan Recently lost weight without trying: No Nutrition Risks: No Nutritional Risk Poor oral hygiene: No service: No Sexual orientation: Straight/Heterosexual Meds Allergies Allergy/AdvReac Type Severity Reaction Status Date / Time trazodone Allergy Shortness Verified 09/10/21 18:36 of Breath Active Medications: Current Medications Hydromorphone HCl (Hydromorphone Hcl 0.5 Mg/0.5 Ml Syringe) 0.5 mg IVPUSH Q3H PRN; Protocol PRN Reason: Pain, Severe (Pain Scale 7-10) Last Admin: 01/14/22 19:46 Dose: 0.5 mg Dextrose/Lactated Ringer's (D5lr) 1,000 mls @ 125 mls/hr IVCONT .Q8H [place] Last Admin: 01/14/22 19:46 Dose: 125 mls/hr Piperacillin Sod/Tazobactam (Sod 3.375 gm/ Sodium Chloride) 50 mls @ 100 mls/hr IV Q6H [facility] Last Infusion: 01/14/22 18:43 Dose: Infused Ondansetron HCl (Ondansetron Hcl 4 Mg/2 Ml Vial) 4 mg IVPUSH QID PRN PRN Reason: Nausea Oxycodone HCl (Oxycodone Hcl Immed Release 5 Mg Tablet) 5 mg PO Q6H PRN PRN Reason: Pain, Moderate (Pain Scale 4-6 Sodium Chloride (0.9 % Sodium Chloride Flush 3 Ml Syringe) 3 ml IVFLUSH QSHIFT [facility] Last Admin: 01/14/22 18:02 Dose: Not Given Home Medications Medication Instructions Recorded Confirmed Last Taken Type albuterol sulfate 90 mcg/actuation 2 puff inhalation Q4-6H PRN 08/03/20 01/14/22 Unknown History aerosol inhaler wheezing allopurinol 100 mg tablet 1 tab PO DAILY 09/06/21 01/14/22 Unknown History atorvastatin 40 mg tablet 1 tab PO DAILY 09/06/21 01/14/22 Unknown History clonazepam 1 mg tablet 1 tab PO DAILY PRN insomnia 09/06/21 01/14/22 Unknown History diltiazem HCl 120 mg capsule,24 1 cap PO DAILY 09/06/21 01/14/22 Unknown History hr,extended release (Tiadylt ER) famotidine 40 mg tablet 1 tab PO BID PRN heartburn 09/06/21 01/14/22 Unknown History losartan 100 mg tablet 1 tab PO DAILY 09/06/21 01/14/22 Unknown History risperidone 2 mg tablet 1 tab PO BEDTIME 09/06/21 01/14/22 Unknown History Physical Exam Vital Signs: Vital Signs: Last Vital Signs Temp 98.7 F 01/14/22 16:37 Pulse 104 H 01/14/22 16:37 Resp 19 01/14/22 16:37 BP 122/86 01/14/22 16:37 Pulse Ox 99 01/14/22 16:37 O2 Del Method 01/14/22 16:37 BMI result Body Mass Index 36.1 Const: General: cooperative and no acute distress Nutritional Appearance: well nourished Orientation/consciousness: patient oriented x3 Limitations: no limitations HEENT: Head: Yes normocephalic and Yes atraumatic Ears: hearing grossly normal bilaterally Resp: Effort & Inspection: normal respiratory effort, no audible wheezes, no cough and no respiratory distress Cardio: Jugular venous distension: no JVD GI: Inspection: Yes normal to inspection Palpation (GI): Soft to palpation, nontender, no guarding, not rigid and No hepatosplenomegaly present Percussion: Yes normal to percussion Auscultation: normal bowel sounds Rectal Exam - Male: Yes deferred Skin: Other: Warm, dry, no rash , normal color Neuro: General: patient oriented x3 Extrem: General: Yes no clubbing, cyanosis or edema Results Results Labs: Short CBC 01/14/22 Range/Units 10:41 WBC 10.6 (4.8-10.8) X10*3/uL Hgb 13.9 L (14.0-18.0) g/dl Hct 42.9 (42.0-52.0) % Plt Count 268 (160-400) X10*3/uL BMP 01/14/22 10:41 Sodium 141 Potassium 3.9 Chloride 101 Carbon Dioxide 31 H BUN 14 Creatinine 1.16 Calcium 9.2 Liver Function 01/14/22 Range/Units 10:41 Total Bilirubin 0.4 (0.0-1.0) mg/dL AST 9 (5-37) U/L ALT 11 (0-40) U/L Alkaline Phosphatase 77 (39-117) U/L Albumin 4.5 (3.5-5.0) g/dL Assessment and Plan (1) Acute cholecystitis due to biliary calculus: Status: Acute Plan 51-year-old male patient presenting with complaints of right upper quadrant abdominal pain felt to be compatible with biliary colic. Admitted to the hospital under the surgical service placed at bowel rest with IV antibiotics. This morning however he feels much improved with no abdominal pain, nausea or vomiting. We discussed proceeding to surgery verses restarting diet with discharged to home. He is very hungry would like to try a diet if he tolerates the diet he may be able to be discharged later today. He understands and agrees with the plan. Time Spent With Patient Time: Total time managing care of this patient today ____ minutes. Quality Stroke Does the patient have a stroke diagnosis?: No VTE Prior VTE?: No VTE Risk Level:: Surgical - moderate VTE Device Contraindication: N/A - Device Ordered VTE Drug Contraindication: Treatment Not Indicated Procedures Date of Service Date of Service: 01/15/22
[2022-01-14 20:48] VITALS: BMI 35.1
[2022-01-14] MEDS: 0.9 % Sodium Chloride Flush 3 ML SYRINGE IVFLUSH (21:03)
[2022-01-14] MEDS: oxyCODONE HCl Immed Release 5 MG TABLET PO (21:03)
[2022-01-14 23:44] VITALS: BP 113/78; PULSE 84; RESP 16; TEMP 36.2; O2SAT 97
[2022-01-15 03:15] VITALS: BP 94/62; PULSE 81; RESP 18; TEMP 37.4; O2SAT 96
[2022-01-15] MEDS: Piperacillin Sodium/Tazobactam 3.375 GM in 0.9 % Sodium Chloride 50 ML IV ×2 (03:26→09:13)
[2022-01-15] MEDS: Dextrose 5 % and Lactated Ring 1,000 ML 125 ML IVCONT (06:37)
[2022-01-15 07:03] LABS: MANUAL DIFF FLAG NO
[2022-01-15 07:10] LABS: Basophils Absolute Auto 0.1 X10*3/uL (0.0-0.2); Basophils Percent Auto 0.4 % (0-2); Eosinophils Absolute Auto 0.2 X10*3/uL (0.0-0.4); Eosinophils Percent Auto 1.3 % (0-4); Hematocrit 41.8 % (42.0-52.0); Hemoglobin 13.7 g/dl (14.0-18.0); Imm Gran Abs Auto 0.06 X10*3/uL (0.00-0.03); Imm Gran Pct Auto 0.5 % (0.0-0.4); Lymphocytes Absolute Auto 2.5 X10*3/uL (1.2-4.9); Lymphocytes Percent Auto 20.7 % (20-40); Mean Corpuscular HGB Conc 32.8 g/dl (31.0-36.0); Mean Corpuscular Volume 82.4 fL (80.0-98.0); Mean Platelet Volume 9.9 fL (9.4-12.4); Monocytes Absolute Auto 0.9 X10*3/uL (0.1-1.2); Monocytes Percent Auto 7.3 % (2-11); Neutrophils Absolute Auto 8.5 x10*3/uL (2.0-8.3); Neutrophils Percent Auto 69.8 % (45-73); Platelet Count 266 X10*3/uL (160-400); Red Blood Count 5.07 X10*6/uL (4.60-5.80); Red Cell Distribution Width 14.1 % (11.0-16.0); White Blood Count 12.2 X10*3/uL (4.8-10.8)
[2022-01-15 07:32] LABS: Anion Gap 13 (12-20); Blood Urea Nitrogen 11 mg/dL (9-16); Carbon Dioxide 29 mmol/L (22-29); Chloride 101 mmol/L (96-108); Creatinine Clr Calc Pharmacy 86.6; Estimated Glomerular Filt Rate > 60; Glucose Random 98 mg/dL (60-115); Potassium 3.7 mmol/L (3.3-5.1); Sodium 139 mmol/L (135-145)
[2022-01-15 08:00] VITALS: BP 134/87; PULSE 91; RESP 17; TEMP 36.8; O2SAT 96
[2022-01-15] MEDS: oxyCODONE HCl Immed Release 5 MG TABLET PO (09:15)
[2022-01-15] MEDS: 0.9 % Sodium Chloride Flush 3 ML SYRINGE IVFLUSH (09:16)
--- NOTE | 2022-01-15 10:05 | P.CONHOSP_ITS ---
History of Present Illness Data of Consult Service Date: 01/15/22 Requesting physician: Xavier Soriano Primary Care Provider: [facility] HPI Reason for consult: medical management, cocaine abuse, RBBB 51 year old male with history schizophrenia with cocaine induced psychosis, d epression, non-insulin dependent type 2 diabetes, hypertension, chronic gout, mild intermittent asthma, ROCHELLE noncompliant with CPAP, HLD admitted to general surgery with consult placed to hospitalist service for medical management of chronic illness, cocaine use, RBBB, and preop. Patient denies any recent cocaine use, states was several months ago, no Utox performed in ED. Does endorse intermittent sob/wheezing both at rest and with exertion. Resolves with albuterol use. He is able to climb a flight of stairs without difficulty. No history CVD or CHF. Denies orthopnea, PND, lightheadedness, palpitations, abd pain, n/v, chest pain. No edema/recent weight gain. CXR in ED unremarkable. EKG showing NXR, rate 79 with possible left atrial enlargement, RBBB, QTc 502. RBBB not new. Renal function, electrolytes normal, though mag not evaluated in ED. Reports 2/10 RUQ and LLQ pain, no other complaints. Reports to me no history smoking, however reported smoking 4 cigarettes daily to ER staff as well as occassional MJ use. No etoh use. Review of Systems Review of Systems: General: No fevers, malaise, unintentional weight loss Cardiovascular: No chest pain, palpitations, or leg edema Respiratory:+sob. No wheezing, cough GI: +abd pain. 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 Depression Diabetes High cholesterol HTN (hypertension) Hypoglycemia Substance-induced psychotic disorder with delusions Family History Mother CAD (coronary artery disease) [place] (myocardial infarction) Diabetes Father CAD (coronary artery disease) [place] (myocardial infarction) Diabetes Testicular cancer Sister CAD (coronary artery disease) Social History Household Members: Significant Other Household Members Other:: 2 daughters and 1 son Housing: Apartment Do you presently have visiting nurse or other home services: No Alcohol intake: never Patient Tobacco Use Status: Current everyday Tobacco user Tobacco use type: Cigarette Cigarettes Per Day: 4 Second Hand Smoke Exposure: Yes Substance Use Type: Marijuana service: No Sexual orientation: Straight/Heterosexual Meds Allergies Allergy/AdvReac Type Severity Reaction Status Date / Time trazodone Allergy Shortness Verified 09/10/21 18:36 of Breath Active Medications: Current Medications Hydromorphone HCl (Hydromorphone Hcl 0.5 Mg/0.5 Ml Syringe) 0.5 mg IVPUSH Q3H PRN; Protocol PRN Reason: Pain, Severe (Pain Scale 7-10) Last Admin: 01/14/22 19:46 Dose: 0.5 mg Dextrose/Lactated Ringer's (D5lr) 1,000 mls @ 125 mls/hr IVCONT .Q8H [facility] Last Admin: 01/15/22 06:37 Dose: 125 mls/hr Piperacillin Sod/Tazobactam (Sod 3.375 gm/ Sodium Chloride) 50 mls @ 100 mls/hr IV Q6H [facility] Last Infusion: 01/15/22 10:02 Dose: Infused Ondansetron HCl (Ondansetron Hcl 4 Mg/2 Ml Vial) 4 mg IVPUSH QID PRN PRN Reason: Nausea Oxycodone HCl (Oxycodone Hcl Immed Release 5 Mg Tablet) 5 mg PO Q6H PRN PRN Reason: Pain, Moderate (Pain Scale 4-6 Last Admin: 01/15/22 09:15 Dose: 5 mg Sodium Chloride (0.9 % Sodium Chloride Flush 3 Ml Syringe) 3 ml IVFLUSH QSHIFT [facility] Last Admin: 01/15/22 09:16 Dose: 3 ml Home Medications Medication Instructions Recorded Confirmed Last Taken Type albuterol sulfate 90 mcg/actuation 2 puff inhalation Q4-6H PRN 08/03/20 01/14/22 Unknown History aerosol inhaler wheezing allopurinol 100 mg tablet 1 tab PO DAILY 09/06/21 01/14/22 Unknown History atorvastatin 40 mg tablet 1 tab PO DAILY 09/06/21 01/14/22 Unknown History clonazepam 1 mg tablet 1 tab PO DAILY PRN insomnia 09/06/21 01/14/22 Unknown History diltiazem HCl 120 mg capsule,24 1 cap PO DAILY 09/06/21 01/14/22 Unknown History hr,extended release (Tiadylt ER) famotidine 40 mg tablet 1 tab PO BID PRN heartburn 09/06/21 01/14/22 Unknown History losartan 100 mg tablet 1 tab PO DAILY 09/06/21 01/14/22 Unknown History risperidone 2 mg tablet 1 tab PO BEDTIME 09/06/21 01/14/22 Unknown History Physical Exam Vital Signs and Narrative: Vital Signs: Last Vital Signs Temp 98.3 F 01/15/22 08:00 Pulse 91 01/15/22 08:00 Resp 17 01/15/22 08:00 BP 134/87 01/15/22 08:00 Pulse Ox 96 01/15/22 08:00 O2 Del Method 01/15/22 08:00 BMI result Body Mass Index 35.1 Constitutional - Awake and Alert, No apparent distress Eyes - PERRLA, EOMI Cardiovascular - S1S2, RRR, No edema Respiratory - Normal lung expansion, Normal respiratory effort, No respiratory distress, CTA bilaterally Gastrointestinal - Mild RUQ ttp, ND; +BS; No rebound or guarding Extremities - no calf tenderness bilaterally, no swelling Skin - Warm/Dry Neurological - Alert & oriented x3 Psychological - Appropriate affect Results Labs CBC and Chem 7: 01/15/22 06:47 01/15/22 06:47 Labs: Laboratory Results - last 24 hr 01/14/22 01/14/22 01/14/22 10:34 10:41 10:41 MCV 85.0 MCH 27.5 MCHC 32.4 RDW 13.9 Plt Count 268 MPV 10.4 Immature Gran % (Auto) 0.4 Neut % (Auto) 71.8 Lymph % (Auto) 21.5 [place] % (Auto) 4.6 Eos % (Auto) 1.0 Baso % (Auto) 0.7 Lymph # (Auto) 2.3 [place] # (Auto) 0.5 Eos # (Auto) 0.1 Baso # (Auto) 0.1 Abs Immat Gran (auto) 0.04 H Absolute Neuts (auto) 7.6 Absolute Nucleated RBC 0.000 Nucleated RBC % (auto) 0.0 Anion Gap 13 Estim Creat Clear Calc 88.7 Estimated GFR > 60 Random Glucose 148 H Calcium 9.2 Total Bilirubin 0.4 AST 9 ALT 11 Alkaline Phosphatase 77 Troponin I High Sens Total Protein 7.0 Albumin 4.5 Lipase 19 COVID-19 ([facility]I) Negative COVID-19 Clin Com See Note 01/14/22 01/15/22 01/15/22 10:41 06:47 06:47 MCV 82.4 MCH 27.0 MCHC 32.8 RDW 14.1 Plt Count 266 MPV 9.9 Immature Gran % (Auto) 0.5 H Neut % (Auto) 69.8 Lymph % (Auto) 20.7 [place] % (Auto) 7.3 Eos % (Auto) 1.3 Baso % (Auto) 0.4 Lymph # (Auto) 2.5 [place] # (Auto) 0.9 Eos # (Auto) 0.2 Baso # (Auto) 0.1 Abs Immat Gran (auto) 0.06 H Absolute Neuts (auto) 8.5 H Absolute Nucleated RBC 0.000 Nucleated RBC % (auto) 0.0 Anion Gap 13 Estim Creat Clear Calc 86.6 Estimated GFR > 60 Random Glucose 98 Calcium 9.0 Total Bilirubin AST ALT Alkaline Phosphatase Troponin I High Sens 4.1 Total Protein Albumin Lipase COVID-19 ([facility]I) COVID-19 Clin Com Imaging Radiologist's Impressions: Impressions Chest X-Ray 01/14/22 11:45 IMPRESSION: No acute cardiopulmonary process. Abdomen/Pelvis CT 01/14/22 11:54 IMPRESSION: Question abnormal appearing gallbladder with stranding of the pericholecystic fat and small amount of fluid. No gallstone seen by CT. Follow-up ultrasound recommended. Small nonobstructing bilateral renal stones. Small right renal cyst. Mild diverticulosis of the colon. Fleischner guidelines were followed. Abdomen Ultrasound 01/14/22 14:07 IMPRESSION: Cholelithiasis without evidence for acute cholecystitis correlating with CT findings. Assessment and Plan (1) Acute cholecystitis due to biliary calculus: Status: Acute Plan 51 year old male with history schizophrenia with cocaine induced psychosis, depression, non-insulin dependent type 2 diabetes, hypertension, chronic gout, mild intermittent asthma, ROCHELLE noncompliant with CPAP, HLD admitted to general surgery with consult placed to hospitalist service for medical management of chronic illness, cocaine use, RBBB, and preop.? #Cholecystitis -Plan per general surgery -Continue zosyn, pain management -Reviewed progress note from surgery. Pt will eat and if tolerated, will discharge home, rather than undergo surgery #T2DM non insulin dependent without hyperglycemia -Controlled -Diabetic diet #HTN- reasonably controlled -Continue home meds #HLD -Continue statin #Gout -Continue allopurinol #Schizophrenia -Continue risperdal -QTc slightly prolonged on EKG. Mag 2.1 #Mild intermittent asthma without exacerbation -albuterol prn #polysubstance abuse -Drug screen +cocaine, +opiates (given oxycodone and dilaudid), +benzos -Pt denies current use. Counseling offered #ROCHELLE- noncompliant with CPAP -Counseled on importance of CPAP usage -Counseled on weight loss efforts #Pre-op -After review of surgery progress note, if pt tolerates diet will discharge home without surgical procedure. If proceeding with procedure would get echocardiogram pre-op given hx cocaine use as well as his intermittent sob, though this seems consistent with his asthma. There is no acute exacerbation at this time. He is euvolemic appearing on exam with neg CXR without any history known CAD, CHF. Diabetes is non insulin dependent. Anesthesia to evaluate op risk with ROCHELLE (noncompliant with CPAP.) RBBB is chronic and should not increase surgical risk. QTc slightly elevated, but improved from prior EKG's. Magnesium normal. Will continue following in the event patient is not discharged home Time Spent With Patient Time: Total time managing care of this patient today ____ minutes.
[2022-01-15 10:48] LABS: Magnesium 2.1 mg/dL (1.6-2.6)
[2022-01-15 15:44] LABS: Amphetamine Screen Urine Not Detected (Not Detect); Barbiturates, Urine Not Detected (Not Detect); Benzodiazepines Screen Urine POSITIVE (Not Detect); Cannabinoid Screen Urine Not Detected (Not Detect); Cocaine Screen Urine POSITIVE (Not Detect); Fentanyl, urine Not Detected (Not Detect); Opiate Screen Urine POSITIVE (Not Detect); Phencyclidine Screen Urine Not Detected (Not Detect)
--- NOTE | 2022-01-16 07:22 | PM.DS ---
DS: Providers Provider Date of Service: 01/15/22 Date of admission: 01/14/22 16:01 Date of discharge: 01/15/22 Primary care physician: [facility] Admitting clinician: Xavier Soriano Consults: 01/14/22 16:09 Consult to Hospitalist Routine Consulting Provider: Hospitalist Reason For Exam: acute cholecystitis, cocaine abuse, RBBB, preop Attending physician on discharge: Xavier Soriano DS: Diagnosis Discharge Diagnosis (1) Biliary colic: Status: Acute DS: Summary Status at Discharge Cognitive/behavioral status at discharge: Ashu Mcnally is a 51 year old male?presenting with complaints of abdominal pain in the right upper quadrant for 6 hours prior to presentation to the emergency department.? He denies a previous history of similar pain and reports that the pain was constant and sharp.? He has a past history of schizophrenia and cocaine use disorder.? Pain is mainly in the right upper quadrant without significant migration.? He is not clear of any inciting events, aggravating or relieving factors.? Workup in the emergency department did reveal enlarged gallbladder with some stones the neck of the gallbladder.? Findings were suggestive of biliary colic.? He was admitted to the surgical service for further management.? On the 2nd day of hospitalization he reported improvement in his abdominal pain with no nausea or vomiting. He reported being hungry and would like to try food. He was subsequently advanced to a regular low-fat diet and tolerated this very well. After tolerating a regular diet the patient requested to be discharged to home. He was discharged to home in stable condition with plans to follow-up in the office in 1 week. He is welcome to call sooner for increased pain. Functional status at discharge: independent ambulation Overall status at discharge: patient is back to baseline Time Spent with Patient Time attestation: Total time managing care of this patient today ____ minutes. Discharge coordination time: Less than 30 minutes Quality: Safe Use of Opioids Does Pt have an Active Cancer Diagnosis on the Problem List?: No Quality: Stroke Does the patient have a stroke diagnosis?: No Physical Exam Vital Signs: Vital Signs: Last Vital Signs Temp 98.3 F 01/15/22 08:00 Pulse 91 01/15/22 08:00 Resp 17 01/15/22 08:00 BP 134/87 01/15/22 08:00 Pulse Ox 96 01/15/22 08:00 O2 Del Method 01/15/22 08:00 BMI result Body Mass Index 35.1 Const: General: cooperative and no acute distress Nutritional Appearance: well nourished Orientation/consciousness: patient oriented x3 Limitations: no limitations HEENT: Head: Yes normocephalic and Yes atraumatic Ears: hearing grossly normal bilaterally Resp: Effort & Inspection: normal respiratory effort, no audible wheezes, no cough and no respiratory distress Cardio: Jugular venous distension: no JVD GI: Inspection: Yes normal to inspection Palpation (GI): Soft to palpation, nontender, no guarding, not rigid and No hepatosplenomegaly present Percussion: Yes normal to percussion Auscultation: normal bowel sounds Rectal Exam - Male: Yes deferred Skin: Other: Warm, dry, no rash , normal color Neuro: General: patient oriented x3 Extrem: General: Yes no clubbing, cyanosis or edema DS: Data Data Completed and Pending Completed studies during hospitalization [Text1]: Procedures Inspection of Spinal Canal, Percutaneous Approach (08/04/20) Labs on day of discharge: Laboratory Results - last 24 hr 01/15/22 01/15/22 06:47 14:40 Sodium 139 Potassium 3.7 Chloride 101 Carbon Dioxide 29 Anion Gap 13 BUN 11 D Creatinine 1.17 Estim Creat Clear Calc 86.6 Estimated GFR > 60 Random Glucose 98 Calcium 9.0 Magnesium 2.1 Urine Opiates Screen POSITIVE H Urine Fentanyl Screen Not Detected Ur Barbiturates Screen Not Detected Ur Phencyclidine Scrn Not Detected Ur Amphetamines Screen Not Detected U Benzodiazepines Scrn POSITIVE H Urine Cocaine Screen POSITIVE H U Marijuana (THC) Screen Not Detected Imaging CT scan - abdomen: Radiologist's impression: ITS Impressions Chest X-Ray 01/14/22 11:45 IMPRESSION: No acute cardiopulmonary process. Abdomen/Pelvis CT 01/14/22 11:54 IMPRESSION: Question abnormal appearing gallbladder with stranding of the pericholecystic fat and small amount of fluid. No gallstone seen by CT. Follow-up ultrasound recommended. Small nonobstructing bilateral renal stones. Small right renal cyst. Mild diverticulosis of the colon. Fleischner guidelines were followed. Abdomen Ultrasound 01/14/22 14:07 IMPRESSION: Cholelithiasis without evidence for acute cholecystitis correlating with CT findings. Discharge Plan Discharge Anticipated Discharge Date/Time: 01/15/22 15:47 Patient Disposition: Home, Self-Care Discharge Diagnosis: Bilary colic Referrals: [facility] [Primary Care Provider] - 1 Week Xavier Soriano MD [Physician] - 1 Week Discharge Medications: Continued albuterol sulfate 90 mcg/actuation HFA aerosol inhaler 2 puff inhalation Q4-6H PRN (Reason: wheezing) ibuprofen 600 mg Tablet 600 mg PO Q8H PRN (Reason: Pain, Severe (Pain Scale 7-10)) Qty: 30 0RF famotidine 40 mg tablet 1 tab PO BID PRN (Reason: heartburn) clonazepam 1 mg tablet 1 tab PO DAILY PRN (Reason: insomnia) risperidone 2 mg tablet 1 tab PO BEDTIME atorvastatin 40 mg tablet 1 tab PO DAILY allopurinol 100 mg tablet 1 tab PO DAILY diltiazem HCl [Tiadylt ER] 120 mg capsule,extended release 24 hr 1 cap PO DAILY losartan 100 mg tablet 1 tab PO DAILY Discharge Orders: Discharge Order (Routine); Ordered 01/15/22 Ordered By: Xavier Soriano Diet: Low fat, low cholesterol Activity on Discharge: As tolerated Stand Alone Forms: Patient Portal Discharge page Print Language: Luxembourgish Care Plan Goals: Resolution of abdominal pain Health Concerns: Abdominal pain and gallstones Plan of Treatment: Low fat diet Assessment: Biliary colic Patient Instructions: Low Fat Diet (DC) Discharge Date/Time: 01/15/22 16:22
== END 2022-01-15 16:22 | disposition home or self-care (01) ==
LOC: HO.ED 15:32 → HO.EDOVER 16:16 → HO.IMC 19:57
PROVIDERS: Physician Assistant; Admitting Provider Surgery; Emergency Provider Emergency Medicine; Visit Provider Surgery
DX: K80.00 Calculus of gallbladder with acute cholecystitis without obstruction (principal); E11.9 Type 2 diabetes mellitus without complications; F14.10 Cocaine abuse, uncomplicated; F17.210 Nicotine dependence, cigarettes, uncomplicated; I45.10 Unspecified right bundle-branch block; G47.33 Obstructive sleep apnea (adult) (pediatric); M10.9 Gout, unspecified; J45.20 Mild intermittent asthma, uncomplicated; E78.5 Hyperlipidemia, unspecified; F19.90 Other psychoactive substance use, unspecified, uncomplicated; Z20.822 Contact with and (suspected) exposure to COVID-19; Z91.199 Patient's noncompliance with other medical treatment and regimen due to unspecified reason; Z71.6 Tobacco abuse counseling; Z79.899 Other long term (current) drug therapy
CPT/HCPCS: 36415; 71045; 74177; 76705; 80048; 80053; 80307; 83690; 83735; 84484; 85025; 87635; 93005; 99219; 99285; J1170; J2250; J2270; J2543; J2765; Q9967

== ENCOUNTER 2022-02-21 07:23 | Inpatient (IN) | payer MEDICAID, SELFPAY ==
--- NOTE | 2022-02-21 | ECG_ITS ---
Test Reason : cocaine abuse Blood Pressure : / mmHG Vent. Rate : 084 BPM Atrial Rate : 084 BPM P-R Int : 146 ms QRS Dur : 146 ms QT Int : 424 ms P-R-T Axes : 054 021 006 degrees QTc Int : 501 ms Normal sinus rhythm Right bundle branch block Abnormal ECG When compared with ECG of 14-JAN-2022 10:24, No significant change was found Referred By: Codi Washington Electronically Signed By:KONRAD RAMIREZ MD
--- NOTE | ~2022-02-21 | US_ITS ---
EXAMINATION: US ABDOMEN LIMITED CLINICAL INFORMATION: Right upper quadrant pain. COMPARISON: Limited abdominal ultrasound dated 01/14/2022. TECHNIQUE: Real-time imaging of the right upper quadrant abdominal viscera. FINDINGS: PANCREAS: Visualized portions unremarkable. LIVER: Unremarkable. GALLBLADDER: Mural thickening is seen measuring up to 1.3 cm at the level the fundus. Mild dependent sludge and small gallstones are seen. Mild pericholecystic fluid. Color Doppler showed minimal associated vascularity. COMMON BILE DUCT: Normal in caliber measuring 0.4 cm in diameter. US/US abdomen limited IMPRESSION: Cholelithiasis with increased gallbladder mural thickening and pericholecystic fluid most consistent with acute cholecystitis.
[2022-02-21 07:30] VITALS: BP 186/122; PULSE 80; RESP 14; TEMP 36.6; O2SAT 100
[2022-02-21 07:35] VITALS: BP 178/108; PULSE 88; O2SAT 99; BMI 30.4
--- NOTE | 2022-02-21 07:37 | ED.ABDPAIN ---
HPI - Abdominal Pain General Chief Complaint: Abdominal Pain Stated Complaint: ABD PAIN W/VOMITING PER EMS Time Seen by Provider: 02/21/22 07:30 Source: patient Mode of arrival: EMS Limitations: no limitations History of Present Illness HPI narrative: Patient presented to the ED withc/o abdominal pain,he has hx of gallstones,also c/o vomiting MD elicited complaint: abdominal pain Pertinent past history: other (gallstones) Onset (ago): hour(s) (12) Pain Consistency: constant Location: RUQ Severity: moderate Quality: cramping Radiation: RUQ Migration to: no migration Exacerbating factors: nothing Relieving factors: nothing Related Data Home Medications Medication Instructions Recorded Confirmed albuterol sulfate 90 mcg/actuation 2 puff inhalation Q4-6H PRN 08/03/20 01/14/22 aerosol inhaler wheezing allopurinol 100 mg tablet 1 tab PO DAILY 09/06/21 01/14/22 atorvastatin 40 mg tablet 1 tab PO DAILY 09/06/21 01/14/22 clonazepam 1 mg tablet 1 tab PO DAILY PRN insomnia 09/06/21 01/14/22 diltiazem HCl 120 mg capsule,24 1 cap PO DAILY 09/06/21 01/14/22 hr,extended release (Tiadylt ER) famotidine 40 mg tablet 1 tab PO BID PRN heartburn 09/06/21 01/14/22 losartan 100 mg tablet 1 tab PO DAILY 09/06/21 01/14/22 risperidone 2 mg tablet 1 tab PO BEDTIME 09/06/21 01/14/22 Previous Rx's Medication Instructions Recorded ibuprofen 600 mg tablet 600 mg PO Q8H PRN Pain, Severe 08/10/20 (Pain Scale 7-10) #30 tabs Allergies Allergy/AdvReac Type Severity Reaction Status Date / Time trazodone Allergy Shortness Verified 09/10/21 18:36 of Breath Review of Systems Constitutional: Reports no additional constitutional complaints Eyes: Reports no additional eye complaints Reports system reviewed and no additional complaints, except as documented Cardiovascular: Reports no additional cardiovascular complaints Respiratory: Reports no additional respiratory complaints Gastrointestinal: Reports abdominal pain 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 Depression Diabetes High cholesterol HTN (hypertension) Hypoglycemia Substance-induced psychotic disorder with delusions Family History Family History Mother CAD (coronary artery disease) ME (myocardial infarction) Diabetes Father CAD (coronary artery disease) ME (myocardial infarction) Diabetes Testicular cancer Sister CAD (coronary artery disease) Social History Social History Household Members: Significant Other Household Members Other:: 2 daughters and 1 son Housing: Apartment Do you presently have visiting nurse or other home services: No Alcohol intake: never Patient Tobacco Use Status: Current everyday Tobacco user Tobacco use type: Cigarette Cigarettes Per Day: 4 Second Hand Smoke Exposure: Yes Substance Use Type: Marijuana Advance Directives: No Advance Directives Information Provided: No service: No Sexual orientation: Straight/Heterosexual Physical Exam ED Vital Signs: Vital Signs - 24 hr 02/21/22 07:30 02/21/22 10:16 Temperature 97.9 F 98.5 F Pulse Rate 80 82 Respiratory Rate 14 14 Blood Pressure 186/122 H 160/134 H Pulse Oximetry 100 100 Oxygen Delivery Method Room Air Room Air BMI result Body Mass Index 30.4 Const General: cooperative Nutritional Appearance: average body habitus HENMT Head: Yes normal to inspection General nose exam: Normal external nose present Face and sinus: Yes normal facial exam Mouth: Normal oral and palatal mucosa present Neck Neck: Yes normal visual inspection Chest Chest palpation & inspection: normal inspection of the chest Resp Effort & Inspection: normal respiratory effort Auscultation: clear to auscultation bilaterally Cardio Jugular venous distension: no JVD Rate: regular rate Rhythm: regular rhythm GI Inspection: Yes normal to inspection Palpation (GI): Soft to palpation and Tenderness to palpation present (GI) (rt upper quadrant tenderness) Auscultation: normal bowel sounds Skin General skin exam: no rashes or lesions noted and elasticity normal Course Reevaluation(s) Reevaluation #1: seen by surgery Dr Soriano will admit pt Time: 11:42 Medical Decision Making Medical Decision Making MDM Narrative: presented with abdominal pain known gallstones will get labs/US Differential Diagnosis Differential Diagnoses: The differential diagnosis associated with the presentation includes cholecystitis/biliary colic/diverticulitis Admission/Observation Consideration of admission/observation: Escalation of care including admission/observation considered Consult Healthcare Provider Management of the patient was discussed with: Ophthalmology Surgical Technician Spoke with Dr Soriano here in ED Lab Data MDM Lab Attestation statement: I reviewed the patient's lab results. 02/21/22 07:56 02/21/22 07:56 Labs: Lab Results 02/21/22 02/21/22 02/21/22 Range/Units 07:44 07:44 07:56 WBC 13.7 H (4.8-10.8) X10*3/uL RBC 5.11 (4.60-5.80) X10*6/uL Hgb 13.8 L (14.0-18.0) g/dl Hct 42.6 (42.0-52.0) % MCV 83.4 (80.0-98.0) fL MCH 27.0 (27.0-33.0) pg MCHC 32.4 (31.0-36.0) g/dl RDW 13.8 (11.0-16.0) % Plt Count 279 (160-400) X10*3/uL MPV 9.7 (9.4-12.4) fL Immature Gran % (Auto) 0.5 H (0.0-0.4) % Neut % (Auto) 78.5 H (45-73) % Lymph % (Auto) 15.3 L (20-40) % Gates % (Auto) 4.0 (2-11) % Eos % (Auto) 1.2 (0-4) % Baso % (Auto) 0.5 (0-2) % Lymph # (Auto) 2.1 (1.2-4.9) X10*3/uL Gates # (Auto) 0.6 (0.1-1.2) X10*3/uL Eos # (Auto) 0.2 (0.0-0.4) X10*3/uL Baso # (Auto) 0.1 (0.0-0.2) X10*3/uL Abs Immat Gran (auto) 0.07 H (0.00-0.03) X10*3/uL Absolute Neuts (auto) 10.8 H (2.0-8.3) x10*3/uL Absolute Nucleated RBC 0.000 (0.0-0.012) X10*3/uL Nucleated RBC % (auto) 0.0 (0.0-0.2) /100WBC Sodium (135-145) mmol/L Potassium (3.3-5.1) mmol/L Chloride (96-108) mmol/L Carbon Dioxide (22-29) mmol/L Anion Gap (12-20) BUN (9-16) mg/dL Creatinine (0.5-1.4) mg/dL Estim Creat Clear Calc Estimated GFR Random Glucose (60-115) mg/dL Calcium (8.4-10.2) mg/dL Total Bilirubin (0.0-1.0) mg/dL AST (5-37) U/L ALT (0-40) U/L Alkaline Phosphatase (39-117) U/L Total Protein (6.5-8.0) g/dL Albumin (3.5-5.0) g/dL Urine Color Yellow Urine Appearance Clear Urine pH 6.0 (5.0-9.0) Ur Specific [place] 1.025 (1.005-1.025) Urine Protein Negative (Neg-Trace) mg/dL Urine Glucose (UA) Negative (Negative) mg/dL Urine Ketones Negative (Negative) mg/dL Urine Blood Negative (Negative) Urine Nitrite Negative (Negative) Ur Leukocyte Esterase Negative (Negative) Urine Opiates Screen Not Detected (Not Detect) Urine Fentanyl Screen Not Detected (Not Detect) Ur Barbiturates Screen Not Detected (Not Detect) Ur Phencyclidine Scrn Not Detected (Not Detect) Ur Amphetamines Screen Not Detected (Not Detect) U Benzodiazepines Scrn Not Detected (Not Detect) Urine Cocaine Screen POSITIVE H (Not Detect) U Marijuana (THC) Screen POSITIVE H (Not Detect) 02/21/22 Range/Units 07:56 WBC (4.8-10.8) X10*3/uL RBC (4.60-5.80) X10*6/uL Hgb (14.0-18.0) g/dl Hct (42.0-52.0) % MCV (80.0-98.0) fL MCH (27.0-33.0) pg MCHC (31.0-36.0) g/dl RDW (11.0-16.0) % Plt Count (160-400) X10*3/uL MPV (9.4-12.4) fL Immature Gran % (Auto) (0.0-0.4) % Neut % (Auto) (45-73) % Lymph % (Auto) (20-40) % Gates % (Auto) (2-11) % Eos % (Auto) (0-4) % Baso % (Auto) (0-2) % Lymph # (Auto) (1.2-4.9) X10*3/uL Gates # (Auto) (0.1-1.2) X10*3/uL Eos # (Auto) (0.0-0.4) X10*3/uL Baso # (Auto) (0.0-0.2) X10*3/uL Abs Immat Gran (auto) (0.00-0.03) X10*3/uL Absolute Neuts (auto) (2.0-8.3) x10*3/uL Absolute Nucleated RBC (0.0-0.012) X10*3/uL Nucleated RBC % (auto) (0.0-0.2) /100WBC Sodium 143 (135-145) mmol/L Potassium 4.2 (3.3-5.1) mmol/L Chloride 105 (96-108) mmol/L Carbon Dioxide 28 (22-29) mmol/L Anion Gap 14 (12-20) BUN 20 H (9-16) mg/dL Creatinine 1.27 (0.5-1.4) mg/dL Estim Creat Clear Calc 74.4 Estimated GFR 60 Random Glucose 127 H (60-115) mg/dL Calcium 9.7 D (8.4-10.2) mg/dL Total Bilirubin 0.3 (0.0-1.0) mg/dL AST 9 (5-37) U/L ALT 12 (0-40) U/L Alkaline Phosphatase 79 (39-117) U/L Total Protein 7.1 (6.5-8.0) g/dL Albumin 4.3 (3.5-5.0) g/dL Urine Color Urine Appearance Urine pH (5.0-9.0) Ur Specific [place] (1.005-1.025) Urine Protein (Neg-Trace) mg/dL Urine Glucose (UA) (Negative) mg/dL Urine Ketones (Negative) mg/dL Urine Blood (Negative) Urine Nitrite (Negative) Ur Leukocyte Esterase (Negative) Urine Opiates Screen (Not Detect) Urine Fentanyl Screen (Not Detect) Ur Barbiturates Screen (Not Detect) Ur Phencyclidine Scrn (Not Detect) Ur Amphetamines Screen (Not Detect) U Benzodiazepines Scrn (Not Detect) Urine Cocaine Screen (Not Detect) U Marijuana (THC) Screen (Not Detect) Independent Interpretation I performed an independent interpretation of an: Ultrasound Interpretation: I personally reviewed US agree with radiology reading Tests considered The following testing was considered but not selected: ct abdomen not done because US diagnostic Chronic Conditions Patient?s care impacted by: Other (substance abuse) Social Determinants Patient?s care significantly limited by Social Determinants of Health including: Other Social Determinant of Health (substance abuse) Medications Administered Discontinued Medications Generic Name Dose Route Start Last Admin Trade Name Freq PRN Reason Stop Dose Admin Ketorolac Tromethamine 30 mg 02/21/22 07:51 02/21/22 08:25 Ketorolac Tromethamine 30 Mg/Ml Vial IVPUSH 02/21/22 07:52 30 mg ONCE ONE Administration Lorazepam 1 mg 02/21/22 07:50 02/21/22 08:24 Lorazepam 2 Mg/Ml Vial IVPUSH 02/21/22 07:51 1 mg ONCE ONE Administration Discharge Plan Discharge Clinical Impression: Cholecystitis, Cocaine abuse Patient Disposition: Admitted As Inpatient
[2022-02-21 08:01] LABS: MANUAL DIFF FLAG NO
[2022-02-21 08:02] LABS: Appearance Urine Clear; Color Urine Yellow; Glucose Urine UA Negative (Negative); Leukocyte Esterase Urine Negative (Negative); Nitrite Urine Negative (Negative); Specific Gravity - Urine 1.025 (1.005-1.025); Urine Blood Negative (Negative); Urine Ketones Negative (Negative); Urine Protein Negative (Neg-Trace)
[2022-02-21 08:03] LABS: Basophils Absolute Auto 0.1 X10*3/uL (0.0-0.2); Basophils Percent Auto 0.5 % (0-2); Eosinophils Absolute Auto 0.2 X10*3/uL (0.0-0.4); Eosinophils Percent Auto 1.2 % (0-4); Hematocrit 42.6 % (42.0-52.0); Hemoglobin 13.8 g/dl (14.0-18.0); Imm Gran Abs Auto 0.07 X10*3/uL (0.00-0.03); Imm Gran Pct Auto 0.5 % (0.0-0.4); Lymphocytes Absolute Auto 2.1 X10*3/uL (1.2-4.9); Lymphocytes Percent Auto 15.3 % (20-40); Mean Corpuscular HGB Conc 32.4 g/dl (31.0-36.0); Mean Corpuscular Volume 83.4 fL (80.0-98.0); Mean Platelet Volume 9.7 fL (9.4-12.4); Monocytes Absolute Auto 0.6 X10*3/uL (0.1-1.2); Neutrophils Absolute Auto 10.8 x10*3/uL (2.0-8.3); Neutrophils Percent Auto 78.5 % (45-73); Platelet Count 279 X10*3/uL (160-400); Red Blood Count 5.11 X10*6/uL (4.60-5.80); Red Cell Distribution Width 13.8 % (11.0-16.0); White Blood Count 13.7 X10*3/uL (4.8-10.8)
[2022-02-21 08:18] LABS: Alanine Aminotransferase 12 U/L (0-40); Albumin Level 4.3 g/dL (3.5-5.0); Alkaline Phosphatase 79 U/L (39-117); Anion Gap 14 (12-20); Aspartate Amino Transferase 9 U/L (5-37); Bilirubin Total 0.3 mg/dL (0.0-1.0); Blood Urea Nitrogen 20 mg/dL (9-16); Calcium 9.7 mg/dL (8.4-10.2); Carbon Dioxide 28 mmol/L (22-29); Chloride 105 mmol/L (96-108); Creatinine Clr Calc Pharmacy 74.4; Estimated Glomerular Filt Rate 60; Glucose Random 127 mg/dL (60-115); Potassium 4.2 mmol/L (3.3-5.1); Sodium 143 mmol/L (135-145); Total Protein 7.1 g/dL (6.5-8.0)
[2022-02-21 08:19] LABS: Amphetamine Screen Urine Not Detected (Not Detect); Barbiturates, Urine Not Detected (Not Detect); Benzodiazepines Screen Urine Not Detected (Not Detect); Cannabinoid Screen Urine POSITIVE (Not Detect); Cocaine Screen Urine POSITIVE (Not Detect); Fentanyl, urine Not Detected (Not Detect); Opiate Screen Urine Not Detected (Not Detect); Phencyclidine Screen Urine Not Detected (Not Detect)
[2022-02-21] MEDS: LORazepam 2 MG/ML VIAL 1 MG IVPUSH (08:24)
[2022-02-21] MEDS: Ketorolac Tromethamine 30 MG/ML VIAL IVPUSH (08:25)
[2022-02-21 10:16] VITALS: BP 160/134; PULSE 82; RESP 14; TEMP 36.9; O2SAT 100
[2022-02-21] MEDS: 0.9 % Sodium Chloride 1,000 ML 200 ML IVCONT (11:51)
--- NOTE | 2022-02-21 11:51 | PM.HPGS ---
History of Present Illness History of Present Illness Date of Service: 02/21/22 Chief complaint: Acute cholecystitis, cholelithiasis Narrative: Ashu Mcnally is a 51 year old male returning to the hospital with complaints of abdominal pain throughout the upper abdomen. He was recently admitted on 01/14/2022 for similar symptoms which subsequently resolved without surgery. The pain began approximately 03:00 this morning and was very severe and associated with multiple episodes of vomiting. Pain is felt mainly in the upper abdomen, greatest in the right upper quadrant. Symptoms were very similar to his previous episode. Evaluation emergency department revealed tenderness in the right upper quadrant with Bangura sign. Laboratories revealed elevated WBC of 13.7. Liver function tests are normal. Ultrasound the abdomen revealed cholelithiasis with thickened gallbladder wall and pericholecystic fluid consistent with acute cholecystitis. He is admitted to the surgical service for further management of the acute cholecystitis. Review of Systems Review of Systems: Yes all other systems are reviewed and are negative Constitutional: Constitutional: Denies chills, Denies fever(s), Denies headache(s), Denies poor appetite and Denies weakness ENT: Denies headache(s) Cardiovascular: Cardiovascular: Denies chest pain, Denies irregular heart rhythm, Denies palpitations and Denies dyspnea Respiratory: Respiratory: Denies cough, Denies excessive phlegm production and Denies dyspnea Gastrointestinal: Gastrointestinal: Reports abdominal pain, Denies bloating, Denies change in bowel habits, Denies constipation, Denies heartburn, Denies diarrhea, Denies nausea and Denies vomiting Genitourinary: Genitourinary: Denies difficulty urinating and Denies urinary frequency Musculoskeletal: Musculoskeletal: Denies back pain, Denies muscle weakness and Denies numbness Integumentary/Breasts: Skin/Breast: Denies changing lesions and Denies unusual bruising Neurologic: Denies headache(s), Denies numbness, Denies paresthesias and Denies weakness Psychiatric: Psychiatric: Denies anxiety and Denies depression Endocrine: Endocrine: Denies palpitations Hematologic/Lymphatic: Hematologic/Lymphatic: Denies lymphadenopathy 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 Depression Diabetes High cholesterol HTN (hypertension) Hypoglycemia Substance-induced psychotic disorder with delusions Family History Family History Mother CAD (coronary artery disease) [place] (myocardial infarction) Diabetes Father CAD (coronary artery disease) [place] (myocardial infarction) Diabetes Testicular cancer Sister CAD (coronary artery disease) Social History Social History Household Members: Significant Other Household Members Other:: 2 daughters and 1 son Housing: Apartment Do you presently have visiting nurse or other home services: No Alcohol intake: never Patient Tobacco Use Status: Current everyday Tobacco user Tobacco use type: Cigarette Cigarettes Per Day: 4 Second Hand Smoke Exposure: Yes Substance Use Type: Marijuana Advance Directives: No Advance Directives Information Provided: No service: No Sexual orientation: Straight/Heterosexual Meds Allergies Allergy/AdvReac Type Severity Reaction Status Date / Time trazodone Allergy Shortness Verified 09/10/21 18:36 of Breath Active Medications: Current Medications Hydromorphone HCl (Hydromorphone Hcl 0.5 Mg/0.5 Ml Syringe) 0.5 mg IVPUSH Q3H PRN; Protocol PRN Reason: Pain, Severe (Pain Scale 7-10) Sodium Chloride (Ns) 1,000 mls @ 200 mls/hr IVCONT .Q5H [facility] Last Admin: 02/21/22 11:51 Dose: 200 mls/hr Acetaminophen (Ofirmev) 1,000 mg in 100 mls @ 400 mls/hr IV Q6H [place] Stop: 02/22/22 05:59 Dextrose/Lactated Ringer's (D5lr) 1,000 mls @ 125 mls/hr IVCONT .Q8H [place] Piperacillin Sod/Tazobactam (Sod 3.375 gm/ Sodium Chloride) 50 mls @ 100 mls/hr IV Q6H [place] Ondansetron HCl (Ondansetron Hcl 4 Mg/2 Ml Vial) 4 mg IVPUSH QID PRN PRN Reason: Nausea Oxycodone HCl (Oxycodone Hcl Immed Release 5 Mg Tablet) 5 mg PO Q6H PRN PRN Reason: Pain, Severe (Pain Scale 7-10) Pharmacy Consult (Consult Rx Perform Med Rec) 1 each MISCELLANE ONCE PRN PRN Reason: Consult order Sodium Chloride (0.9 % Sodium Chloride Flush 3 Ml Syringe) [facility] Z[facility] T[facility] (Zolpidem Tartrate 5 Mg Tablet) 5 mg PO BEDTIME PRN PRN Reason: Insomnia Home Medications Medication Instructions Recorded Confirmed Last Taken Type albuterol sulfate 90 mcg/actuation 2 puff inhalation Q4-6H PRN 08/03/20 01/14/22 Unknown History aerosol inhaler wheezing allopurinol 100 mg tablet 1 tab PO DAILY 09/06/21 01/14/22 Unknown History atorvastatin 40 mg tablet 1 tab PO DAILY 09/06/21 01/14/22 Unknown History clonazepam 1 mg tablet 1 tab PO DAILY PRN insomnia 09/06/21 01/14/22 Unknown History diltiazem HCl 120 mg capsule,24 1 cap PO DAILY 09/06/21 01/14/22 Unknown History hr,extended release (Tiadylt ER) famotidine 40 mg tablet 1 tab PO BID PRN heartburn 09/06/21 01/14/22 Unknown History losartan 100 mg tablet 1 tab PO DAILY 09/06/21 01/14/22 Unknown History risperidone 2 mg tablet 1 tab PO BEDTIME 09/06/21 01/14/22 Unknown History Physical Exam Vital Signs: Vital Signs: Last Vital Signs Temp 98.5 F 02/21/22 10:16 Pulse 82 02/21/22 10:16 Resp 14 02/21/22 10:16 BP 160/134 H 02/21/22 10:16 Pulse Ox 100 02/21/22 10:16 O2 Del Method 02/21/22 10:16 BMI result Body Mass Index 30.4 Const: General: cooperative and no acute distress Nutritional Appearance: well nourished Orientation/consciousness: patient oriented x3 Limitations: no limitations HEENT: Head: Yes normocephalic and Yes atraumatic Ears: hearing grossly normal bilaterally Resp: Effort & Inspection: normal respiratory effort, no audible wheezes, no cough and no respiratory distress Cardio: Jugular venous distension: no JVD GI: Inspection: Yes normal to inspection Palpation (GI): Soft to palpation, Tenderness to palpation present (GI) in the LUQ, in the RUQ and Bangura's sign positive, no guarding, not rigid and No hepatosplenomegaly present Percussion: Yes normal to percussion Auscultation: normal bowel sounds Rectal Exam - Male: Yes deferred Skin: Other: Warm, dry, no rash , normal color Neuro: General: patient oriented x3 Extrem: General: Yes no clubbing, cyanosis or edema Results Results Labs: Short CBC 02/21/22 Range/Units 07:56 WBC 13.7 H (4.8-10.8) X10*3/uL Hgb 13.8 L (14.0-18.0) g/dl Hct 42.6 (42.0-52.0) % Plt Count 279 (160-400) X10*3/uL BMP 02/21/22 07:56 Sodium 143 Potassium 4.2 Chloride 105 Carbon Dioxide 28 BUN 20 H Creatinine 1.27 Calcium 9.7 D Liver Function 02/21/22 Range/Units 07:56 Total Bilirubin 0.3 (0.0-1.0) mg/dL AST 9 (5-37) U/L ALT 12 (0-40) U/L Alkaline Phosphatase 79 (39-117) U/L Albumin 4.3 (3.5-5.0) g/dL Urine 02/21/22 Range/Units 07:44 Urine Color Yellow Urine Appearance Clear Urine pH 6.0 (5.0-9.0) Ur Specific [place] 1.025 (1.005-1.025) Urine Protein Negative (Neg-Trace) mg/dL Urine Glucose (UA) Negative (Negative) mg/dL Assessment and Plan (1) Cholecystitis: Status: Acute Plan 51-year-old male patient returning with complaints of abdominal pain in the right upper quadrant found on examination to have tenderness in the right upper quadrant with a positive Bangura sign. Laboratories revealed elevated WBC and ultrasound reveals multiple gallstones within the gallbladder and thickened gallbladder wall with pericholecystic fluid consistent with acute cholecystitis. I recommended laparoscopic or possible open cholecystectomy. After discussion of the procedure, risks, and alternatives, he consents to the surgery. He will be added onto the operative schedule for tomorrow. We will keep him on clear liquids today. NPO after midnight. Time Spent With Patient Time: Total time managing care of this patient today ____ minutes. Quality Stroke Does the patient have a stroke diagnosis?: No VTE Prior VTE?: No VTE Risk Level:: Surgical - moderate VTE Device Contraindication: N/A - Device Ordered VTE Drug Contraindication: Treatment Not Indicated Procedures Date of Service Date of Service: 02/21/22
[2022-02-21] MEDS: Piperacillin Sodium/Tazobactam 3.375 GM in 0.9 % Sodium Chloride 50 ML IV ×3 (11:57→21:21)
[2022-02-21 12:06] LABS: Lactic Acid 1.3 mmol/L (0.5-2.0)
[2022-02-21] MEDS: Acetaminophen 1,000 MG/100 ML PIGGYBACK 400 MG IV ×2 (12:22→17:26)
--- NOTE | 2022-02-21 12:23 | PC.NURSE ---
iv ofirmev hung per order, will start D5LR once ofirmiv has completed
[2022-02-21] MEDS: Dextrose 5 % and Lactated Ring 1,000 ML 125 ML IVCONT ×2 (12:48→21:21)
--- NOTE | 2022-02-21 12:48 | PC.NURSE ---
ivf started per order float nurse
--- NOTE | 2022-02-21 13:08 | PHA.MEDREC ---
Pharmacy Consult ? Medication Reconciliation Pharmacy has completed the medication reconciliation. Patient stated they were on sertraline and escitalopram, however claim history depicts a discontinuation of escitalopram and an initiation of sertraline. Patient also states using allopurinol for gout attacks, however haven't filled since 06/06/21. Patient states it is because they have transportation issues when getting to the pharmacy and getting their medications, but claim to still be on the medication.
--- NOTE | 2022-02-21 13:26 | PC.NURSE ---
pt did not take morning BP meds, BP elevated, Dr Soriano made aware. pt takes Losartan 100mg daily
[2022-02-21] MEDS: HYDROmorphone HCl 0.5 MG/0.5 ML SYRINGE IVPUSH ×3 (13:31→21:22)
[2022-02-21] MEDS: ondansetron HCL 4 MG/2 ML VIAL IVPUSH (13:31)
[2022-02-21 14:05] VITALS: BP 139/96; PULSE 77; RESP 17; TEMP 36.5; O2SAT 97
--- NOTE | 2022-02-21 14:07 | PC.NURSE ---
pt is a/o x 4 no sob/nevaeh noted vs 139/96-96.pt states that he does not want to take or refuses to take ambien because the last time he took med was a yr ago pt states that he lost his memory for 10hrs and got into a panic mode and broke all the electronic in his house and he became paranoid and hearing voices.. aware.
--- NOTE | 2022-02-21 14:50 | P.CONHOSP_ITS ---
History of Present Illness Data of Consult Service Date: 02/21/22 Requesting physician: Xavier Soriano Primary Care Provider: [facility] HPI 51 year old male with history schizophrenia with cocaine induced psychosis, depression, non-insulin dependent type 2 diabetes, hypertension, chronic gout, mild intermittent asthma, ROCHELLE noncompliant with CPAP, HLD admitted to general surgery with consult placed to hospitalist service for medical management of medical management and per-operative clearance. Utox positive for cocaine, marijuana. He states that he has only an occasional cocaine user and last use was 3 days ago. He does also endorse social cigarette smoking, no more than 5 cigarettes smoked in 1 week. He has no known history of cardiovascular disease, heart failure. However, does endorse shortness of breath at rest as well as with exertion including when ascending one flight of stairs. No orthopnea, PND. Denies any chest pain, lightheadedness, palpitations, nausea, vomiting. No rola ma/recent weight gain. CXR in ED unremarkable. EKG showing NSR, rate 84, RBBB. Mild leukocytosis of 13.7. Renal function, electrolytes normal, though mag not evaluated in ED. 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 Depression Diabetes High cholesterol HTN (hypertension) Hypoglycemia Substance-induced psychotic disorder with delusions Family History Mother CAD (coronary artery disease) [place] (myocardial infarction) Diabetes Father CAD (coronary artery disease) [place] (myocardial infarction) Diabetes Testicular cancer Sister CAD (coronary artery disease) Social History Household Members: Significant Other Household Members Other:: 2 daughters and 1 son Housing: Apartment Do you presently have visiting nurse or other home services: No Alcohol intake: current Alcohol intake frequency: holidays/special occasions only Patient Tobacco Use Status: Current everyday Tobacco user Tobacco use type: Cigarette Cigarettes Per Day: 4 Smoked in Last 30 Days: Yes Second Hand Smoke Exposure: Yes Use of substances other than those prescribed or required for medical reasons: No Substance Use Type: Marijuana Advance Directives: No Advance Directives Information Provided: No service: No Current occupational status: unemployed Sexual orientation: Straight/Heterosexual Meds Allergies Allergy/AdvReac Type Severity Reaction Status Date / Time trazodone Allergy Shortness Verified 09/10/21 18:36 of Breath Active Medications: Current Medications Hydromorphone HCl (Hydromorphone Hcl 0.5 Mg/0.5 Ml Syringe) 0.5 mg IVPUSH Q3H PRN; Protocol PRN Reason: Pain, Severe (Pain Scale 7-10) Last Admin: 02/21/22 13:31 Dose: 0.5 mg Acetaminophen (Ofirmev) 1,000 mg in 100 mls @ 400 mls/hr IV Q6H [place] Stop: 02/22/22 05:59 Last Infusion: 02/21/22 12:37 Dose: Infused Dextrose/Lactated Ringer's (D5lr) 1,000 mls @ 125 mls/hr IVCONT .Q8H [place] Last Admin: 02/21/22 12:48 Dose: 125 mls/hr Piperacillin Sod/Tazobactam (Sod 3.375 gm/ Sodium Chloride) 50 mls @ 100 mls/hr IV Q6H [place] Ondansetron HCl (Ondansetron Hcl 4 Mg/2 Ml Vial) 4 mg IVPUSH QID PRN PRN Reason: Nausea Last Admin: 02/21/22 13:31 Dose: 4 mg Oxycodone HCl (Oxycodone Hcl Immed Release 5 Mg Tablet) 5 mg PO Q6H PRN PRN Reason: Pain, Severe (Pain Scale 7-10) Pharmacy Consult (Consult Rx Perform Med Rec) 1 each MISCELLANE ONCE PRN PRN Reason: Consult order Sodium Chloride (0.9 % Sodium Chloride Flush 3 Ml Syringe) 3 ml IVFLUSH [facility] Zolpidem Tartrate (Zolpidem Tartrate 5 Mg Tablet) 5 mg PO BEDTIME PRN PRN Reason: Insomnia Home Medications Medication Instructions Recorded Confirmed Last Taken Type albuterol sulfate 90 mcg/actuation 2 puff inhalation Q4-6H PRN 08/03/20 02/21/22 Unknown History aerosol inhaler wheezing allopurinol 100 mg tablet 1 tab PO DAILY PRN gout attack 09/06/21 02/21/22 Unknown History atorvastatin 40 mg tablet 1 tab PO DAILY 09/06/21 02/21/22 2 Days Ago History ~02/19/22 clonazepam 1 mg tablet 1 tab PO BEDTIME PRN insomnia 09/06/21 02/21/22 2 Days Ago History ~02/19/22 diltiazem HCl 120 mg capsule,24 1 cap PO DAILY 09/06/21 02/21/22 2 Days Ago History hr,extended release (Tiadylt ER) ~02/19/22 famotidine 40 mg tablet 1 tab PO BID PRN heartburn 09/06/21 02/21/22 Unknown History losartan 100 mg tablet 1 tab PO DAILY 09/06/21 02/21/22 2 Days Ago History ~02/19/22 risperidone 2 mg tablet 1 tab PO BEDTIME 09/06/21 02/21/22 2 Days Ago History ~02/19/22 cyclobenzaprine 10 mg tablet 1 tab PO TID PRN muscle spasm 02/21/22 02/21/22 Unknown History melatonin 10 mg tablet 10 mg PO BEDTIME PRN Sleep 02/21/22 02/21/22 Unknown History risperidone 0.5 mg tablet 1 tab PO BEDTIME 02/21/22 02/21/22 2 Days Ago History ~02/19/22 sertraline 50 mg tablet 1 tab PO BEDTIME 02/21/22 02/21/22 2 Days Ago History ~02/19/22 Physical Exam Vital Signs and Narrative: Vital Signs: Last Vital Signs Temp 97.7 F 02/21/22 14:05 Pulse 77 02/21/22 14:05 Resp 17 02/21/22 14:05 BP 139/96 H 02/21/22 14:05 Pulse Ox 97 02/21/22 14:05 O2 Del Method 02/21/22 14:05 BMI result Body Mass Index 30.4 Constitutional - Awake and Alert, No apparent distress Eyes - PERRLA, EOMI Cardiovascular - S1S2, RRR, No edema Respiratory - Normal lung expansion, Normal respiratory effort, No respiratory distress, CTA bilaterally Gastrointestinal - NT / ND; +BS; No rebound or guarding Extremities - no calf tenderness bilaterally, no swelling Skin - Warm/Dry Neurological - Alert & oriented x3, CN II-XII in tact, 5/5 strength BUE and BLE Psychological - Appropriate affect Results Labs 02/21/22 07:56 02/21/22 07:56 Labs: Laboratory Results - last 24 hr 02/21/22 02/21/22 02/21/22 07:44 07:44 07:56 MCV 83.4 MCH 27.0 MCHC 32.4 RDW 13.8 Plt Count 279 MPV 9.7 Immature Gran % (Auto) 0.5 H Neut % (Auto) 78.5 H Lymph % (Auto) 15.3 L Coffee % (Auto) 4.0 Eos % (Auto) 1.2 Baso % (Auto) 0.5 Lymph # (Auto) 2.1 Coffee # (Auto) 0.6 Eos # (Auto) 0.2 Baso # (Auto) 0.1 Abs Immat Gran (auto) 0.07 H Absolute Neuts (auto) 10.8 H Absolute Nucleated RBC 0.000 Nucleated RBC % (auto) 0.0 Anion Gap Estim Creat Clear Calc Estimated GFR Random Glucose Lactic Acid Calcium Total Bilirubin AST ALT Alkaline Phosphatase Total Protein Albumin Urine Color Yellow Urine Appearance Clear Urine pH 6.0 Ur Specific [place] 1.025 Urine Protein Negative Urine Glucose (UA) Negative Urine Ketones Negative Urine Blood Negative Urine Nitrite Negative Ur Leukocyte Esterase Negative Urine Opiates Screen Not Detected Urine Fentanyl Screen Not Detected Ur Barbiturates Screen Not Detected Ur Phencyclidine Scrn Not Detected Ur Amphetamines Screen Not Detected U Benzodiazepines Scrn Not Detected Urine Cocaine Screen POSITIVE H U Marijuana (THC) Screen POSITIVE H 02/21/22 02/21/22 07:56 11:44 MCV MCH MCHC RDW Plt Count MPV Immature Gran % (Auto) Neut % (Auto) Lymph % (Auto) Coffee % (Auto) Eos % (Auto) Baso % (Auto) Lymph # (Auto) Coffee # (Auto) Eos # (Auto) Baso # (Auto) Abs Immat Gran (auto) Absolute Neuts (auto) Absolute Nucleated RBC Nucleated RBC % (auto) Anion Gap 14 Estim Creat Clear Calc 74.4 Estimated GFR 60 Random Glucose 127 H Lactic Acid 1.3 Calcium 9.7 D Total Bilirubin 0.3 AST 9 ALT 12 Alkaline Phosphatase 79 Total Protein 7.1 Albumin 4.3 Urine Color Urine Appearance Urine pH Ur Specific [place] Urine Protein Urine Glucose (UA) Urine Ketones Urine Blood Urine Nitrite Ur Leukocyte Esterase Urine Opiates Screen Urine Fentanyl Screen Ur Barbiturates Screen Ur Phencyclidine Scrn Ur Amphetamines Screen U Benzodiazepines Scrn Urine Cocaine Screen U Marijuana (THC) Screen Imaging Radiologist's Impressions: Impressions Abdomen Ultrasound 02/21/22 10:10 IMPRESSION: Cholelithiasis with increased gallbladder mural thickening and pericholecystic fluid most consistent with acute cholecystitis. Assessment and Plan (1) Cholecystitis: Status: Acute (2) Cocaine abuse: Status: Acute Plan 51 year old male with history schizophrenia with cocaine induced psychosis, depression, history prediabetes, hypertension, chronic gout, mild intermittent asthma, ROCHELLE noncompliant with CPAP, HLD admitted to general surgery with consult placed to hospitalist service for medical management. #Cholecystitis -Plan per general surgery -Continue zosyn, pain management -NPO after midnight #polysubstance abuse -Drug screen +cocaine, MJ -Addiction medicine consult -Echocardiogram ordered preoperatively #History prediabetes- last A1c 5.4% #HTN- reasonably controlled -Continue home meds #HLD -Continue statin #Gout -Continue allopurinol #Schizophrenia/depression -Continue risperdal #Mild intermittent asthma without exacerbation -albuterol prn #ROCHELLE- noncompliant with CPAP -Counseled on importance of CPAP usage -Counseled on weight loss efforts -Agreeable to CPAP in hospital #Pre-op -Recommend pre-op echocardiogram and EKG given cocaine abuse. Also endorsing sob, cagle with short distances and ascending flight of stairs which does not seem consistent with asthma and there is no acute exacebration. No known history of CVD/CHF. He is euvolemic appearing on exam. Diabetes is non insulin dependent. Anesthesia to evaluate op risk with ROCHELLE (noncompliant with CPAP.) RBBB is chronic and should not increase surgical risk. Thank you for this consult. Will continue following. Time Spent With Patient Time: Total time managing care of this patient today ____ minutes.
--- NOTE | 2022-02-21 16:00 | CA_ITS ---
Transthoracic Echocardiogram Patient (Last, First, Middle): Ashu García Luis Gender: Male Date of : 1970 Age: 51 Procedure Date: 02/21/2022 Procedure Type: Transthoracic Echocardiogram Location: ER Height: 172.72 cm Weight: 90.72 kg BSA: 2.04 m2 Heart Rate: bpm BP: 139 / 96 mmHg Hot Cell Technician: JOSELYN Referring MD: Codi RUEDA Purification Supervisor: Gerard Jara MD Symptoms: cocaine abuse, pre-operative Study Quality: Fair ECG Rhythm: Sinus Conclusions: - Essentially normal study with a bicuspid aortic valve Findings Left Ventricle Normal left ventricular size, thickness, and systolic function. The visually estimated ejection fraction is between 60-65%. There is no evidence of regional wall motion abnormalities. Spectral Doppler is indicative of an impaired relaxation filling pattern. E/E prime ratio is <8, consistent with normal filling pressures. Evidence suggests grade I (mild) diastolic dysfunction. Peak GLS is -17.6%, within normal limits. Right Ventricle Normal right ventricular cavity size and systolic function. Atria Both atria are normal in size. Interatrial shunt cannot be excluded. Aortic Valve There is a bicuspid aortic valve. There is no aortic valve stenosis. There is no aortic valve regurgitation. Mitral Valve Normal mitral valve structure and function. There is no mitral valve regurgitation. There is no mitral valve stenosis. Pulmonic Valve The pulmonic valve is normal. Tricuspid Valve Normal tricuspid valve structure. There is trace tricuspid valve regurgitation. The right ventricular systolic pressure is normal. The right ventricular systolic pressure is 26 mmHg. Normal right atrial pressure. There is no evidence of pulmonary hypertension. Great Vessels All visible segments of the aorta are normal in size. The pulmonary artery was not well visualized. Venous The inferior vena cava is normal in size and collapses greater than 50% with inspiration. Pericardium/Pleural There is no evidence of pericardial effusion. Prior Study Comparison No prior study available for comparison. Measurements 2D Linear Measurements IVSd: 0.98 0.6-0.9/0.6-1.0 cm LVIDd: 5.69 3.9-5.3/4.2-5.9 cm LVIDd Index: 2.79 2.4-3.2/2.2-3.1 cm/m2 LVIDs: 3.45 2.0-3.6 cm LVPWd: 0.96 0.7-1.1 cm LA Diam: 2.80 2.7-3.8/3.0-4.0 cm LAIDs Index: 1.37 1.5-2.3 cm/m2 LV Mass: 270.19 67-162/88-224 g LV Mass Index: 132.45 43-95/49-115 g/m2 LVOT Diam: 2.30 3.0+(-)1.3 cm 2D Systolic Function EF 4C: 63.40 >55% EF 2C: 54.20 >55% Mitral Valve MV Pk E: 0.79 MV PK A: 0.84 MV Decel Time: 232.00 E/A: 0.90 E'Lateral: 10.40 E'Medial: 5.87 E/E' Med: 13.40 E/E' Lat: 7.60 PHT: 68.00 MVA PHT: 3.24 Decel Towns: 3.39 Aortic Valve AoV Pk Myron: 1.37 AoV Mn Myron: 0.98 AoV VTI: 0.25 AoV Pk Grad: 8.00 Aov Mn Grad: 4.00 JULIANA Cont.VTI: 3.00 LVOT LVOT Pk Myron: 1.04 LVOT Mn Myron: 0.68 LVOT VTI: 0.18 LVOT Pk Grad: 4.00 LVOT Mn Grad: 2.00 LVOT Diam: 2.30 LVOT Area: 4.15 Diastolic Function MV Pk E: 0.79 MV Pk A: 0.84 E/A: 0.90 E'Medial: 5.87 E/E' Med: 13.40 E' Laterial: 10.40 E/E' Lat: 7.60 Right Ventricle TAPSE (mm): 19.50 TVS' Myron: 13.50 Tricuspid Valve TR Pk Myron: 2.38 TR Pk Grad: 23.00 RA Press: 3.00 RVSP: 26.00 Great Vessels Aorta Sinus of Valsalva: 4.36 2.0-3.[address] [place]: 3.50 1.7-3.4 cm Ao Asc: 3.80 2.1-3.4 cm Updated in Other Vendor System with Status of Final Gerard Jara MD electronically signed on 02/22/2022 8:39:37 AM with status of Final
[2022-02-21 16:10] LABS: Magnesium 1.8 mg/dL (1.6-2.6)
--- NOTE | 2022-02-21 18:01 | MHC.CM.PN ---
CM met with admitted patient in ED OVER FLOW with bed assignment pending. interpreter used as pt is Albanian speaking only. Pt to have cholecystectomy 02/22. Was at [facility] on 01/14 for same symptoms, but resolved without surgery. Lives with girlfriend. No DME/services. Has no transportation. Pfizer x2 only. No boosters. No HCP on file. HCP reviewed, completed and signed. Copies given. Uploaded into [facility] and [facility] Expanse. HCP/girlfriend Aidee Denny ([phone]). D/C plan: Home without services. Pt will need Ly[employer] or [facility] van for transport home. CM to follow for discharge needs.
[2022-02-21 19:32] LABS: COVID-19 Test Negative (Negative); IDNOW Serial# 16C4AD1C
[2022-02-21 20:39] VITALS: BP 114/80; PULSE 79; RESP 18; TEMP 36.8; O2SAT 95
[2022-02-22] VITALS (16 sets, daily range): BP systolic 124–159; BP diastolic 65–101; PULSE 86–111; RESP 16–23; TEMP 36.3–37.7; O2SAT 95–100; BMI 34.0
[2022-02-22] MEDS: Acetaminophen 1,000 MG/100 ML PIGGYBACK 400 MG IV ×3 (00:02→18:40)
[2022-02-22] MEDS: Piperacillin Sodium/Tazobactam 3.375 GM in 0.9 % Sodium Chloride 50 ML IV ×2 (03:59→08:47)
[2022-02-22] MEDS: HYDROmorphone HCl 0.5 MG/0.5 ML SYRINGE IVPUSH ×4 (04:04→23:08)
[2022-02-22] MEDS: Dextrose 5 % and Lactated Ring 1,000 ML 125 ML IVCONT ×2 (04:07→15:37)
--- NOTE | 2022-02-22 07:32 | PC.RT ---
pt refused to wear Cpap last night.
--- NOTE | 2022-02-22 08:42 | HO.ANESPROP2 ---
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 Depression Diabetes High cholesterol HTN (hypertension) Hypoglycemia Substance-induced psychotic disorder with delusions Family History Family History Mother CAD (coronary artery disease) [place] (myocardial infarction) Diabetes Father CAD (coronary artery disease) [place] (myocardial infarction) Diabetes Testicular cancer Sister CAD (coronary artery disease) Surgical History History of Problems with Anesthesia: No Social History Social History Household Members: Family Household Members Other:: 2 daughters and 1 son Housing: Apartment Do you presently have visiting nurse or other home services: No Alcohol intake: current Alcohol intake frequency: former alcohol drinker Patient Tobacco Use Status: Current someday Tobacco user Tobacco use type: Cigarette Cigarettes Per Day: 4 e-Cigarette/Vaping Use: Never Used Second Hand Smoke Exposure: No Substance Use Type: Crack/Cocaine and Marijuana service: No Current occupational status: unemployed Sexual orientation: Straight/Heterosexual Meds Allergies Allergy/AdvReac Type Severity Reaction Status Date / Time trazodone Allergy Shortness Verified 09/10/21 18:36 of Breath Active Medications: Current Medications Hydromorphone HCl (Hydromorphone Hcl 0.5 Mg/0.5 Ml Syringe) 0.5 mg IVPUSH Q3H PRN; Protocol PRN Reason: Pain, Severe (Pain Scale 7-10) Last Admin: 02/22/22 04:04 Dose: 0.5 mg Dextrose/Lactated Ringer's (D5lr) 1,000 mls @ 125 mls/hr IVCONT .Q8H [place] Last Admin: 02/22/22 04:07 Dose: 125 mls/hr Piperacillin Sod/Tazobactam (Sod 3.375 gm/ Sodium Chloride) 50 mls @ 100 mls/hr IV Q6H COUNT INCLUDES THE [facility] Last Infusion: 02/22/22 04:37 Dose: Infused Ondansetron HCl (Ondansetron Hcl 4 Mg/2 Ml Vial) 4 mg IVPUSH QID PRN PRN Reason: Nausea Last Admin: 02/21/22 13:31 Dose: 4 mg Oxycodone HCl (Oxycodone Hcl Immed Release 5 Mg Tablet) 5 mg PO Q6H PRN PRN Reason: Pain, Severe (Pain Scale 7-10) Pharmacy Consult (Consult Rx Perform Med Rec) 1 each MISCELLANE ONCE PRN PRN Reason: Consult order Sodium Chloride (0.9 % Sodium Chloride Flush 3 Ml Syringe) 3 ml IVFLUSH QSHIFT COUNT INCLUDES THE [facility] Last Admin: 02/22/22 00:15 Dose: Not Given Zolpidem Tartrate (Zolpidem Tartrate 5 Mg Tablet) 5 mg PO BEDTIME PRN PRN Reason: Insomnia Home Medications Medication Instructions Recorded Confirmed Last Taken Type albuterol sulfate 90 mcg/actuation 2 puff inhalation Q4-6H PRN 08/03/20 02/21/22 Unknown History aerosol inhaler wheezing allopurinol 100 mg tablet 1 tab PO DAILY PRN gout attack 09/06/21 02/21/22 Unknown History atorvastatin 40 mg tablet 1 tab PO DAILY 09/06/21 02/21/22 2 Days Ago History ~02/19/22 clonazepam 1 mg tablet 1 tab PO BEDTIME PRN insomnia 09/06/21 02/21/22 2 Days Ago History ~02/19/22 diltiazem HCl 120 mg capsule,24 1 cap PO DAILY 09/06/21 02/21/22 2 Days Ago History hr,extended release (Tiadylt ER) ~02/19/22 famotidine 40 mg tablet 1 tab PO BID PRN heartburn 09/06/21 02/21/22 Unknown History losartan 100 mg tablet 1 tab PO DAILY 09/06/21 02/21/22 2 Days Ago History ~02/19/22 risperidone 2 mg tablet 1 tab PO BEDTIME 09/06/21 02/21/22 2 Days Ago History ~02/19/22 cyclobenzaprine 10 mg tablet 1 tab PO TID PRN muscle spasm 02/21/22 02/21/22 Unknown History melatonin 10 mg tablet 10 mg PO BEDTIME PRN Sleep 02/21/22 02/21/22 Unknown History risperidone 0.5 mg tablet 1 tab PO BEDTIME 02/21/22 02/21/22 2 Days Ago History ~02/19/22 sertraline 50 mg tablet 1 tab PO BEDTIME 02/21/22 02/21/22 2 Days Ago History ~02/19/22 Exam Exam Date and Time: February 22, 2022 0842 Height,Weight and Vital Signs: Height 5 ft 8 in Weight 101.6 kg Last Vital Signs Temp 99.2 F 02/22/22 07:48 Pulse 96 02/22/22 07:48 Resp 17 02/22/22 07:48 BP 136/91 H 02/22/22 07:48 Pulse Ox 99 02/22/22 07:48 O2 Del Method 02/22/22 07:48 Pertinent Lab Results Pertinent Lab Results: Laboratory Tests 02/21/22 02/21/22 02/21/22 07:44 07:44 07:56 WBC 13.7 H RBC 5.11 Hgb 13.8 L Hct 42.6 MCV 83.4 MCH 27.0 MCHC 32.4 RDW 13.8 Plt Count 279 MPV 9.7 Immature Gran % (Auto) 0.5 H Neut % (Auto) 78.5 H Lymph % (Auto) 15.3 L [place] % (Auto) 4.0 Eos % (Auto) 1.2 Baso % (Auto) 0.5 Lymph # (Auto) 2.1 [place] # (Auto) 0.6 Eos # (Auto) 0.2 Baso # (Auto) 0.1 Abs Immat Gran (auto) 0.07 H Absolute Neuts (auto) 10.8 H Absolute Nucleated RBC 0.000 Nucleated RBC % (auto) 0.0 Sodium Potassium Chloride Carbon Dioxide Anion Gap BUN Creatinine Estim Creat Clear Calc Estimated GFR Random Glucose Lactic Acid Calcium Magnesium Total Bilirubin AST ALT Alkaline Phosphatase Total Protein Albumin Urine Color Yellow Urine Appearance Clear Urine pH 6.0 Ur Specific [place] 1.025 Urine Protein Negative Urine Glucose (UA) Negative Urine Ketones Negative Urine Blood Negative Urine Nitrite Negative Ur Leukocyte Esterase Negative Urine Opiates Screen Not Detected Urine Fentanyl Screen Not Detected Ur Barbiturates Screen Not Detected Ur Phencyclidine Scrn Not Detected Ur Amphetamines Screen Not Detected U Benzodiazepines Scrn Not Detected Urine Cocaine Screen POSITIVE H U Marijuana (THC) Screen POSITIVE H COVID-19 (MAGI) COVID-19 Clin Com 02/21/22 02/21/22 02/21/22 07:56 11:44 17:15 WBC RBC Hgb Hct MCV MCH MCHC RDW Plt Count MPV Immature Gran % (Auto) Neut % (Auto) Lymph % (Auto) [place] % (Auto) Eos % (Auto) Baso % (Auto) Lymph # (Auto) [place] # (Auto) Eos # (Auto) Baso # (Auto) Abs Immat Gran (auto) Absolute Neuts (auto) Absolute Nucleated RBC Nucleated RBC % (auto) Sodium 143 Potassium 4.2 Chloride 105 Carbon Dioxide 28 Anion Gap 14 BUN 20 H Creatinine 1.27 Estim Creat Clear Calc 74.4 Estimated GFR 60 Random Glucose 127 H Lactic Acid 1.3 Calcium 9.7 D Magnesium 1.8 Total Bilirubin 0.3 AST 9 ALT 12 Alkaline Phosphatase 79 Total Protein 7.1 Albumin 4.3 Urine Color Urine Appearance Urine pH Ur Specific [place] Urine Protein Urine Glucose (UA) Urine Ketones Urine Blood Urine Nitrite Ur Leukocyte Esterase Urine Opiates Screen Urine Fentanyl Screen Ur Barbiturates Screen Ur Phencyclidine Scrn Ur Amphetamines Screen U Benzodiazepines Scrn Urine Cocaine Screen U Marijuana (THC) Screen COVID-19 (MAGI) Cancelled COVID-19 Clin Com Cancelled 02/21/22 18:59 WBC RBC Hgb Hct MCV MCH MCHC RDW Plt Count MPV Immature Gran % (Auto) Neut % (Auto) Lymph % (Auto) [place] % (Auto) Eos % (Auto) Baso % (Auto) Lymph # (Auto) [place] # (Auto) Eos # (Auto) Baso # (Auto) Abs Immat Gran (auto) Absolute Neuts (auto) Absolute Nucleated RBC Nucleated RBC % (auto) Sodium Potassium Chloride Carbon Dioxide Anion Gap BUN Creatinine Estim Creat Clear Calc Estimated GFR Random Glucose Lactic Acid Calcium Magnesium Total Bilirubin AST ALT Alkaline Phosphatase Total Protein Albumin Urine Color Urine Appearance Urine pH Ur Specific [place] Urine Protein Urine Glucose (UA) Urine Ketones Urine Blood Urine Nitrite Ur Leukocyte Esterase Urine Opiates Screen Urine Fentanyl Screen Ur Barbiturates Screen Ur Phencyclidine Scrn Ur Amphetamines Screen U Benzodiazepines Scrn Urine Cocaine Screen U Marijuana (THC) Screen COVID-19 (MAGI) Negative COVID-19 Clin Com See Note Airway Mallampati Class: III TM Dist: >3cm Neck ROM: Full Loose/Missing/Broken Teeth: No Heart: RRR Lungs: CTA Assessment and Plan Assessment Anesthesia Assessment: Anesthesia Plan Discussed and Chart Reviewed Final Anesthetic Review History of Problems with Anesthesia: No NPO: Yes ASA Class: II Final Preanesthetic Review: Meds/Allgs Chart Reviewed, Consent Obtained/Reviewed and Anes Risks/Benef Reviewed Patient Risk: Low Procedure Risk: Intermediate Anesthetic Plan Anesthetic Plan: GA Disposition: Standard PACU
[2022-02-22] MEDS: ondansetron HCL 4 MG/2 ML VIAL IVPUSH (08:46)
[2022-02-22] MEDS: 0.9 % Sodium Chloride Flush 3 ML SYRINGE IVFLUSH ×2 (08:53→15:37)
--- NOTE | 2022-02-22 09:08 | HO.PM.IMPN ---
Subjective Subjective Date of Service: 02/22/22 Interval History: For acute cholecystitis, cocaine abuser Interval history: Reports bilateral tension type headache, abd bloating and discomfort epigastric/RUQ. No n/v. Review of Systems Review of Systems: Yes all other systems are reviewed and are negative Physical Exam Vital Signs: Vital Signs: Last Vital Signs Temp 99.2 F 02/22/22 07:48 Pulse 96 02/22/22 07:48 Resp 17 02/22/22 07:48 BP 136/91 H 02/22/22 07:48 Pulse Ox 99 02/22/22 07:48 O2 Del Method 02/22/22 07:48 BMI result Body Mass Index 34.0 Constitutional - Awake and Alert, No apparent distress Eyes - PERRLA, EOMI Cardiovascular - S1S2, RRR, No edema Respiratory - Normal lung expansion, Normal respiratory effort, No respiratory distress, CTA bilaterally Gastrointestinal - softly distended with mild epigastric ttp without guarding or rebound.+BS Extremities - no calf tenderness bilaterally, no swelling Skin - Warm/Dry Neurological - Alert & oriented x3, CN II-XII in tact, 5/5 strength BUE and BLE Psychological - Appropriate affect Objective Data Active Medications Hydromorphone HCl (Hydromorphone Hcl 0.5 Mg/0.5 Ml Syringe) 0.5 mg IVPUSH Q3H PRN; Protocol PRN Reason: Pain, Severe (Pain Scale 7-10) Last Admin: 02/22/22 08:46 Dose: 0.5 mg Documented By: TAYLOR Dextrose/Lactated Ringer's (D5lr) 1,000 mls @ 125 mls/hr IVCONT .Q8H [place] Last Admin: 02/22/22 04:07 Dose: 125 mls/hr Documented By: CARLTON Piperacillin Sod/Tazobactam (Sod 3.375 gm/ Sodium Chloride) 50 mls @ 100 mls/hr IV Q6H [place] Last Admin: 02/22/22 08:47 Dose: 100 mls/hr Documented By: TAYLOR Ondansetron HCl (Ondansetron Hcl 4 Mg/2 Ml Vial) 4 mg IVPUSH QID PRN PRN Reason: Nausea Last Admin: 02/22/22 08:46 Dose: 4 mg Documented By: TAYLOR Oxycodone HCl (Oxycodone Hcl Immed Release 5 Mg Tablet) 5 mg PO Q6H PRN PRN Reason: Pain, Severe (Pain Scale 7-10) Pharmacy Consult (Consult Rx Perform Med Rec) 1 each MISCELLANE ONCE PRN PRN Reason: Consult order Sodium Chloride (0.9 % Sodium Chloride Flush 3 Ml Syringe) 3 ml IVFLUSH QSHIFT [place] Last Admin: 02/22/22 08:53 Dose: 3 ml Documented By: TAYLOR Zolpidem Tartrate (Zolpidem Tartrate 5 Mg Tablet) 5 mg PO BEDTIME PRN PRN Reason: Insomnia Labs 02/21/22 07:56 02/21/22 07:56 Labs: Laboratory Results - last 24 hr 02/21/22 02/21/22 02/21/22 07:56 11:44 17:15 Lactic Acid 1.3 Magnesium 1.8 COVID-19 (MAGI) Cancelled COVID-19 Clin Com Cancelled 02/21/22 18:59 Lactic Acid Magnesium COVID-19 (MAGI) Negative COVID-19 Clin Com See Note Assessment and Plan (1) Cholecystitis: Status: Acute (2) Cocaine abuse: Status: Acute Plan 51 year old male with history schizophrenia with cocaine induced psychosis, depression, history prediabetes, hypertension, chronic gout, mild intermittent asthma, ROCHELLE noncompliant with CPAP, HLD admitted to general surgery with consult placed to hospitalist service for medical management. #Cholecystitis -Plan per general surgery -Continue zosyn, pain management -NPO after midnight -Echocardiogram reassuring. Systolic LV function normal wtih EF 60% and mils (grade I diastolic dysfunction), no wall motion abnormality #polysubstance abuse -Drug screen +cocaine, MJ -Addiction medicine consult #History prediabetes- last A1c 5.4% #HTN- reasonably controlled -Continue home meds #HLD -Continue statin #Gout -Continue allopurinol #Schizophrenia/depression -Continue risperdal #Mild intermittent asthma without exacerbation -albuterol prn #ROCHELLE- noncompliant with CPAP -Counseled on importance of CPAP usage -Counseled on weight loss efforts -Agreeable to CPAP in hospital Thank you for allowing me to participate in this consult. Signing off at this time. Please do not hesitate to call for further questions. Time Spent With Patient Time: Total time managing care of this patient today ____ minutes. Quality Stroke Does the patient have a stroke diagnosis?: No VTE Prior VTE?: No VTE Risk Level:: Surgical - moderate VTE Device Contraindication: N/A - Device Ordered VTE Drug Contraindication: Treatment Not Indicated
--- NOTE | 2022-02-22 09:53 | PC.NURSE ---
Patient off floor for OR procedure at this time via wheelchair and RN.
[2022-02-22 10:04] LABS: Glucose, Whole Blood 127 mg/dL (60-115)
[2022-02-22] MEDS: HYDROmorphone HCl 0.5 MG/0.5 ML SYRINGE 0.25 MG IVPUSH ×2 (12:52→13:01)
--- NOTE | 2022-02-22 13:50 | PC.NURSE ---
Patient on floor back from OR at this time.
[2022-02-22] MEDS: oxyCODONE HCl Immed Release 5 MG TABLET PO (18:41)
[2022-02-22] MEDS: risperiDONE 0.5 MG TABLET PO (19:49)
[2022-02-22] MEDS: Sertraline HCL 50 MG TABLET PO (19:50)
[2022-02-22] MEDS: risperiDONE 2 MG TABLET PO (19:50)
[2022-02-23] MEDS: Acetaminophen 1,000 MG/100 ML PIGGYBACK 400 MG IV ×4 (02:13→20:21)
[2022-02-23] MEDS: HYDROmorphone HCl 0.5 MG/0.5 ML SYRINGE IVPUSH ×5 (02:13→21:56)
[2022-02-23] MEDS: Dextrose 5 % and Lactated Ring 1,000 ML 125 ML IVCONT ×3 (02:19→20:21)
[2022-02-23 03:00] VITALS: BP 116/62; PULSE 89; RESP 18; TEMP 36.9; O2SAT 96
[2022-02-23 06:50] LABS: MANUAL DIFF FLAG NO
[2022-02-23 06:57] LABS: Basophils Percent Auto 0.3 % (0-2); Eosinophils Absolute Auto 0.1 X10*3/uL (0.0-0.4); Eosinophils Percent Auto 0.4 % (0-4); Hematocrit 35.4 % (42.0-52.0); Hemoglobin 11.4 g/dl (14.0-18.0); Imm Gran Abs Auto 0.05 X10*3/uL (0.00-0.03); Imm Gran Pct Auto 0.4 % (0.0-0.4); Lymphocytes Absolute Auto 1.7 X10*3/uL (1.2-4.9); Mean Corpuscular HGB Conc 32.2 g/dl (31.0-36.0); Mean Corpuscular Volume 83.7 fL (80.0-98.0); Mean Platelet Volume 10.2 fL (9.4-12.4); Monocytes Absolute Auto 0.6 X10*3/uL (0.1-1.2); Monocytes Percent Auto 5.6 % (2-11); Neutrophils Percent Auto 78.3 % (45-73); Platelet Count 228 X10*3/uL (160-400); Red Blood Count 4.23 X10*6/uL (4.60-5.80); Red Cell Distribution Width 13.9 % (11.0-16.0); White Blood Count 11.5 X10*3/uL (4.8-10.8)
--- NOTE | 2022-02-23 08:00 | HO.POSTANES ---
Post Anesthesia Evaluation Post Anesthesia Evaluation Vital Signs: Vital Signs Temp Pulse Resp BP Pulse Ox O2 Del Method O2 Flow Rate 02/23/22 03:00 98.5 F 89 18 116/62 96 Nasal Cannula 1 Anesthesia: General Endotracheal-GETA Mental Status: Awake Pain Control: Satisfactory Nausea/Vomiting: None Hydration: Adequate Anesthesia-Related Issues: No Anes. Related Issues
--- NOTE | 2022-02-23 08:04 | PM.PNGS ---
Subjective Subjective Date of Service: 02/23/22 Interval history: Pod 1 following laparoscopic converted to open cholecystectomy for acute cholecystitis. Patient reports incisional pain. Physical Exam Vital Signs: Vital Signs: Last Vital Signs Temp 98.5 F 02/23/22 03:00 Pulse 89 02/23/22 03:00 Resp 18 02/23/22 03:00 BP 116/62 02/23/22 03:00 Pulse Ox 96 02/23/22 03:00 O2 Del Method 02/23/22 03:00 O2 Flow Rate 1 02/23/22 03:00 BMI result Body Mass Index 34.0 Const: Other: Awake, alert, oriented x3, having discomfort. HEENT: Head: Yes normocephalic Eyes: Other: No scleral icterus Resp: Other: Breathing comfortably without respiratory distress GI: Other: Incision clean and intact. Some bloody discharge around the drain site. Extrem: Other: No edema Objective Data Active Medications Albuterol Sulfate (Albuterol Sulfate 90 Mcg 8 Gm Inhaler) 2 puff INHALE Q4H PRN PRN Reason: wheezing Allopurinol (Allopurinol 100 Mg Tablet) 100 mg PO DAILY PRN PRN Reason: gout attack Atorvastatin Calcium (Atorvastatin Calcium 40 Mg Tablet) 40 mg PO DAILY [facility] Diltiazem HCl (Diltiazem Hcl Cd 120 Mg Cap.Er.Deg) 120 mg PO DAILY [facility]; Protocol Famotidine (Famotidine 20 Mg Tablet) 40 mg PO BID PRN PRN Reason: heartburn Hydromorphone HCl (Hydromorphone Hcl 0.5 Mg/0.5 Ml Syringe) 0.5 mg IVPUSH Q3H PRN; Protocol PRN Reason: Pain, Severe (Pain Scale 7-10) Last Admin: 02/23/22 06:40 Dose: 0.5 mg Documented By: FLYNN Dextrose/Lactated Ringer's (D5lr) 1,000 mls @ 125 mls/hr IVCONT .Q8H [facility] Last Admin: 02/23/22 02:19 Dose: 125 mls/hr Documented By: FLYNN Acetaminophen (Ofirmev) 1,000 mg in 100 mls @ 400 mls/hr IV Q6H [facility] Last Infusion: 02/23/22 03:46 Dose: 0 mls/hr Documented By: FLYNN Losartan Potassium (Losartan Potassium 50 Mg Tablet) 100 mg PO DAILY [facility]; Protocol Ondansetron HCl (Ondansetron Hcl 4 Mg/2 Ml Vial) 4 mg IVPUSH QID PRN PRN Reason: Nausea Last Admin: 02/22/22 08:46 Dose: 4 mg Documented By: TAYLOR Oxycodone HCl (Oxycodone Hcl Immed Release 5 Mg Tablet) 5 mg PO Q6H PRN PRN Reason: Pain, Severe (Pain Scale 7-10) Last Admin: 02/22/22 18:41 Dose: 5 mg Documented By: SONG-ABRAM Oxycodone HCl (Oxycodone Hcl Immed Release 5 Mg Tablet) 10 mg PO Q4H PRN PRN Reason: Pain, Severe (Pain Scale 7-10) Pharmacy Consult (Consult Rx Perform Med Rec) 1 each MISCELLANE ONCE PRN PRN Reason: Consult order Risperidone (Risperidone 0.5 Mg Tablet) 0.5 mg PO BEDTIME [facility] Last Admin: 02/22/22 19:49 Dose: 0.5 mg Documented By: FLYNN Risperidone (Risperidone 2 Mg Tablet) 2 mg PO BEDTIME [facility] Last Admin: 02/22/22 19:50 Dose: 2 mg Documented By: FLYNN Sertraline HCl (Sertraline Hcl 50 Mg Tablet) 50 mg PO BEDTIME [facility] Last Admin: 02/22/22 19:50 Dose: 50 mg Documented By: FLYNN Sodium Chloride (0.9 % Sodium Chloride Flush 3 Ml Syringe) 3 ml IVFLUSH QSHIFT [facility] Last Admin: 02/22/22 22:32 Dose: Not Given Documented By: FLYNN Non-Admin Reason: IV Running Zolpidem Tartrate (Zolpidem Tartrate 5 Mg Tablet) 5 mg PO BEDTIME PRN PRN Reason: Insomnia Labs 02/23/22 05:41 02/21/22 07:56 Labs: Laboratory Results - last 24 hr 02/22/22 02/23/22 10:01 05:41 MCV 83.7 MCH 27.0 MCHC 32.2 RDW 13.9 Plt Count 228 MPV 10.2 Immature Gran % (Auto) 0.4 Neut % (Auto) 78.3 H Lymph % (Auto) 15.0 L [place] % (Auto) 5.6 Eos % (Auto) 0.4 Baso % (Auto) 0.3 Lymph # (Auto) 1.7 [place] # (Auto) 0.6 Eos # (Auto) 0.1 Baso # (Auto) 0.0 Abs Immat Gran (auto) 0.05 H Absolute Neuts (auto) 9.0 H Absolute Nucleated RBC 0.000 Nucleated RBC % (auto) 0.0 POC Glucose 127 H Microbiology Microbiology Results: Microbiology 02/21/22 11:44 Blood Culture - Preliminary Blood - Venous No growth after 24 hours. 02/21/22 11:44 Blood Culture - Preliminary Blood - Venous No growth after 24 hours. Procedures Date of Service Date of Service: 02/23/22 Progress Note: A&P Assessment and plan (1) Cholecystitis: Status: Acute Plan 51-year-old male patient status post laparoscopic converted to open cholecystectomy for acute cholecystitis. The patient tolerated the procedure well but does have incisional pain. Patient courage to ambulate in the hallways. Incentive spirometry encouraged. Patient on regular diet but has not taken much. Will continue to monitor. Time Spent With Patient Time: Total time managing care of this patient today ____ minutes. Quality Stroke Does the patient have a stroke diagnosis?: No VTE Prior VTE?: No VTE Risk Level:: Surgical - moderate VTE Device Contraindication: N/A - Device Ordered VTE Drug Contraindication: Treatment Not Indicated
--- NOTE | 2022-02-23 08:06 | PM.PNGS ---
Subjective Subjective Date of Service: 02/23/22 Interval history: Reports pain at incision sites, RUQ. Controlled with IV analgesics. Tolerating diet. Denies nausea, vomiting. Denies flatus. Has not been OOB yet. Physical Exam Vital Signs: Vital Signs: Last Vital Signs Temp 98.5 F 02/23/22 03:00 Pulse 89 02/23/22 03:00 Resp 18 02/23/22 03:00 BP 116/62 02/23/22 03:00 Pulse Ox 96 02/23/22 03:00 O2 Del Method 02/23/22 03:00 O2 Flow Rate 1 02/23/22 03:00 BMI result Body Mass Index 34.0 Const: General: comfortable, no acute distress and alert Orientation/consciousness: patient oriented x3 Resp: Effort & Inspection: normal respiratory effort GI: Other: AIDA drain with serosanguineous Inspection: No distended and Yes incision (dressings c/d/i) Palpation (GI): Soft to palpation, Tenderness to palpation present (GI) (moderate, incisional), no guarding and not rigid Percussion: Yes normal to percussion Skin: General skin exam: no rashes or lesions noted Neuro: General: patient oriented x3 and moves all extremities Extrem: General: Yes no clubbing, cyanosis or edema Objective Data Active Medications Albuterol Sulfate (Albuterol Sulfate 90 Mcg 8 Gm Inhaler) 2 puff INHALE Q4H PRN PRN Reason: wheezing Allopurinol (Allopurinol 100 Mg Tablet) 100 mg PO DAILY PRN PRN Reason: gout attack Atorvastatin Calcium (Atorvastatin Calcium 40 Mg Tablet) 40 mg PO DAILY [facility] Diltiazem HCl (Diltiazem Hcl Cd 120 Mg Cap.Er.Deg) 120 mg PO DAILY [facility]; Protocol Famotidine (Famotidine 20 Mg Tablet) 40 mg PO BID PRN PRN Reason: heartburn Hydromorphone HCl (Hydromorphone Hcl 0.5 Mg/0.5 Ml Syringe) 0.5 mg IVPUSH Q3H PRN; Protocol PRN Reason: Pain, Severe (Pain Scale 7-10) Last Admin: 02/23/22 06:40 Dose: 0.5 mg Documented By: FLYNN Dextrose/Lactated Ringer's (D5lr) 1,000 mls @ 125 mls/hr IVCONT .Q8H [place] Last Admin: 02/23/22 02:19 Dose: 125 mls/hr Documented By: FLYNN Acetaminophen (Ofirmev) 1,000 mg in 100 mls @ 400 mls/hr IV Q6H [facility] Last Infusion: 02/23/22 03:46 Dose: 0 mls/hr Documented By: FLYNN Losartan Potassium (Losartan Potassium 50 Mg Tablet) 100 mg PO DAILY [facility]; Protocol Ondansetron HCl (Ondansetron Hcl 4 Mg/2 Ml Vial) 4 mg IVPUSH QID PRN PRN Reason: Nausea Last Admin: 02/22/22 08:46 Dose: 4 mg Documented By: SONG-RIVNEY Oxycodone HCl (Oxycodone Hcl Immed Release 5 Mg Tablet) 5 mg PO Q6H PRN PRN Reason: Pain, Severe (Pain Scale 7-10) Last Admin: 02/22/22 18:41 Dose: 5 mg Documented By: SONG-RIVNEY Oxycodone HCl (Oxycodone Hcl Immed Release 5 Mg Tablet) 10 mg PO Q4H PRN PRN Reason: Pain, Severe (Pain Scale 7-10) Pharmacy Consult (Consult Rx Perform Med Rec) 1 each MISCELLANE ONCE PRN PRN Reason: Consult order Risperidone (Risperidone 0.5 Mg Tablet) 0.5 mg PO BEDTIME [facility] Last Admin: 02/22/22 19:49 Dose: 0.5 mg Documented By: FLYNN Risperidone (Risperidone 2 Mg Tablet) 2 mg PO BEDTIME [facility] Last Admin: 02/22/22 19:50 Dose: 2 mg Documented By: FLYNN Sertraline HCl (Sertraline Hcl 50 Mg Tablet) 50 mg PO BEDTIME [facility] Last Admin: 02/22/22 19:50 Dose: 50 mg Documented By: FLYNN Sodium Chloride (0.9 % Sodium Chloride Flush 3 Ml Syringe) 3 ml IVFLUSH QSHIFT [facility] Last Admin: 02/22/22 22:32 Dose: Not Given Documented By: FLYNN Non-Admin Reason: IV Running Zolpidem Tartrate (Zolpidem Tartrate 5 Mg Tablet) 5 mg PO BEDTIME PRN PRN Reason: Insomnia Labs 02/23/22 05:41 02/21/22 07:56 Labs: Laboratory Results - last 24 hr 02/22/22 02/23/22 10:01 05:41 MCV 83.7 MCH 27.0 MCHC 32.2 RDW 13.9 Plt Count 228 MPV 10.2 Immature Gran % (Auto) 0.4 Neut % (Auto) 78.3 H Lymph % (Auto) 15.0 L [place] % (Auto) 5.6 Eos % (Auto) 0.4 Baso % (Auto) 0.3 Lymph # (Auto) 1.7 [place] # (Auto) 0.6 Eos # (Auto) 0.1 Baso # (Auto) 0.0 Abs Immat Gran (auto) 0.05 H Absolute Neuts (auto) 9.0 H Absolute Nucleated RBC 0.000 Nucleated RBC % (auto) 0.0 POC Glucose 127 H Microbiology Microbiology Results: Microbiology 02/21/22 11:44 Blood Culture - Preliminary Blood - Venous No growth after 24 hours. 02/21/22 11:44 Blood Culture - Preliminary Blood - Venous No growth after 24 hours. Procedures Date of Service Date of Service: 02/23/22 Progress Note: A&P Assessment and plan (1) Cholecystitis: Status: Acute Plan POD #1 s/p lap attempted converted to open cholecystectomy for acute cholecystitis. Found to have dense omental adhesions to gallbladder, gallbladder with significant edema and wall thickening. He is doing fairly well post op, pain controlled with IV dilaudid and ofirmev. VSS. Abd exam with appropriate post op tenderness. AIDA with nonbilious output. Continue pain control. Encouraged OOB and ambulation. Begin colace. Hospitalists following, appreciate input. Home when pain controlled on oral analgesics. Time Spent With Patient Time: Total time managing care of this patient today ____ minutes. Quality Stroke Does the patient have a stroke diagnosis?: No VTE Prior VTE?: No VTE Risk Level:: Surgical - moderate VTE Device Contraindication: N/A - Device Ordered VTE Drug Contraindication: Treatment Not Indicated
[2022-02-23] MEDS: oxyCODONE HCl Immed Release 5 MG TABLET PO ×2 (09:07→21:54)
[2022-02-23] MEDS: dilTIAZem HCL CD 120 MG CAP.ER.DEG PO (09:07)
[2022-02-23] MEDS: Losartan Potassium 50 MG TABLET 100 MG PO (09:08)
[2022-02-23] MEDS: Atorvastatin Calcium 40 MG TABLET PO (10:58)
[2022-02-23 11:00] VITALS: BP 103/63; PULSE 68; RESP 16; TEMP 36.8; O2SAT 96
--- NOTE | 2022-02-23 12:27 | P.OP_ITS ---
Operative Note Operative Note Date of Service: 02/22/22 Narrative: Preoperative diagnosis: Acute cholecystitis, cholelithiasis Postoperative diagnosis: Same Procedure: Laparoscopic converted to open cholecystectomy Surgeon: Xavier Soriano MD Fruit [employer] Farmworker: Joycelyn Christianson PA-C Anesthesia: General LMA Indications for procedure: 51-year-old male patient presenting with severe pain in the right upper quadrant found to have multiple gallstones within the gallbladder with thickened gallbladder wall and pericholecystic fluid consistent with acute cholecystitis due to cholelithiasis. Operative findings: Acutely inflamed gallbladder with thickened gallbladder wall and dense adhesions to the anterior surface of the gallbladder. Specimen: Gallbladder Estimated blood loss: 50 mL Complications: None Procedure details: Patient was brought to the OR placed in a supine position. After administering general anesthesia patient's abdomen was prepped with ChloraPrep and draped in a sterile fashion. A surgical time-out was called the consent confirmed. Patient received preoperative antibiotics and Venodyne boots were in place. Local anesthesia consisting of 0.5% Sensorcaine with epinephrine was infiltrated in a periumbilical location. A 5 mm incision was then made with a scalpel. A Veress needle was then inserted while elevating the abdominal wall with towel clips. After a positive drop test the abdomen was insufflated to a pressure of 15 mmHg. The Veress needle was removed and a 5 mm trocar inserted. The abdomen was explored and the above findings noted. A 12 mm trocar was then placed in the epigastrium and 2 5 mm trocars placed in the right upper quadrant. Dense adhesions were noted from the omentum on the gallbladder surface extending over the liver edge. These were gently taken down using blunt dissection however found to be densely adherent. An attempt to drain the gallbladder with a laparoscopic needle made it somewhat softer but still difficult to mobilize the adhesions. The decision was made to convert to an open procedure. A right subcostal incision was then made with a scalpel directly over the gallbladder. This was carried out through subcutaneous tissue through the anterior rectus sheath. The rectus muscle was then divided the posterior sheath divided with electrocautery. Peritoneum was then entered in the abdomen explored. The gallbladder was noted to be exceptionally thickened and inflamed. This was grasped with a Vilma clamp. Electrocautery was then used to divide the peritoneum of the gallbladder just above the liver edge. A tonsil clamp was then used to mobilize the gallbladder off the liver edge. Careful dissection using a combination of electrocautery and blunt dissection was then used to mobilize the gallbladder from the fundus to the infundibulum. The cystic artery was identified and doubly clipped with hemoclips. Dissection was continued down towards the cystic duct. A very dilated cystic duct was identified. The decision was made to resect the gallbladder proximal to the cystic duct and oversewed the duct using a running 0 Polysorb suture. Gallbladder was removed and sent to pathology for further examination. Wounds were then irrigated thoroughly with saline solution. Wounds were checked for hemostasis. Because of the acute inflammation the decision was made to left a drain in place. A 10. Raymundo-Rosenberg was left in place in the gallbladder fossa and brought out through the lateral trocar site. This was secured to the skin using a 3-0 nylon suture. The subcostal incision was then closed in layers using 0 Polysorb suture to close peritoneum, posterior sheath, and anterior rectus sheath. Dermis was then closed using interrupted 3-0 Polysorb sutures and skin closed with skin glenis. The patient tolerated the procedure well. Sponge, instrument, needle counts reported as correct. The patient was transferred to PACU in stable condition.
--- NOTE | 2022-02-23 15:30 | HO.ADDICT_ITS ---
History of Present Illness Date of Service: 02/23/2022 Chief Complaint: Acute cholecystitis, cholelithiasis Reason for Consult: cocaine use HPI Narrative: Patient is a 51 year old Citizen Of The [place] speaking male currently medically admitted with cholecystitis. Consult requested as UDS positive for cocaine Patient seen in room 375. Awake, alert, engaged in interview. States cocaine is something that he does not use with regularity. Reports that at one time he used cocaine daily as well as alcohol, but that has not been the case for at least 3 years (for alcohol) and one year for cocaine. Chart review shows that patient had been psychiatrically admitted September 2021 for paranoia secondary to cocaine use. Patient pleasantly declining any resources related to cocaine use. Past Psychiatric History: Inpatient: none prior OP: [facility]- Dr. Ella Muñoz, Therapist [facility] Past Trial: clonazepam, ambien, lexapro Review of Systems Constitutional: Reports as per HPI and Reports no additional constitutional complaints Diagnostics Vital Signs (24Hr): Vital Signs - 24 hr 02/22/22 16:32 02/22/22 19:54 02/23/22 03:00 Temperature 97.3 F 98.9 F 98.5 F Pulse Rate 87 96 89 Respiratory Rate 16 16 18 Blood Pressure 142/85 H 133/85 116/62 Pulse Oximetry 99 96 96 Oxygen Delivery Method Room Air Room Air Nasal Cannula Oxygen Flow Rate 1 02/23/22 11:00 Temperature 98.2 F Pulse Rate 68 Respiratory Rate 16 Blood Pressure 103/63 Pulse Oximetry 96 Oxygen Delivery Method Nasal Cannula Oxygen Flow Rate 2 BMI result Body Mass Index 34.0 Labs 02/23/22 05:41 02/21/22 07:56 Labs: Laboratory Results - last 48 hr 02/21/22 02/21/22 02/21/22 07:56 17:15 18:59 WBC RBC Hgb Hct MCV MCH MCHC RDW Plt Count MPV Immature Gran % (Auto) Neut % (Auto) Lymph % (Auto) [place] % (Auto) Eos % (Auto) Baso % (Auto) Lymph # (Auto) [place] # (Auto) Eos # (Auto) Baso # (Auto) Abs Immat Gran (auto) Absolute Neuts (auto) Absolute Nucleated RBC Nucleated RBC % (auto) POC Glucose Magnesium 1.8 COVID-19 (MAGI) Cancelled Negative COVID-19 Clin Com Cancelled See Note 02/22/22 02/23/22 10:01 05:41 WBC 11.5 H RBC 4.23 L Hgb 11.4 L Hct 35.4 L MCV 83.7 MCH 27.0 MCHC 32.2 RDW 13.9 Plt Count 228 MPV 10.2 Immature Gran % (Auto) 0.4 Neut % (Auto) 78.3 H Lymph % (Auto) 15.0 L [place] % (Auto) 5.6 Eos % (Auto) 0.4 Baso % (Auto) 0.3 Lymph # (Auto) 1.7 [place] # (Auto) 0.6 Eos # (Auto) 0.1 Baso # (Auto) 0.0 Abs Immat Gran (auto) 0.05 H Absolute Neuts (auto) 9.0 H Absolute Nucleated RBC 0.000 Nucleated RBC % (auto) 0.0 POC Glucose 127 H Magnesium COVID-19 (MAGI) COVID-19 Clin Com Imaging Radiology Impressions: ITS Impressions Abdomen Ultrasound 02/21/22 10:10 IMPRESSION: Cholelithiasis with increased gallbladder mural thickening and pericholecystic fluid most consistent with acute cholecystitis. Mental Status Exam Mental Status Exam Patient Appearance: Appropriate (hospital attire ) Affect Description: Appropriate and Cheerful Speech Pattern: Clear Thought Content: positive for Circumstantial Judgement: Fair Medications Medications Current Medications Albuterol Sulfate (Albuterol Sulfate 90 Mcg 8 Gm Inhaler) 2 puff INHALE Q4H PRN PRN Reason: wheezing Allopurinol (Allopurinol 100 Mg Tablet) 100 mg PO DAILY PRN PRN Reason: gout attack Atorvastatin Calcium (Atorvastatin Calcium 40 Mg Tablet) 40 mg PO DAILY [facility] Last Admin: 02/23/22 10:58 Dose: 40 mg Diltiazem HCl (Diltiazem Hcl Cd 120 Mg Cap.Er.Deg) 120 mg PO DAILY [facility]; Protocol Last Admin: 02/23/22 09:07 Dose: 120 mg Docusate Sodium (Docusate Sodium 100 Mg Capsule) 100 mg PO BID PRN PRN Reason: Constipation Famotidine (Famotidine 20 Mg Tablet) 40 mg PO BID PRN PRN Reason: heartburn Hydromorphone HCl (Hydromorphone Hcl 0.5 Mg/0.5 Ml Syringe) 0.5 mg IVPUSH Q3H PRN; Protocol PRN Reason: Pain, Severe (Pain Scale 7-10) Last Admin: 02/23/22 13:34 Dose: 0.5 mg Dextrose/Lactated Ringer's (D5lr) 1,000 mls @ 125 mls/hr IVCONT .Q8H [facility] Last Admin: 02/23/22 10:57 Dose: 125 mls/hr Acetaminophen (Ofirmev) 1,000 mg in 100 mls @ 400 mls/hr IV Q6H [facility] Last Infusion: 02/23/22 14:50 Dose: Infused Losartan Potassium (Losartan Potassium 50 Mg Tablet) 100 mg PO DAILY [facility]; Protocol Last Admin: 02/23/22 09:08 Dose: 100 mg Ondansetron HCl (Ondansetron Hcl 4 Mg/2 Ml Vial) 4 mg IVPUSH QID PRN PRN Reason: Nausea Last Admin: 02/22/22 08:46 Dose: 4 mg Oxycodone HCl (Oxycodone Hcl Immed Release 5 Mg Tablet) 5 mg PO Q6H PRN PRN Reason: Pain, Severe (Pain Scale 7-10) Last Admin: 02/23/22 09:07 Dose: 5 mg Oxycodone HCl (Oxycodone Hcl Immed Release 5 Mg Tablet) 10 mg PO Q4H PRN PRN Reason: Pain, Severe (Pain Scale 7-10) Pharmacy Consult (Consult Rx Perform Med Rec) 1 each MISCELLANE ONCE PRN PRN Reason: Consult order Risperidone (Risperidone 0.5 Mg Tablet) 0.5 mg PO BEDTIME [facility] Last Admin: 02/22/22 19:49 Dose: 0.5 mg Risperidone (Risperidone 2 Mg Tablet) 2 mg PO BEDTIME [facility] Last Admin: 02/22/22 19:50 Dose: 2 mg Sertraline HCl (Sertraline Hcl 50 Mg Tablet) 50 mg PO BEDTIME [facility] Last Admin: 02/22/22 19:50 Dose: 50 mg Sodium Chloride (0.9 % Sodium Chloride Flush 3 Ml Syringe) 3 ml IVFLUSH QSHIFT [facility] Last Admin: 02/23/22 09:23 Dose: Not Given Zolpidem Tartrate (Zolpidem Tartrate 5 Mg Tablet) 5 mg PO BEDTIME PRN PRN Reason: Insomnia Allergies Allergies Allergy/AdvReac Type Severity Reaction Status Date / Time trazodone Allergy Shortness Verified 09/10/21 18:36 of Breath Assessment & Plan Assessment & Plan (1) Cocaine abuse: Status: Acute Code(s): F14.10 - Cocaine abuse, uncomplicated Assessment and Plan: * at this time patient declines any issues with cocaine or resources related to use * no follow up indicated at this time Total time managing care of this patient today 30____ minutes. 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 Depression Diabetes High cholesterol HTN (hypertension) Hypoglycemia Substance-induced psychotic disorder with delusions Family History Family History Mother CAD (coronary artery disease) [place] (myocardial infarction) Diabetes Father CAD (coronary artery disease) [place] (myocardial infarction) Diabetes Testicular cancer Sister CAD (coronary artery disease) Surgical History Surgical History (Updated 02/23/22 @ 08:07 by Xavier Soriano MD) S/P cholecystectomy (02/22/22) Social History Social History Household Members: Family Household Members Other:: 2 daughters and 1 son Housing: Apartment Do you presently have visiting nurse or other home services: No Alcohol intake: current Alcohol intake frequency: former alcohol drinker Patient Tobacco Use Status: Current someday Tobacco user Tobacco use type: Cigarette Cigarettes Per Day: 4 e-Cigarette/Vaping Use: Never Used Second Hand Smoke Exposure: No Substance Use Type: Crack/Cocaine and Marijuana service: No Current occupational status: unemployed Sexual orientation: Straight/Heterosexual
[2022-02-23 19:24] VITALS: BP 120/70; PULSE 85; RESP 18; TEMP 36.4; O2SAT 98
[2022-02-23] MEDS: Sertraline HCL 50 MG TABLET PO (20:23)
[2022-02-23] MEDS: risperiDONE 0.5 MG TABLET PO (20:23)
[2022-02-23] MEDS: risperiDONE 2 MG TABLET PO (20:23)
[2022-02-23] MEDS: 0.9 % Sodium Chloride Flush 3 ML SYRINGE IVFLUSH (20:23)
[2022-02-23] MEDS: Famotidine 20 MG TABLET 40 MG PO (21:54)
[2022-02-24] MEDS: Acetaminophen 1,000 MG/100 ML PIGGYBACK 400 MG IV ×2 (01:47→07:00)
[2022-02-24 03:00] VITALS: BP 143/95; PULSE 73; RESP 18; TEMP 36.7; O2SAT 100
[2022-02-24] MEDS: Dextrose 5 % and Lactated Ring 1,000 ML 125 ML IVCONT (03:31)
[2022-02-24] MEDS: HYDROmorphone HCl 0.5 MG/0.5 ML SYRINGE IVPUSH ×6 (04:34→23:10)
[2022-02-24] MEDS: oxyCODONE HCl Immed Release 5 MG TABLET 10 MG PO (07:01)
[2022-02-24] MEDS: Atorvastatin Calcium 40 MG TABLET PO (07:37)
[2022-02-24] MEDS: Losartan Potassium 50 MG TABLET 100 MG PO (07:40)
[2022-02-24] MEDS: dilTIAZem HCL CD 120 MG CAP.ER.DEG PO (07:40)
[2022-02-24] MEDS: 0.9 % Sodium Chloride Flush 3 ML SYRINGE IVFLUSH ×3 (07:47→20:05)
[2022-02-24 08:05] LABS: Glucose, Whole Blood 108 mg/dL (60-115)
--- NOTE | 2022-02-24 08:51 | P.PNGS_ITS ---
Subjective Subjective Date of Service: 02/24/22 Interval history: Still having a lot of pain and needing IV pain meds. Tolerating diet. OOB minimally. Passing flatus but no BM. Physical Exam Vital Signs: Vital Signs: Last Vital Signs Temp 98.1 F 02/24/22 03:00 Pulse 73 02/24/22 03:00 Resp 18 02/24/22 03:00 BP 143/95 H 02/24/22 03:00 Pulse Ox 100 02/24/22 03:00 O2 Del Method 02/24/22 03:00 O2 Flow Rate 2 02/24/22 03:00 BMI result Body Mass Index 34.0 Const: General: comfortable, no acute distress and alert Orientation/consciousness: patient oriented x3 Eyes: Sclerae: sclerae normal Resp: Effort & Inspection: normal respiratory effort GI: Other: AIDA drain with serous output Inspection: No distended and Yes incision (clean) Palpation (GI): Soft to palpation, Tenderness to palpation present (GI) (mild, incisional), no guarding and not rigid Percussion: Yes normal to percussion Skin: General skin exam: no rashes or lesions noted Neuro: General: patient oriented x3 Extrem: General: Yes no clubbing, cyanosis or edema Objective Data Active Medications Albuterol Sulfate (Albuterol Sulfate 90 Mcg 8 Gm Inhaler) 2 puff INHALE Q4H PRN PRN Reason: wheezing Allopurinol (Allopurinol 100 Mg Tablet) 100 mg PO DAILY PRN PRN Reason: gout attack Atorvastatin Calcium (Atorvastatin Calcium 40 Mg Tablet) 40 mg PO DAILY [facility] Last Admin: 02/24/22 07:37 Dose: 40 mg Documented By: DION Diltiazem HCl (Diltiazem Hcl Cd 120 Mg Cap.Er.Deg) 120 mg PO DAILY [facility]; Protocol Last Admin: 02/24/22 07:40 Dose: 120 mg Documented By: DION Docusate Sodium (Docusate Sodium 100 Mg Capsule) 100 mg PO BID PRN PRN Reason: Constipation Famotidine (Famotidine 20 Mg Tablet) 40 mg PO BID PRN PRN Reason: heartburn Last Admin: 02/23/22 21:54 Dose: 40 mg Documented By: OZORALB Hydromorphone HCl (Hydromorphone Hcl 0.5 Mg/0.5 Ml Syringe) 0.5 mg IVPUSH Q3H PRN; Protocol PRN Reason: Pain, Severe (Pain Scale 7-10) Last Admin: 02/24/22 07:37 Dose: 0.5 mg Documented By: DION Dextrose/Lactated Ringer's (D5lr) 1,000 mls @ 125 mls/hr IVCONT .Q8H [facility] Last Admin: 02/24/22 03:31 Dose: 125 mls/hr Documented By: FRANK Acetaminophen (Ofirmev) 1,000 mg in 100 mls @ 400 mls/hr IV Q6H [facility] Last Infusion: 02/24/22 08:02 Dose: 0 mls/hr Documented By: DION Losartan Potassium (Losartan Potassium 50 Mg Tablet) 100 mg PO DAILY [facility]; Protocol Last Admin: 02/24/22 07:40 Dose: 100 mg Documented By: DION Ondansetron HCl (Ondansetron Hcl 4 Mg/2 Ml Vial) 4 mg IVPUSH QID PRN PRN Reason: Nausea Last Admin: 02/22/22 08:46 Dose: 4 mg Documented By: TAYLOR Oxycodone HCl (Oxycodone Hcl Immed Release 5 Mg Tablet) 5 mg PO Q6H PRN PRN Reason: Pain, Severe (Pain Scale 7-10) Last Admin: 02/23/22 21:54 Dose: 5 mg Documented By: FRANK Oxycodone HCl (Oxycodone Hcl Immed Release 5 Mg Tablet) 10 mg PO Q4H PRN PRN Reason: Pain, Severe (Pain Scale 7-10) Last Admin: 02/24/22 07:01 Dose: 10 mg Documented By: MARYANN Pharmacy Consult (Consult Rx Perform Med Rec) 1 each MISCELLANE ONCE PRN PRN Reason: Consult order Risperidone (Risperidone 0.5 Mg Tablet) 0.5 mg PO BEDTIME [facility] Last Admin: 02/23/22 20:23 Dose: 0.5 mg Documented By: FRANK Risperidone (Risperidone 2 Mg Tablet) 2 mg PO BEDTIME [facility] Last Admin: 02/23/22 20:23 Dose: 2 mg Documented By: FRANK Sertraline HCl (Sertraline Hcl 50 Mg Tablet) 50 mg PO BEDTIME [facility] Last Admin: 02/23/22 20:23 Dose: 50 mg Documented By: MOOORALAlisia Sodium Chloride (0.9 % Sodium Chloride Flush 3 Ml Syringe) 3 ml IVFLUSH QSHIFT [facility] Last Admin: 02/24/22 07:47 Dose: 3 ml Documented By: DION Zolpidem Tartrate (Zolpidem Tartrate 5 Mg Tablet) 5 mg PO BEDTIME PRN PRN Reason: Insomnia Labs 02/23/22 05:41 02/21/22 07:56 Labs: Laboratory Results - last 24 hr 02/24/22 07:48 POC Glucose 108 Microbiology Microbiology Results: Microbiology 02/21/22 11:44 Blood Culture - Preliminary Blood - Venous No growth after 48 hours. 02/21/22 11:44 Blood Culture - Preliminary Blood - Venous No growth after 48 hours. Procedures Date of Service Date of Service: 02/24/22 Progress Note: A&P Assessment and plan (1) Cholecystitis: Status: Acute (2) S/P cholecystectomy: Status: Acute Plan POD #2 s/p lap attempted converted to open cholecystectomy for acute cholecystitis. Found to have dense omental adhesions to gallbladder, gallbladder with significant edema and wall thickening. He is doing fairly well post op but still requiring IV analgesics for pain. VSS. Abd is soft, mild incisional tenderness, incision clean. AIDA output remains low and mostly serous- removed. Continue pain control- encouraged to use PO analgesics in preparation for discharge. Strongly encouraged OOB and ambulation of halls today. Begin colace. Hospitalists following, appreciate input. Home when pain controlled on oral analgesics. Time Spent With Patient Time: Total time managing care of this patient today ____ minutes. Quality Stroke Does the patient have a stroke diagnosis?: No VTE Prior VTE?: No VTE Risk Level:: Surgical - moderate VTE Device Contraindication: N/A - Device Ordered VTE Drug Contraindication: Treatment Not Indicated
[2022-02-24] MEDS: Famotidine 20 MG TABLET 40 MG PO (09:27)
[2022-02-24] MEDS: Docusate Sodium 100 MG CAPSULE PO ×2 (09:40→20:10)
[2022-02-24 11:00] VITALS: BP 129/78; PULSE 66; RESP 18; TEMP 36.6; O2SAT 96
[2022-02-24 11:43] LABS: Glucose, Whole Blood 107 mg/dL (60-115)
--- NOTE | 2022-02-24 11:55 | PC.NURSE ---
MD removed AIDA drain @ bedside, dsg noted to site.
[2022-02-24] MEDS: Acetaminophen 325 MG TABLET 650 MG PO ×2 (16:18→20:22)
[2022-02-24 16:21] LABS: Glucose, Whole Blood 108 mg/dL (60-115)
[2022-02-24 19:00] VITALS: BP 119/75; PULSE 71; RESP 18; TEMP 36.4; O2SAT 96
[2022-02-24] MEDS: risperiDONE 2 MG TABLET PO (20:10)
[2022-02-24] MEDS: Sertraline HCL 50 MG TABLET PO (20:10)
[2022-02-24] MEDS: risperiDONE 0.5 MG TABLET PO (20:10)
[2022-02-24 21:00] LABS: Glucose, Whole Blood 101 mg/dL (60-115)
[2022-02-25 03:00] VITALS: BP 113/58; PULSE 59; RESP 18; TEMP 36.7; O2SAT 96
[2022-02-25] MEDS: HYDROmorphone HCl 0.5 MG/0.5 ML SYRINGE IVPUSH ×5 (03:38→21:41)
[2022-02-25] MEDS: Acetaminophen 325 MG TABLET 650 MG PO ×4 (03:42→21:39)
[2022-02-25 08:07] LABS: Glucose, Whole Blood 95 mg/dL (60-115)
[2022-02-25] MEDS: dilTIAZem HCL CD 120 MG CAP.ER.DEG PO (08:15)
[2022-02-25] MEDS: Losartan Potassium 50 MG TABLET 100 MG PO (08:16)
[2022-02-25] MEDS: 0.9 % Sodium Chloride Flush 3 ML SYRINGE IVFLUSH ×3 (08:16→19:33)
[2022-02-25] MEDS: oxyCODONE HCl Immed Release 5 MG TABLET 10 MG PO ×2 (08:16→14:15)
[2022-02-25] MEDS: Docusate Sodium 100 MG CAPSULE PO ×2 (08:16→21:04)
[2022-02-25] MEDS: Atorvastatin Calcium 40 MG TABLET PO (08:16)
--- NOTE | 2022-02-25 09:46 | PM.PNGS ---
Subjective Subjective Date of Service: 02/25/22 Patient reports: still having pain, tolerating a regular diet and flatus Interval history: The patient is seen in coverage for Dr. Soriano Patient reports ongoing pain. He is seen with the help of the hospital relief map modeler. He did tolerate breakfast and denies chest pain, nausea, shortness of breath. He reports his incisional pain is controlled. Physical Exam Vital Signs: Vital Signs: Last Vital Signs Temp 98.1 F 02/25/22 03:00 Pulse 59 02/25/22 03:00 Resp 18 02/25/22 03:00 BP 113/58 L 02/25/22 03:00 Pulse Ox 96 02/25/22 03:00 O2 Del Method 02/25/22 03:00 O2 Flow Rate 1 02/24/22 11:00 BMI result Body Mass Index 34.0 On exam he is anicteric His incision is healing well His abdomen has appropriate tenderness with no peritoneal sign Objective Data Active Medications Acetaminophen (Acetaminophen 325 Mg Tablet) 650 mg PO Q6H [facility] Last Admin: 02/25/22 08:17 Dose: 650 mg Documented By: TOBY Albuterol Sulfate (Albuterol Sulfate 90 Mcg 8 Gm Inhaler) 2 puff INHALE Q4H PRN PRN Reason: wheezing Allopurinol (Allopurinol 100 Mg Tablet) 100 mg PO DAILY PRN PRN Reason: gout attack Atorvastatin Calcium (Atorvastatin Calcium 40 Mg Tablet) 40 mg PO DAILY [facility] Last Admin: 02/25/22 08:16 Dose: 40 mg Documented By: TOBY Diltiazem HCl (Diltiazem Hcl Cd 120 Mg Cap.Er.Deg) 120 mg PO DAILY [facility]; Protocol Last Admin: 02/25/22 08:15 Dose: 120 mg Documented By: TOBY Docusate Sodium (Docusate Sodium 100 Mg Capsule) 100 mg PO BID [facility] Last Admin: 02/25/22 08:16 Dose: 100 mg Documented By: TOBY Famotidine (Famotidine 20 Mg Tablet) 40 mg PO BID PRN PRN Reason: heartburn Last Admin: 02/24/22 09:27 Dose: 40 mg Documented By: DION Hydromorphone HCl (Hydromorphone Hcl 0.5 Mg/0.5 Ml Syringe) 0.5 mg IVPUSH Q3H PRN; Protocol PRN Reason: Pain, Severe (Pain Scale 7-10) Last Admin: 02/25/22 09:35 Dose: 0.5 mg Documented By: TOBY Ibuprofen (Ibuprofen 600 Mg Tablet) 600 mg PO Q6H PRN PRN Reason: abdominal pain Losartan Potassium (Losartan Potassium 50 Mg Tablet) 100 mg PO DAILY [facility]; Protocol Last Admin: 02/25/22 08:16 Dose: 100 mg Documented By: TOBY Ondansetron HCl (Ondansetron Hcl 4 Mg/2 Ml Vial) 4 mg IVPUSH QID PRN PRN Reason: Nausea Last Admin: 02/22/22 08:46 Dose: 4 mg Documented By: SONG-RIVLA Oxycodone HCl (Oxycodone Hcl Immed Release 5 Mg Tablet) 5 mg PO Q6H PRN PRN Reason: Pain, Severe (Pain Scale 7-10) Last Admin: 02/23/22 21:54 Dose: 5 mg Documented By: OZORALB Oxycodone HCl (Oxycodone Hcl Immed Release 5 Mg Tablet) 10 mg PO Q4H PRN PRN Reason: Pain, Severe (Pain Scale 7-10) Last Admin: 02/25/22 08:16 Dose: 10 mg Documented By: TOBY Pharmacy Consult (Consult Rx Perform Med Rec) 1 each MISCELLANE ONCE PRN PRN Reason: Consult order Risperidone (Risperidone 0.5 Mg Tablet) 0.5 mg PO BEDTIME [facility] Last Admin: 02/24/22 20:10 Dose: 0.5 mg Documented By: NEW Risperidone (Risperidone 2 Mg Tablet) 2 mg PO BEDTIME [facility] Last Admin: 02/24/22 20:10 Dose: 2 mg Documented By: NEW Sertraline HCl (Sertraline Hcl 50 Mg Tablet) 50 mg PO BEDTIME [facility] Last Admin: 02/24/22 20:10 Dose: 50 mg Documented By: NEW Sodium Chloride (0.9 % Sodium Chloride Flush 3 Ml Syringe) 3 ml IVFLUSH QSHICHI [facility] Last Admin: 02/25/22 08:16 Dose: 3 ml Documented By: TOBY Zolpidem Tartrate (Zolpidem Tartrate 5 Mg Tablet) 5 mg PO BEDTIME PRN PRN Reason: Insomnia Labs 02/23/22 05:41 02/21/22 07:56 Labs: Laboratory Results - last 24 hr 02/24/22 02/24/22 02/24/22 11:38 16:10 20:55 POC Glucose 107 108 101 02/25/22 07:54 POC Glucose 95 Procedures Date of Service Date of Service: 02/25/22 Progress Note: A&P Assessment and plan (1) S/P cholecystectomy: Status: Acute (2) Cholecystitis: Status: Acute (3) Cocaine abuse: Status: Acute Plan Continue present management Will reassess for possible discharge tomorrow. Time Spent With Patient Time: Total time managing care of this patient today ____ minutes. Quality Stroke Does the patient have a stroke diagnosis?: No VTE Prior VTE?: No VTE Risk Level:: Surgical - moderate VTE Device Contraindication: N/A - Device Ordered VTE Drug Contraindication: Treatment Not Indicated
[2022-02-25 11:28] LABS: Glucose, Whole Blood 98 mg/dL (60-115)
[2022-02-25] MEDS: Ibuprofen 600 MG TABLET PO (17:40)
[2022-02-25 19:00] VITALS: BP 115/73; PULSE 78; RESP 16; TEMP 36.6; O2SAT 93
[2022-02-25 20:53] LABS: Glucose, Whole Blood 114 mg/dL (60-115)
[2022-02-25] MEDS: risperiDONE 0.5 MG TABLET PO (21:04)
[2022-02-25] MEDS: Sertraline HCL 50 MG TABLET PO (21:04)
[2022-02-25] MEDS: risperiDONE 2 MG TABLET PO (21:04)
[2022-02-26 03:00] VITALS: BP 106/62; PULSE 68; RESP 18; TEMP 37.1; O2SAT 95
[2022-02-26] MEDS: Acetaminophen 325 MG TABLET 650 MG PO ×4 (03:31→20:38)
[2022-02-26] MEDS: oxyCODONE HCl Immed Release 5 MG TABLET 10 MG PO ×3 (03:31→17:48)
[2022-02-26] MEDS: Ibuprofen 600 MG TABLET PO ×2 (07:19→17:47)
[2022-02-26] MEDS: 0.9 % Sodium Chloride Flush 3 ML SYRINGE IVFLUSH ×3 (07:19→20:39)
[2022-02-26] MEDS: Losartan Potassium 50 MG TABLET 100 MG PO (07:20)
[2022-02-26] MEDS: dilTIAZem HCL CD 120 MG CAP.ER.DEG PO (07:20)
[2022-02-26] MEDS: Atorvastatin Calcium 40 MG TABLET PO (07:20)
[2022-02-26] MEDS: Docusate Sodium 100 MG CAPSULE PO ×2 (07:20→20:38)
[2022-02-26] MEDS: HYDROmorphone HCl 0.5 MG/0.5 ML SYRINGE IVPUSH ×3 (07:21→22:02)
[2022-02-26 07:29] VITALS: BP 101/75; PULSE 63; RESP 17; O2SAT 95
[2022-02-26 08:32] LABS: Glucose, Whole Blood 86 mg/dL (60-115)
[2022-02-26 09:01] VITALS: TEMP 36.5
--- NOTE | 2022-02-26 09:06 | PM.PNGS ---
Subjective Subjective Date of Service: 02/26/22 Patient reports: still having pain and tolerating a regular diet Interval history: The patient is seen in coverage for Dr. Soriano Patient is seen length and a park interpreter and he reports continued and ongoing pain and that he is occasionally requiring IV Dilaudid in addition to oxycodone. He is tolerating his diet and denies any nausea, vomiting, chest pain, shortness of breath. He reports he is passing gas, decided to take a shower yesterday and overall feeling well but concerned about pain management. Physical Exam Vital Signs: Vital Signs: Last Vital Signs Temp 97.7 F 02/26/22 09:01 Pulse 63 02/26/22 07:29 Resp 17 02/26/22 07:29 BP 101/75 02/26/22 07:29 Pulse Ox 95 02/26/22 07:29 O2 Del Method 02/26/22 07:29 O2 Flow Rate 1 02/24/22 11:00 BMI result Body Mass Index 34.0 On exam he is anicteric and nontoxic His abdominal incision is healing well with no evidence of infection. Mild, appropriate incisional tenderness is present no peritoneal sign is present Objective Data Active Medications Acetaminophen (Acetaminophen 325 Mg Tablet) 650 mg PO Q6H [facility] Last Admin: 02/26/22 08:34 Dose: 650 mg Documented By: TOBY Albuterol Sulfate (Albuterol Sulfate 90 Mcg 8 Gm Inhaler) 2 puff INHALE Q4H PRN PRN Reason: wheezing Allopurinol (Allopurinol 100 Mg Tablet) 100 mg PO DAILY PRN PRN Reason: gout attack Atorvastatin Calcium (Atorvastatin Calcium 40 Mg Tablet) 40 mg PO DAILY [facility] Last Admin: 02/26/22 07:20 Dose: 40 mg Documented By: TOBY Diltiazem HCl (Diltiazem Hcl Cd 120 Mg Cap.Er.Deg) 120 mg PO DAILY [facility]; Protocol Last Admin: 02/26/22 07:20 Dose: 120 mg Documented By: TOBY Docusate Sodium (Docusate Sodium 100 Mg Capsule) 100 mg PO BID [facility] Last Admin: 02/26/22 07:20 Dose: 100 mg Documented By: TOBY Famotidine (Famotidine 20 Mg Tablet) 40 mg PO BID PRN PRN Reason: heartburn Last Admin: 02/24/22 09:27 Dose: 40 mg Documented By: DION Hydromorphone HCl (Hydromorphone Hcl 0.5 Mg/0.5 Ml Syringe) 0.5 mg IVPUSH Q3H PRN; Protocol PRN Reason: Pain, Severe (Pain Scale 7-10) Last Admin: 02/26/22 07:21 Dose: 0.5 mg Documented By: TOBY Ibuprofen (Ibuprofen 600 Mg Tablet) 600 mg PO Q6H PRN PRN Reason: abdominal pain Last Admin: 02/26/22 07:19 Dose: 600 mg Documented By: TOBY Losartan Potassium (Losartan Potassium 50 Mg Tablet) 100 mg PO DAILY [facility]; Protocol Last Admin: 02/26/22 07:20 Dose: 100 mg Documented By: TOBY Ondansetron HCl (Ondansetron Hcl 4 Mg/2 Ml Vial) 4 mg IVPUSH QID PRN PRN Reason: Nausea Last Admin: 02/22/22 08:46 Dose: 4 mg Documented By: TAYLOR Oxycodone HCl (Oxycodone Hcl Immed Release 5 Mg Tablet) 5 mg PO Q6H PRN PRN Reason: Pain, Severe (Pain Scale 7-10) Last Admin: 02/23/22 21:54 Dose: 5 mg Documented By: FRANK Oxycodone HCl (Oxycodone Hcl Immed Release 5 Mg Tablet) 10 mg PO Q4H PRN PRN Reason: Pain, Severe (Pain Scale 7-10) Last Admin: 02/26/22 03:31 Dose: 10 mg Documented By: NEW Pharmacy Consult (Consult Rx Perform Med Rec) 1 each MISCELLANE ONCE PRN PRN Reason: Consult order Risperidone (Risperidone 0.5 Mg Tablet) 0.5 mg PO BEDTIME [facility] Last Admin: 02/25/22 21:04 Dose: 0.5 mg Documented By: NEW Risperidone (Risperidone 2 Mg Tablet) 2 mg PO BEDTIME [facility] Last Admin: 02/25/22 21:04 Dose: 2 mg Documented By: NEW Sertraline HCl (Sertraline Hcl 50 Mg Tablet) 50 mg PO BEDTIME [facility] Last Admin: 02/25/22 21:04 Dose: 50 mg Documented By: NEW Sodium Chloride (0.9 % Sodium Chloride Flush 3 Ml Syringe) 3 ml IVFLUSH QSHIFT [facility] Last Admin: 02/26/22 07:19 Dose: 3 ml Documented By: TOBY Zolpidem Tartrate (Zolpidem Tartrate 5 Mg Tablet) 5 mg PO BEDTIME PRN PRN Reason: Insomnia Labs 02/23/22 05:41 02/21/22 07:56 Labs: Laboratory Results - last 24 hr 02/25/22 02/25/22 02/26/22 11:23 20:49 07:34 POC Glucose 98 114 86 Procedures Date of Service Date of Service: 02/26/22 Progress Note: A&P Assessment and plan (1) S/P cholecystectomy: Status: Acute (2) Cholecystitis: Status: Acute (3) Cocaine abuse: Status: Acute (4) Chronic schizophrenia: Status: Acute (5) HTN (hypertension): Status: Acute Plan Continue present management Trend labs which are ordered for tomorrow 02/27/22 The patient is instructed to try to minimize any IV narcotic use and given his history of substance abuse, am reticent to discharge him with oral narcotics Dr. Soriano to return in resume care tomorrow Time Spent With Patient Time: Total time managing care of this patient today ____ minutes. Quality Stroke Does the patient have a stroke diagnosis?: No VTE Prior VTE?: No VTE Risk Level:: Surgical - moderate VTE Device Contraindication: N/A - Device Ordered VTE Drug Contraindication: Treatment Not Indicated
[2022-02-26 11:44] LABS: Glucose, Whole Blood 111 mg/dL (60-115)
[2022-02-26] MEDS: Famotidine 20 MG TABLET 40 MG PO (14:33)
[2022-02-26 16:29] LABS: Glucose, Whole Blood 110 mg/dL (60-115)
[2022-02-26 16:44] VITALS: BP 120/70; PULSE 64; RESP 16; TEMP 36.7; O2SAT 94
[2022-02-26 20:30] LABS: Glucose, Whole Blood 111 mg/dL (60-115)
[2022-02-26] MEDS: Sertraline HCL 50 MG TABLET PO (20:38)
[2022-02-26] MEDS: risperiDONE 0.5 MG TABLET PO (20:38)
[2022-02-26] MEDS: risperiDONE 2 MG TABLET PO (20:39)
[2022-02-27 00:11] VITALS: BP 107/62; PULSE 62; RESP 18; TEMP 36.6; O2SAT 98
[2022-02-27] MEDS: oxyCODONE HCl Immed Release 5 MG TABLET 10 MG PO ×2 (01:47→07:13)
[2022-02-27] MEDS: Acetaminophen 325 MG TABLET 650 MG PO ×2 (03:20→09:19)
[2022-02-27] MEDS: Ibuprofen 600 MG TABLET PO (06:15)
[2022-02-27] MEDS: HYDROmorphone HCl 0.5 MG/0.5 ML SYRINGE IVPUSH (06:15)
[2022-02-27 06:58] LABS: MANUAL DIFF FLAG NO
[2022-02-27 07:21] LABS: Basophils Absolute Auto 0.1 X10*3/uL (0.0-0.2); Basophils Percent Auto 0.7 % (0-2); Eosinophils Absolute Auto 0.4 X10*3/uL (0.0-0.4); Eosinophils Percent Auto 4.8 % (0-4); Hematocrit 35.8 % (42.0-52.0); Hemoglobin 11.5 g/dl (14.0-18.0); Imm Gran Abs Auto 0.04 X10*3/uL (0.00-0.03); Imm Gran Pct Auto 0.5 % (0.0-0.4); Lymphocytes Absolute Auto 2.9 X10*3/uL (1.2-4.9); Lymphocytes Percent Auto 38.6 % (20-40); Mean Corpuscular HGB Conc 32.1 g/dl (31.0-36.0); Mean Corpuscular Hemoglobin 27.1 pg (27.0-33.0); Mean Corpuscular Volume 84.4 fL (80.0-98.0); Mean Platelet Volume 9.7 fL (9.4-12.4); Monocytes Absolute Auto 0.4 X10*3/uL (0.1-1.2); Monocytes Percent Auto 5.4 % (2-11); Neutrophils Absolute Auto 3.7 x10*3/uL (2.0-8.3); Platelet Count 292 X10*3/uL (160-400); Red Blood Count 4.24 X10*6/uL (4.60-5.80); Red Cell Distribution Width 13.7 % (11.0-16.0); White Blood Count 7.5 X10*3/uL (4.8-10.8)
[2022-02-27 07:25] LABS: Alanine Aminotransferase 17 U/L (0-40); Albumin Level 3.5 g/dL (3.5-5.0); Alkaline Phosphatase 55 U/L (39-117); Anion Gap 13 (12-20); Aspartate Amino Transferase 13 U/L (5-37); Bilirubin Total 0.3 mg/dL (0.0-1.0); Blood Urea Nitrogen 22 mg/dL (9-16); Calcium 8.7 mg/dL (8.4-10.2); Carbon Dioxide 28 mmol/L (22-29); Chloride 105 mmol/L (96-108); Estimated Glomerular Filt Rate > 60; Glucose Random 78 mg/dL (60-115); Potassium 4.6 mmol/L (3.3-5.1); Sodium 141 mmol/L (135-145); Total Protein 5.7 g/dL (6.5-8.0)
[2022-02-27 07:33] LABS: Glucose, Whole Blood 71 mg/dL (60-115)
[2022-02-27 08:55] VITALS: BP 142/91; PULSE 67; RESP 18; TEMP -13.4; TEMP 7.8; O2SAT 96
[2022-02-27] MEDS: 0.9 % Sodium Chloride Flush 3 ML SYRINGE IVFLUSH (09:20)
[2022-02-27] MEDS: Atorvastatin Calcium 40 MG TABLET PO (09:20)
[2022-02-27] MEDS: dilTIAZem HCL CD 120 MG CAP.ER.DEG PO (09:20)
[2022-02-27] MEDS: Losartan Potassium 50 MG TABLET 100 MG PO (09:20)
[2022-02-27] MEDS: Docusate Sodium 100 MG CAPSULE PO (09:20)
[2022-02-27] MEDS: allopurinoL 100 MG TABLET PO (09:36)
[2022-02-27] MEDS: Famotidine 20 MG TABLET 40 MG PO (09:36)
--- NOTE | 2022-02-27 11:42 | MHC.CM.PN ---
PT WILL DC HOME TODAY WITH NO SERVICES PT TO ARRANGE TRANSPORT
--- NOTE | 2022-02-27 13:42 | PM.PNGS ---
Subjective Subjective Date of Service: 02/27/22 Interval history: No events over the weekend. Feels well. Denies significant abdominal pain and is comfortable. Tolerating solid diet. Ambulating without difficulty. Physical Exam Vital Signs: Vital Signs: Last Vital Signs Temp 7.8 F L 02/27/22 08:55 Pulse 67 02/27/22 08:55 Resp 18 02/27/22 08:55 BP 142/91 H 02/27/22 08:55 Pulse Ox 96 02/27/22 08:55 O2 Del Method 02/27/22 08:55 O2 Flow Rate 1 02/24/22 11:00 BMI result Body Mass Index 34.0 Const: General: comfortable, no acute distress and alert Orientation/consciousness: patient oriented x3 Resp: Effort & Inspection: normal respiratory effort GI: Inspection: No distended and Yes incision (clean) Palpation (GI): Soft to palpation, nontender, no guarding and not rigid Skin: General skin exam: no rashes or lesions noted Neuro: General: patient oriented x3 and moves all extremities Objective Data Labs 02/27/22 05:55 02/27/22 05:55 Labs: Laboratory Results - last 24 hr 02/26/22 02/26/22 02/27/22 16:24 20:26 05:55 MCV 84.4 MCH 27.1 MCHC 32.1 RDW 13.7 Plt Count 292 D MPV 9.7 Immature Gran % (Auto) 0.5 H Neut % (Auto) 50.0 Lymph % (Auto) 38.6 [place] % (Auto) 5.4 Eos % (Auto) 4.8 H Baso % (Auto) 0.7 Lymph # (Auto) 2.9 [place] # (Auto) 0.4 Eos # (Auto) 0.4 Baso # (Auto) 0.1 Abs Immat Gran (auto) 0.04 H Absolute Neuts (auto) 3.7 Absolute Nucleated RBC 0.000 Nucleated RBC % (auto) 0.0 Anion Gap Estim Creat Clear Calc Estimated GFR POC Glucose 110 111 Random Glucose Calcium Total Bilirubin AST ALT Alkaline Phosphatase Total Protein Albumin 02/27/22 02/27/22 05:55 07:18 MCV MCH MCHC RDW Plt Count MPV Immature Gran % (Auto) Neut % (Auto) Lymph % (Auto) [place] % (Auto) Eos % (Auto) Baso % (Auto) Lymph # (Auto) [place] # (Auto) Eos # (Auto) Baso # (Auto) Abs Immat Gran (auto) Absolute Neuts (auto) Absolute Nucleated RBC Nucleated RBC % (auto) Anion Gap 13 Estim Creat Clear Calc 105.0 Estimated GFR > 60 POC Glucose 71 Random Glucose 78 Calcium 8.7 D Total Bilirubin 0.3 AST 13 ALT 17 Alkaline Phosphatase 55 Total Protein 5.7 L Albumin 3.5 Microbiology Microbiology Results: Microbiology 02/21/22 11:44 Blood Culture - Final Blood - Venous No growth after 5 days. 02/21/22 11:44 Blood Culture - Final Blood - Venous No growth after 5 days. Procedures Date of Service Date of Service: 02/27/22 Progress Note: A&P Assessment and plan (1) S/P cholecystectomy: Status: Acute Plan POD #5 s/p lap attempted converted to open cholecystectomy for acute cholecystitis. Found to have dense omental adhesions to gallbladder, gallbladder with significant edema and wall thickening. He is doing well today with pain well controlled, tolerating a solid diet. His abdomen is benign with clean incisions. He feels ready for discharge to home. Stable for discharge to home today with f/u in office in 1 week for staple removal. Patient comfortable with plan. Time Spent With Patient Time: Total time managing care of this patient today ____ minutes. Quality Stroke Does the patient have a stroke diagnosis?: No VTE Prior VTE?: No VTE Risk Level:: Surgical - moderate VTE Device Contraindication: N/A - Device Ordered VTE Drug Contraindication: Treatment Not Indicated
--- NOTE | 2022-02-27 13:46 | PM.DS ---
DS: Providers Provider Date of Service: 02/27/22 Date of admission: 02/21/22 11:45 Date of discharge: 02/27/22 Primary care physician: [facility] Attending physician on admission: Xavier Soriano Consults: 02/21/22 11:16 Consult to General Surgery Stat Consulting Provider: Vito Rojo Reason for consultation: cholecystitis 02/21/22 13:27 Consult to Hospitalist Routine Consulting Provider: Hospitalist Reason For Exam: Acute cholecystitis, hypertension, med management 02/21/22 15:35 Addiction Medicine Routine Consulting Provider: Addiction Covering Reason for consultation: cocaine abuse Attending physician on discharge: Xavier Soriano DS: Diagnosis Discharge Diagnosis (1) S/P cholecystectomy: Status: Acute DS: Summary Hospital Course Hospital Course: HPI AT ADMISSION: Ashu Mcnally is a 51 year old male returning to the hospital with complaints of abdominal pain throughout the upper abdomen. He was recently admitted on 01/14/2022 for similar symptoms which subsequently resolved without surgery. The pain began approximately 03:00 this morning and was very severe and associated with multiple episodes of vomiting. Pain is felt mainly in the upper abdomen, greatest in the right upper quadrant. Symptoms were very similar to his previous episode. Evaluation emergency department revealed tenderness in the right upper quadrant with [place] sign. Laboratories revealed elevated WBC of 13.7. Liver function tests are normal. Ultrasound the abdomen revealed cholelithiasis with thickened gallbladder wall and pericholecystic fluid consistent with acute cholecystitis. HOSPITAL COURSE: He was admitted to the surgical service for further management of the acute cholecystitis. A hospitalist consult was obtained for medical management of the patient. He tested positive for multiple substances on admission and a pre operative echocardiogram was obtained which was essentially normal. An addiction consultation was also requested. The patient denied any issues with cocaine or resources related to use and no further intervention was warranted. On 02/22/22, a laparoscopic attempted converted to open cholecystectomy was performed by Dr. Soriano without complication. Intraoperative findings included an acutely inflamed gallbladder with thickened gallbladder wall and dense adhesions to the anterior surface of the gallbladder. A AIDA drain was placed intraoperatively. The patient tolerated the procedure well. He had an uncomplicated but slow recovery course. He remained inpatient several days for pain control. His AIDA drain output remained nonbilious and was scanty and therefore was removed on POD #2. On the day of discharge, he was tolerating a solid diet. His pain was well controlled on PO analgesics. He was ambulating without difficulty. His abdomen was benign with clean incisions. He was discharged to home on 02/27/22 in stable condition. He is to follow up in the office in 1 week for staple removal. Status at Discharge Functional status at discharge: independent ambulation Overall status at discharge: patient is progressing back to baseline Time Spent with Patient Time attestation: Total time managing care of this patient today ____ minutes. Discharge coordination time: Greater than 30 minutes Quality: Safe Use of Opioids Does Pt have an Active Cancer Diagnosis on the Problem List?: No Quality: Stroke Does the patient have a stroke diagnosis?: No Physical Exam Vital Signs: Vital Signs: Last Vital Signs Temp 7.8 F L 02/27/22 08:55 Pulse 67 02/27/22 08:55 Resp 18 02/27/22 08:55 BP 142/91 H 02/27/22 08:55 Pulse Ox 96 02/27/22 08:55 O2 Del Method 02/27/22 08:55 O2 Flow Rate 1 02/24/22 11:00 BMI result Body Mass Index 34.0 Const: General: comfortable, no acute distress and alert Orientation/consciousness: patient oriented x3 Resp: Effort & Inspection: normal respiratory effort GI: Inspection: No distended and Yes incision (clean) Palpation (GI): Soft to palpation, nontender, no guarding and not rigid Skin: General skin exam: no rashes or lesions noted Neuro: General: patient oriented x3 and moves all extremities DS: Data Data Completed and Pending Completed studies during hospitalization [Text1]: 02/22/22 12:03 Surgical [PTH] Routine Gallbladder, cholecystectomy: Acute gangrenous cholecystitis with hemorrhage, necrosis, and focal cholesterolosis. Procedures Inspection of Spinal Canal, Percutaneous Approach (08/04/20) Labs on day of discharge: Laboratory Results - last 24 hr 02/26/22 02/26/22 02/27/22 16:24 20:26 05:55 WBC 7.5 RBC 4.24 L Hgb 11.5 L Hct 35.8 L MCV 84.4 MCH 27.1 MCHC 32.1 RDW 13.7 Plt Count 292 D MPV 9.7 Immature Gran % (Auto) 0.5 H Neut % (Auto) 50.0 Lymph % (Auto) 38.6 [place] % (Auto) 5.4 Eos % (Auto) 4.8 H Baso % (Auto) 0.7 Lymph # (Auto) 2.9 [place] # (Auto) 0.4 Eos # (Auto) 0.4 Baso # (Auto) 0.1 Abs Immat Gran (auto) 0.04 H Absolute Neuts (auto) 3.7 Absolute Nucleated RBC 0.000 Nucleated RBC % (auto) 0.0 Sodium Potassium Chloride Carbon Dioxide Anion Gap BUN Creatinine Estim Creat Clear Calc Estimated GFR POC Glucose 110 111 Random Glucose Calcium Total Bilirubin AST ALT Alkaline Phosphatase Total Protein Albumin 02/27/22 02/27/22 05:55 07:18 WBC RBC Hgb Hct MCV MCH MCHC RDW Plt Count MPV Immature Gran % (Auto) Neut % (Auto) Lymph % (Auto) [place] % (Auto) Eos % (Auto) Baso % (Auto) Lymph # (Auto) [place] # (Auto) Eos # (Auto) Baso # (Auto) Abs Immat Gran (auto) Absolute Neuts (auto) Absolute Nucleated RBC Nucleated RBC % (auto) Sodium 141 Potassium 4.6 Chloride 105 Carbon Dioxide 28 Anion Gap 13 BUN 22 H Creatinine 0.95 Estim Creat Clear Calc 105.0 Estimated GFR > 60 POC Glucose 71 Random Glucose 78 Calcium 8.7 D Total Bilirubin 0.3 AST 13 ALT 17 Alkaline Phosphatase 55 Total Protein 5.7 L Albumin 3.5 Discharge Plan Discharge Anticipated Discharge Date/Time: 02/25/22 12:03 Patient Disposition: Home, Self-Care Discharge Diagnosis: s/p cholecystectomy Referrals: [facility] [Primary Care Provider] - 1 Week Xavier Soriano MD [Physician] - 1 Week Discharge Medications: New oxycodone 5 mg tablet 5 mg PO Q4H PRN (Reason: pain (scale score 7-10)) Qty: 20 0RF Rx Instructions: Partial Fill upon patient request. Continued albuterol sulfate 90 mcg/actuation HFA aerosol inhaler 2 puff inhalation Q4-6H PRN (Reason: wheezing) ibuprofen 600 mg Tablet 600 mg PO Q8H PRN (Reason: Pain, Severe (Pain Scale 7-10)) Qty: 30 0RF famotidine 40 mg tablet 1 tab PO BID PRN (Reason: heartburn) clonazepam 1 mg tablet 1 tab PO BEDTIME PRN (Reason: insomnia) risperidone 2 mg tablet 1 tab PO BEDTIME atorvastatin 40 mg tablet 1 tab PO DAILY allopurinol 100 mg tablet 1 tab PO DAILY PRN (Reason: gout attack) diltiazem HCl [Tiadylt ER] 120 mg capsule,extended release 24 hr 1 cap PO DAILY losartan 100 mg tablet 1 tab PO DAILY cyclobenzaprine 10 mg tablet 1 tab PO TID PRN (Reason: muscle spasm) sertraline 50 mg tablet 1 tab PO BEDTIME risperidone 0.5 mg tablet 1 tab PO BEDTIME melatonin 10 mg Tablet 10 mg PO BEDTIME PRN (Reason: Sleep) Discharge Orders: Discharge Order (Routine); Ordered 02/27/22 Ordered By: Joycelyn Christianson Diet: Diabetic diet Activity on Discharge: No heavy lifting Stand Alone Forms: Patient Portal Discharge page Print Language: Romansh Activity Restrictions/Additional Instructions: If the incision area is tender, you may apply an ice pack for short intervals (No more than 20 minutes on, followed by at least 20 minutes off). Do not apply heat. Do not use creams, lotions, or topical antibiotics unless instructed to do so by your surgeon. These can cause infection or allergic reaction. Ok to shower. You have glenis closing your incision and these will be removed approximately 10-14 days after surgery. NO HEAVY LIFTING (>10lbs) or strenuous activity. Follow up in office. ([phone]) Call Your Doctor If: -Your temperature exceeds 101.5? F -You experience excessive pain or swelling -You have an unexpected reaction to medication -You have excessive bleeding -You experience continued vomiting/nausea -Your incision begins to separate -Your incision shows signs of infection such as increased redness, swelling, excessive pain, drainage (light blood or clear fluid is normal) or heat Care Plan Goals: Return to baseline health and gradual return to activity following recovery period. Health Concerns: acute cholecystitis HTN, high cholesterol, DM substance abuse Plan of Treatment: s/p cholecystectomy F/u in office in 1 week Assessment: Doing well post op Discharge Date/Time: 02/27/22 11:40
== END 2022-02-27 11:40 | disposition home or self-care (01) | DRG 263 ==
LOC: HO.ED 11:43 → HO.EDOVER 11:53 → HO.S3 19:17
PROVIDERS: Physician Assistant; Physician Assistant Surgical; Surgery; Admitting Provider Surgery; Emergency Provider Emergency Medicine; Visit Provider Surgery
PROC: 0FT44ZZ Resection of Gallbladder, Percutaneous Endoscopic Approach (ICD-10-PCS; CPT 47562; principal; 2022-02-22 10:50)
DX: K80.00 Calculus of gallbladder with acute cholecystitis without obstruction (principal); E78.00 Pure hypercholesterolemia, unspecified; K82.8 Other specified diseases of gallbladder; F14.10 Cocaine abuse, uncomplicated; F19.10 Other psychoactive substance abuse, uncomplicated; F17.210 Nicotine dependence, cigarettes, uncomplicated; R73.03 Prediabetes; F32.A Depression, unspecified; G47.33 Obstructive sleep apnea (adult) (pediatric); J45.20 Mild intermittent asthma, uncomplicated; F20.9 Schizophrenia, unspecified; M10.9 Gout, unspecified; I10 Essential (primary) hypertension; Z20.822 Contact with and (suspected) exposure to COVID-19; Z71.6 Tobacco abuse counseling; Z88.8 Allergy status to other drugs, medicaments and biological substances; Z79.899 Other long term (current) drug therapy
CPT/HCPCS: 36415; 76705; 80053; 80307; 81003; 82947; 83605; 83735; 85025; 87040; 87635; 88304; 93005; 93306; 93356; 96374; 96375; 99285; J0131; J1100; J1170; J1885; J2060; J2250; J2370; J2405; J2543; J3010; Q9957

== ENCOUNTER → 2022-03-16 09:51 | Outpatient (BNVA) | payer MEDICAID, SELFPAY | PROVIDERS: PCP Registered Nurse; Visit Provider Surgery | DX: Z48.02 Encounter for removal of sutures (principal) | CPT/HCPCS: 99211 ==

== ENCOUNTER 2022-04-11 04:08 | Emergency (ER) | payer OTHER, MEDICAID, SELFPAY ==
[2022-04-11 04:15] VITALS: BP 130/107; BP 180/120; PULSE 116; PULSE 86; RESP 16; O2SAT 98; O2SAT 99; BMI 26.6
[2022-04-11 05:42] VITALS: BP 141/105; PULSE 107; RESP 20; O2SAT 99
--- NOTE | 2022-04-11 06:04 | PC.NURSE ---
pt alert and oriented, to self, date and able to state that he is a hospital but not what hospital, pt is hyper-verbal oral mucosal dry this rn offered the pt water but pr refused because he states that his is putting something in his water and changes his cocaine out with something else that makes him see and hear things, state he is seeing things while in the hospital but not able to explain what he seeing also states that his is putting some cream all over him that is giving him some electrical shocks and that she is changing his medications. pt reports pain in his joints but especially in his knees. medical charge entry specialist at bedside.
[2022-04-11 06:08] LABS: Appearance Urine Cloudy; Color Urine Dark Yellow; Glucose Urine UA Negative (Negative); Leukocyte Esterase Urine Negative (Negative); Nitrite Urine Negative (Negative); PH 5.5 (5.0-9.0); Specific Gravity - Urine >= 1.030 (1.005-1.025); UMIC TRIGGER UACC YES; Urine Blood Negative (Negative); Urine Ketones 80 mg/dL (Negative); Urine Protein 100 (2+) mg/dL (Neg-Trace)
--- NOTE | 2022-04-11 06:12 | ED.PSYCH ---
HPI - Psych General Chief Complaint: ETOH/Substance Use Stated Complaint: etoh with drug use Time Seen by Provider: 04/11/22 04:46 Source: patient, EMS and senior policy advisor Mode of arrival: EMS History of Present Illness HPI Narrative: 51-year-old male who is arriving via EMS, EMS reports that patient is here for evaluation of alcohol and cocaine use. Patient has some difficulty with providing extensive history as he appears to be very disorganized, stating that his has given him some drugs and he wants to have blood work to test him for poisoning. Patient points to the TV and states that he knows that there are people there and says that he is hearing voices. Related Data Home Medications Medication Instructions Recorded Confirmed albuterol sulfate 90 mcg/actuation 2 puff inhalation Q4-6H PRN 08/03/20 03/16/22 aerosol inhaler wheezing allopurinol 100 mg tablet 1 tab PO DAILY PRN gout attack 09/06/21 03/16/22 atorvastatin 40 mg tablet 1 tab PO DAILY 09/06/21 03/16/22 clonazepam 1 mg tablet 1 tab PO BEDTIME PRN insomnia 09/06/21 03/16/22 diltiazem HCl 120 mg capsule,24 1 cap PO DAILY 09/06/21 03/16/22 hr,extended release (Tiadylt ER) famotidine 40 mg tablet 1 tab PO BID PRN heartburn 09/06/21 03/16/22 losartan 100 mg tablet 1 tab PO DAILY 09/06/21 03/16/22 risperidone 2 mg tablet 1 tab PO BEDTIME 09/06/21 03/16/22 cyclobenzaprine 10 mg tablet 1 tab PO TID PRN muscle spasm 02/21/22 03/16/22 melatonin 10 mg tablet 10 mg PO BEDTIME PRN Sleep 02/21/22 03/16/22 risperidone 0.5 mg tablet 1 tab PO BEDTIME 02/21/22 03/16/22 sertraline 50 mg tablet 1 tab PO BEDTIME 02/21/22 03/16/22 Previous Rx's Medication Instructions Recorded ibuprofen 600 mg tablet 600 mg PO Q8H PRN Pain, Severe 08/10/20 (Pain Scale 7-10) #30 tabs ibuprofen 600 mg tablet 600 mg PO Q6H PRN pain #20 tabs 03/16/22 Allergies Allergy/AdvReac Type Severity Reaction Status Date / Time trazodone Allergy Shortness Verified 03/16/22 11:15 of Breath Review of Systems Review of Systems: Yes Unobtainable due to mental condition PMFSH Past Medical History Source: nursing notes reviewed Medical History Back pain Biliary colic 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 Depression Diabetes High cholesterol HTN (hypertension) Hypoglycemia Substance-induced psychotic disorder with delusions Surgical History S/P cholecystectomy (02/22/22) Family History Family History Mother CAD (coronary artery disease) [place] (myocardial infarction) Diabetes Father CAD (coronary artery disease) [place] (my[place] infarction) Diabetes Testicular cancer Sister CAD (coronary artery disease) Social History Social History Household Members: Family Household Members Other:: 2 daughters and 1 son Housing: Apartment Do you presently have visiting nurse or other home services: No Alcohol intake: current Alcohol intake frequency: does not drink Patient Tobacco Use Status: Current someday Tobacco user Tobacco use type: Cigarette Cigarettes Per Day: 4 Smoked in Last 30 Days: No e-Cigarette/Vaping Use: Never Used Second Hand Smoke Exposure: No Use of substances other than those prescribed or required for medical reasons: Yes Substance Use Type: Crack/Cocaine service: No Current occupational status: unemployed Sexual orientation: Straight/Heterosexual Physical Exam Vital Signs: Vital Signs: Last Vital Signs Pulse 107 H 04/11/22 05:42 Resp 20 04/11/22 05:42 BP 141/105 H 04/11/22 05:42 Pulse Ox 99 04/11/22 05:42 O2 Del Method 04/11/22 05:42 BMI result Body Mass Index 26.6 VITAL SIGNS: Reviewed. GENERAL: Well developed, well nourished, in no acute distress. HEAD: Normocephalic/atraumatic EYES: PERRLA, EOMI OROPHARYNX: no oral lesions noted, posterior pharynx clear LUNGS: Normal breath sounds. No adventitious sounds or accessory muscle use. SpO2<99> CARDIOVASCULAR: Regular rate and rhythm without noted murmurs ABDOMEN: Soft, non-tender, non-distended with bowel sounds. MUSCULOSKELETAL: No tenderness, deformities, or effusions noted on gross inspection. EXTREMITIES: No cyanosis, clubbing or edema. SKIN: Inspection of the skin reveals no rashes NEUROLOGIC: Alert and oriented x 4. Strength and sensation to light touch were grossly intact x 4, cranial nerves 2-12 are grossly intact PSYCH: Pressured speech, acute psychosis Medical Decision Making Medical Decision Making MDM Narrative: 51-year-old male who presents via EMS with what appears to be another cocaine induced acute psychosis, on review of patient's previous records this is occurred previously as well. Will obtain lab work to include toxicology and will provide patient with 1 mg p.o. Ativan to assist in calming him. He has made no threatening or aggressive moves at this time. Will also place consult for care team. Signed out to Dr Joyce Differential Diagnosis Please see the discussion above Lab Data Labs: Lab Results 04/11/22 Range/Units 06:01 Urine Color Dark Yellow Urine Appearance Cloudy Urine pH 5.5 (5.0-9.0) Ur Specific [place] >= 1.030 H (1.005-1.025) Urine Protein 100 (2+) H (Neg-Trace) mg/dL Urine Glucose (UA) Negative (Negative) mg/dL Urine Ketones 80 (Negative) mg/dL Urine Blood Negative (Negative) Urine Nitrite Negative (Negative) Ur Leukocyte Esterase Negative (Negative) Discharge Plan Discharge Clinical Impression: Acute psychosis, Cocaine abuse Patient Disposition: Still a Patient Prescriptions: No Action albuterol sulfate 90 mcg/actuation HFA aerosol inhaler 2 puff inhalation Q4-6H PRN (Reason: wheezing) ibuprofen 600 mg Tablet 600 mg PO Q8H PRN (Reason: Pain, Severe (Pain Scale 7-10)) Qty: 30 0RF famotidine 40 mg tablet 1 tab PO BID PRN (Reason: heartburn) clonazepam 1 mg tablet 1 tab PO BEDTIME PRN (Reason: insomnia) risperidone 2 mg tablet 1 tab PO BEDTIME atorvastatin 40 mg tablet 1 tab PO DAILY allopurinol 100 mg tablet 1 tab PO DAILY PRN (Reason: gout attack) diltiazem HCl [Tiadylt ER] 120 mg capsule,extended release 24 hr 1 cap PO DAILY losartan 100 mg tablet 1 tab PO DAILY cyclobenzaprine 10 mg tablet 1 tab PO TID PRN (Reason: muscle spasm) sertraline 50 mg tablet 1 tab PO BEDTIME risperidone 0.5 mg tablet 1 tab PO BEDTIME melatonin 10 mg Tablet 10 mg PO BEDTIME PRN (Reason: Sleep) ibuprofen 600 mg tablet 600 mg PO Q6H PRN (Reason: pain) Qty: 20 0RF Interventions: [place]-Suicide Risk Severity Scale Last Done: 04/11/22 05:48
[2022-04-11 06:20] LABS: Bacteria Urine None Seen (None Seen); Hyaline Casts Urine >20 /LPF (0-2); RBC Urine 0-2 /HPF (0-2); WBC Urine 0-5 /HPF (0-5)
[2022-04-11 06:35] LABS: Amphetamine Screen Urine Not Detected (Not Detect); Barbiturates, Urine Not Detected (Not Detect); Benzodiazepines Screen Urine Not Detected (Not Detect); Cannabinoid Screen Urine Not Detected (Not Detect); Cocaine Screen Urine POSITIVE (Not Detect); Fentanyl, urine Not Detected (Not Detect); Opiate Screen Urine Not Detected (Not Detect); Phencyclidine Screen Urine Not Detected (Not Detect)
[2022-04-11 06:43] LABS: MANUAL DIFF FLAG NO
[2022-04-11] MEDS: LORazepam 1 MG TABLET PO (06:48)
[2022-04-11 06:55] LABS: Basophils Absolute Auto 0.1 X10*3/uL (0.0-0.2); Basophils Percent Auto 0.4 % (0-2); Eosinophils Absolute Auto 0.1 X10*3/uL (0.0-0.4); Eosinophils Percent Auto 0.3 % (0-4); Hematocrit 45.2 % (42.0-52.0); Hemoglobin 14.7 g/dl (14.0-18.0); Imm Gran Abs Auto 0.06 X10*3/uL (0.00-0.03); Imm Gran Pct Auto 0.4 % (0.0-0.4); Lymphocytes Absolute Auto 3.3 X10*3/uL (1.2-4.9); Lymphocytes Percent Auto 21.3 % (20-40); Mean Corpuscular HGB Conc 32.5 g/dl (31.0-36.0); Mean Corpuscular Hemoglobin 26.7 pg (27.0-33.0); Mean Platelet Volume 9.6 fL (9.4-12.4); Monocytes Percent Auto 6.7 % (2-11); Neutrophils Absolute Auto 10.9 x10*3/uL (2.0-8.3); Neutrophils Percent Auto 70.9 % (45-73); Platelet Count 333 X10*3/uL (160-400); Red Blood Count 5.51 X10*6/uL (4.60-5.80); Red Cell Distribution Width 14.4 % (11.0-16.0); White Blood Count 15.4 X10*3/uL (4.8-10.8)
[2022-04-11 07:06] LABS: Ethanol < 10 mg/dL
[2022-04-11 07:07] LABS: Acetaminophen LAB < 17 mcg/mL (<30); Alanine Aminotransferase 18 U/L (0-40); Alkaline Phosphatase 67 U/L (39-117); Aspartate Amino Transferase 37 U/L (5-37); Blood Urea Nitrogen 32 mg/dL (9-16); Calcium 9.6 mg/dL (8.4-10.2); Creatinine Clr Calc Pharmacy 45.9; Estimated Glomerular Filt Rate 38; Glucose Random 103 mg/dL (60-115); Salicylate < 5.0 mg/dL (15-30); Total Protein 7.8 g/dL (6.5-8.0)
--- NOTE | 2022-04-11 07:16 | ECG_ITS ---
Test Reason : coaine abuse Blood Pressure : / mmHG Vent. Rate : 098 BPM Atrial Rate : 098 BPM P-R Int : 130 ms QRS Dur : 142 ms QT Int : 442 ms P-R-T Axes : 053 027 001 degrees QTc Int : 565 ms Normal sinus rhythm Right bundle branch block T wave abnormality, consider inferior ischemia Abnormal ECG When compared with ECG of 21-FEB-2022 15:42, QT has lengthened Referred By: Odette Joyce Electronically Signed By:ANGELA BRANDON
[2022-04-11 07:22] LABS: Anion Gap 22 (12-20); Carbon Dioxide 21 mmol/L (22-29); Chloride 101 mmol/L (96-108); Potassium 3.7 mmol/L (3.3-5.1); Sodium 140 mmol/L (135-145)
[2022-04-11] MEDS: LORazepam 2 MG/ML VIAL 1 MG IVPUSH (07:32)
[2022-04-11] MEDS: 0.9 % Sodium Chloride 1,000 ML 999 ML IV ×2 (07:32→09:11)
--- NOTE | 2022-04-11 08:54 | PHA.MEDREC ---
Pharmacy Consult ? Medication Reconciliation Pharmacy has completed the medication reconciliation. I went down with automotive parts interpreter but patient was unarousable, patient kept falling asleep. Went with pharmacy claims
[2022-04-11 09:12] VITALS: PULSE 88; RESP 15; O2SAT 93
[2022-04-11 10:58] VITALS: BP 132/92; PULSE 94; RESP 22; TEMP 36.7; O2SAT 100
--- NOTE | 2022-04-11 11:04 | PC.NURSE ---
daughter at bedside, skin wpd, sleeping and easily woken, pt states he uses cocaine approx 1 x a week, states that people have been stealing his memory, pt and family aware of pending care team assessment, denies si/hi, speech clear, labs re drawn and ns 2 l bolus infused
[2022-04-11 11:26] LABS: Blood Urea Nitrogen 29 mg/dL (9-16); Creatinine Clr Calc Pharmacy 57.6; Estimated Glomerular Filt Rate 49; Glucose Random 91 mg/dL (60-115)
[2022-04-11 11:41] LABS: Anion Gap 14 (12-20); Calcium 8.8 mg/dL (8.4-10.2); Carbon Dioxide 25 mmol/L (22-29); Chloride 105 mmol/L (96-108); Potassium 3.5 mmol/L (3.3-5.1); Sodium 140 mmol/L (135-145)
[2022-04-11] MEDS: 0.9 % Sodium Chloride 1,000 ML 250 ML IVCONT (11:44)
--- NOTE | 2022-04-11 14:23 | PC.NURSE ---
Per Care Team patient has been seen by N and will be an inpatient bed search. Daughter in at bedside and updated on plan of care at this time.
--- NOTE | 2022-04-11 14:49 | MHC.CARE ---
Clarification: CARE Team evaluation pending, no disposition determined.
[2022-04-11 19:42] VITALS: BP 111/64; PULSE 104; RESP 18; TEMP 36.8; O2SAT 97
[2022-04-11 20:20] LABS: COVID-19 Test Negative (Negative); IDNOW Serial# 16C4AD1C
--- NOTE | 2022-04-11 20:28 | MHC.RECOVSUP ---
? Reason for consult:ETOH/IVÁN o? Current location:ED17? o? Identified substance use concern:? -? Seeking ATS (detox) -? Support ? Intervention: o? ATS bed search started/completed/in process o? Community resources provided o? Harm reduction discussion ? Plan: o? Bed search in progress to o? Follow up tomorrow? ? Additional information:RC met with pt, discussed treatmeant options, pt asked to go to detox, RC spoke with central intake at [facility] and submitted a referral. Jesica is going to call the Care team after they review his referral.
--- NOTE | 2022-04-11 20:47 | PC.NURSE ---
Pt's NS infusion completed after 4 hours (250 mL/hour) per provider order.
--- NOTE | 2022-04-11 22:55 | MHC.CARE ---
Pt cleared by the CARE Team, pt is a an detox bedsearch at this time.
[2022-04-12 02:17] VITALS: BP 94/60; PULSE 77; RESP 19; O2SAT 96
[2022-04-12 02:23] LABS: Glucose, Whole Blood 105 mg/dL (60-115)
[2022-04-12] MEDS: Ibuprofen 600 MG TABLET PO ×2 (04:31→11:27)
--- NOTE | 2022-04-12 05:04 | PC.NURSE ---
pt medicated for Headache and personal belonging taken by Celestine from security and placed in the pod. Pt is resting at this time. Will continue to monitor.
[2022-04-12 05:13] VITALS: BP 115/82; PULSE 81; RESP 18; O2SAT 97
[2022-04-12 06:59] VITALS: BP 116/77; PULSE 66; RESP 20; O2SAT 94
--- NOTE | 2022-04-12 07:24 | PC.NURSE ---
Pt asleep, respirations even and unlabored. Call lobato within reach
--- NOTE | 2022-04-12 09:17 | MHC.RECOVRN ---
Spoke with Codi Marte at [facility] as well as Jazzy Ybarra, pts referral had not been sent, however, intake was aware of pt. CRC has bed availability, referral has been sent to [facility]. Awaiting review.
[2022-04-12 10:50] VITALS: BP 122/76; PULSE 62; RESP 16; O2SAT 100
[2022-04-12] MEDS: Losartan Potassium 50 MG TABLET 100 MG PO (11:24)
--- NOTE | 2022-04-12 11:24 | MHC.RECOVRN ---
Yoly RN, from [facility] requested information regarding patient's medications. Spoke with pt, pt reports medications were finished and does not have refills. Pt reports last took medications approx 1 week ago. CARE Team believes psychiatry can meet with pt to restart medications. Awaiting information.
[2022-04-12] MEDS: Atorvastatin Calcium 40 MG TABLET PO (11:25)
[2022-04-12] MEDS: dilTIAZem HCL CD 120 MG CAP.ER.DEG PO (11:25)
--- NOTE | 2022-04-12 11:30 | PC.NURSE ---
pt sleepy, CIWA = 0, medicated per provider order, pt reporting generalized body pain, medicated with PRN motrin. pt pending detox placement.
[2022-04-12 12:55] VITALS: BP 131/93; PULSE 90; RESP 18; O2SAT 99
--- NOTE | 2022-04-12 12:58 | MHC.RECOVRN ---
Pt completing phone intake with Jesica. Medications being sent to [facility] in [place] by Leslie Kumar NP.
[2022-04-12 14:17] LABS: Anion Gap 11 (12-20); Blood Urea Nitrogen 19 mg/dL (9-16); Calcium 8.9 mg/dL (8.4-10.2); Carbon Dioxide 27 mmol/L (22-29); Chloride 105 mmol/L (96-108); Creatinine Clr Calc Pharmacy 81.5; Estimated Glomerular Filt Rate > 60; Glucose Random 119 mg/dL (60-115); Potassium 4.3 mmol/L (3.3-5.1); Sodium 139 mmol/L (135-145)
== END 2022-04-12 15:31 | disposition home or self-care (01) ==
PROVIDERS: Student in an Organized Health Care Education/Training Program; Emergency Provider Emergency Medicine
DX: F23 Brief psychotic disorder (principal); F14.10 Cocaine abuse, uncomplicated; F10.10 Alcohol abuse, uncomplicated; F17.210 Nicotine dependence, cigarettes, uncomplicated; Y90.9 Presence of alcohol in blood, level not specified; Z20.822 Contact with and (suspected) exposure to COVID-19; Z20.828 Contact with and (suspected) exposure to other viral communicable diseases; Z79.899 Other long term (current) drug therapy; Z71.6 Tobacco abuse counseling; Z71.41 Alcohol abuse counseling and surveillance of alcoholic
CPT/HCPCS: 36415; 80048; 80053; 80143; 80179; 80307; 81001; 82077; 82947; 85025; 87635; 93005; 96361; 96374; 99285; J2060; S9485

== ENCOUNTER 2024-11-09 02:12 | Emergency (ER) | payer MEDICAID, SELFPAY ==
--- NOTE | 2024-11-09 02:52 | PC.NURSE ---
[facility] contacted. . potential for tissue donation, will be calling back. ME will be contacted by Dr Vasquez.
[2024-11-09 02:55] VITALS: BMI 38.1
--- NOTE | 2024-11-09 03:36 | PC.NURSE ---
room service attendant contacted [facility] to request an attempt to be made at outreaching the patient's listed next of kin as MD Vasquez was unsuccessful at reaching them via phone with the numbers listed in the chart.
--- NOTE | 2024-11-09 04:01 | PC.NURSE ---
ME accepted patient case # [id number]. still waiting to hear back from NEKYLER
--- NOTE | 2024-11-09 04:20 | ED.CPR ---
HPI - CPR General Chief Complaint: Cardiac Arrest/CPR Stated Complaint: Cardiac Arrest , OD , Time Seen by Provider: 11/09/24 02:47 Source: EMS Mode of arrival: EMS Limitations: other History of Present Illness ED Provider: Dr. Brittnee Vasquez HPI narrative: Patient comes to the emergency room via ambulance. Patient is in cardiac arrest. According to EMS, patient was seen by bystanders collapsing on the floor. Initially, bystanders reported a possible overdose? He was [place] [address] at the [facility] area. When he called labs, bystanders called 911. PD arrived at scene at 01:46 and started CPR. Within 10 minutes, EM arrived and they took over patient's care. According to EMS, they report that patient had 2 episodes of V fib, 2 shocks were administered. No amiodarone was given, within a few sec patient went back to asystole. Patient arrived to the emergency room at 213 a.m.. First pulse check was asystole, compressions were continued by Isrrael device. According to PD, patient was seen on security cameras, walking normal, health his chest and collapsed. Related Data Home Medications ?Medication ?Instructions ?Recorded ?Confirmed albuterol sulfate 90 mcg/actuation 2 puff inhalation Q4-6H PRN 08/03/20 04/11/22 aerosol inhaler wheezing atorvastatin 40 mg tablet 1 tab PO DAILY 09/06/21 04/11/22 clonazepam 1 mg tablet 1 tab PO BEDTIME PRN insomnia 09/06/21 04/11/22 diltiazem HCl 120 mg capsule,24 1 cap PO DAILY 09/06/21 04/11/22 hr,extended release (Tiadylt ER) losartan 100 mg tablet 1 tab PO DAILY 09/06/21 04/11/22 risperidone 2 mg tablet 1 tab PO BEDTIME 09/06/21 04/11/22 cyclobenzaprine 10 mg tablet 1 tab PO TID PRN muscle spasm 02/21/22 04/11/22 risperidone 0.5 mg tablet 1 tab PO BEDTIME 02/21/22 04/11/22 sertraline 50 mg tablet 1 tab PO BEDTIME 02/21/22 04/11/22 Previous Rx's ?Medication ?Instructions ?Recorded ibuprofen 600 mg tablet 600 mg PO Q6H PRN pain #20 tabs 03/16/22 risperidone 2 mg tablet 2 mg PO BEDTIME #30 tabs 04/12/22 sertraline 50 mg tablet 50 mg PO DAILY #30 tabs 04/12/22 Allergies Allergy/AdvReac Type Severity Reaction Status Date / Time trazodone Allergy Shortness Verified 11/09/24 03:01 of Breath Review of Systems Review of Systems: Yes Other [facility] Past Medical History Medical History Biliary colic 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 Hypoglycemia Back pain Depression High cholesterol HTN (hypertension) Diabetes Surgical History S/P cholecystectomy (02/22/22) Family History Family History Mother CAD (coronary artery disease) [place] (myocardial infarction) Diabetes Father CAD (coronary artery disease) [place] (myocardial infarction) Diabetes Testicular cancer Sister CAD (coronary artery disease) Social History Social History Household Members: Family Household Members Other:: 2 daughters and 1 son Housing: Apartment Do you presently have visiting nurse or other home services: No Alcohol intake: current Alcohol intake frequency: does not drink Patient Tobacco Use Status: Current someday Tobacco user Tobacco use type: Cigarette Cigarettes Per Day: 4 e-Cigarette/Vaping Use: Never Used Second Hand Smoke Exposure: No Substance Use Type: Crack/Cocaine Advance Directives: No Advance Directives Information Provided: No service: No Current occupational status: unemployed Sexual orientation: Straight/Heterosexual Physical Exam Exam: Exam: Appearance: Unresponsive, CPR in progress with Isrrael, being ventilated with Ambu bag/mask Eyes: Pupils dilated, unreactive to light ENT: No obvious abnormality Neck: Normal inspection. Neck supple. No lymph nodes noted. No crepitus CVS: CPR in progress Respiratory: No spontaneous respirations Abdomen: Distended Skin: Cold and mottled. Patient has superficial abrasions to the right temporal area, left side of the nose, left elbow and right knee Extremities: No edema Neuro: Unresponsive Psych: Unresponsive Vital Signs: Vital Signs: BMI result Body Mass Index 38.1 Medical Decision Making Medical Decision Making MDM Narrative: In total, 6 epinephrine wounds were given in the emergency room, total of 9 since EMS took over the patient's care. With ultrasound, we verified that there was no cardiac activity during pulse checks, no palpable pulses Time of was called at 02:29 I discussed the case with medical administrative assistant, patient was accepted due to history of cocaine abuse. Case [id number] It is unclear what caused the patient's demise, patient does have history of cocaine abuse, possibly leading to a cardiac arrhythmia and arrest I tried calling the patient's 3 contacts in our system. No answer on any of the phones Also, we asked PD to go to patient's residence and to his significant other's residence, no response At 06:20, I tried calling all 3 contacts again, still no response Critical Care Time Critical Care Time Critical Care Time: Yes Total Critical Care Time: 35 Attestation: I have personally provided critical care time. Time includes review of lab data, radiology results, discussion with consultants, and monitoring for potential decompensation. Intervention performed as documented. Discharge Plan Discharge Clinical Impression: Cardiac arrest Patient Disposition: Interventions: Organ Donor Nursing Doc/Post Mortem care Last Done: 11/09/24 04:34 Date/Time: 11/09/24 02:29
--- NOTE | 2024-11-09 04:33 | PC.NURSE ---
provider has attempted to reach patient family with number on chart. no answers from these numbers which she called multiple times. [employer] called back and stated they had no further information or findings regarding some one to notify of patients .
--- OUTSIDE RECORDS SUMMARY | 2024-11-09 05:15 | XMS_ITS | Clinical Summary ---
Author Organization [employer] Address [address] [facility] [address] [place] [address] Care Team Providers Care Strings Teacher Name Role Phone Carlota Greco MD Primary Care Pro vider Allergies No known active allergies Medications cyclobenzaprine (Flexeril) 10 MG tabletIndication s:Muscle spasm TAKE 1 TABLET BY MOUTH 3 TIMES A DAY NEEDED FOR MUSCLE SPASM 30 tablet 1 2 Active Additional Information Patient not taking.Reported on 06/11/2024 famotidine (Pepcid) 40 MG tabletIndication s:Gastroesophage al reflux disease without esophagitis TAKE 1 TABLET BY MOUTH TWICE A DAY NEEDED FOR HEART BURN 180 tablet 1 3 Active Additional Information Patient not taking.Reported on 06/11/2024 allopurinol (Zyloprim) 100 MG tabletIndication s:Gout, unspecified cause, unspecified chronicity, unspecified site TAKE 1 TABLET BY MOUTH EVERY DAY 90 tablet 3 Active Additional Information Patient not taking.Reported on 06/11/2024 acetaminophen (Tylenol 8 Hour) 650 MG ER tablet Take 1 tablet (650 mg) by mouth every 8 (eight) hours if needed for mild pain. Do not crush, chew, or split. 30 tablet 5 Active ibuprofen 600 MG tablet Take 1 tablet (600 mg) by mouth 3 times daily. 30 tablet 5 Active Active Problems Problem Noted Date Diagnosed Date Dental abscess 06/11/2024 Biliary colic 08/17/2022 Overview (08/17/2022): [facility] Ed 01/14/22 Diagnosed with Biliary colic. Labs normal except for Glucose 148 Schizophrenia 09/08/2021 Anxiety disorder 03/11/2021 Major depressive disorder 03/11/2021 Chronic low back pain 03/04/2021 History of cocaine abuse (CMS/HCC) 03/03/2021 Overview (08/17/2022): Positive cocaine in urine [facility] ED 02/21/22 WBC elevated Dyslipidemia 11/29/2016 Essential hypertension 11/29/2016 Gout 11/29/2016 Obstructive sleep apnea syndrome 11/29/2016 Hypertriglyceridemia 11/03/2016 Erectile dysfunction 11/01/2016 Gastroesophageal reflux disease 04/24/2016 Prediabetes 04/24/2016 Social History Tobacco Use Types Packs/Day Years Used Date Smoking Tobacco: Never Passive Smoke Exposure: Never Smokeless Tobacco: Never Tobacco Cessation:Counseling Given: Not Answered Alcohol Use Standard Drinks/Week Comments Never 0 (1 standard drink = 0.6 oz pur e alcohol) Sex and Gender Information Value Date Recorded Sex Assigned at Male 12/05/2021 10:31 AM EDT Legal Sex Male 10:31 AM EDT Gender Identity Choose not to disclose 10:31 AM EDT Sexual Orientation Choose not to disclose 2021 10:31 AM EDT Last Filed Vital Signs Vital Sign Reading Time Taken Comments Blood Pressure 136/76 06/11/2024 9:00 AM EDT Pulse 68 06/11/2024 9:00 AM EDT Temperature - - Respiratory Rate - - Oxygen Saturation - - Inhaled Oxygen Concentration - - Weight 108 kg (237 lb 6.4 oz) 03/29/2020 12:02 A M EST Height 175.3 cm (5' 9 ) 03/29/2020 12:02 AM EST Body Mass Index 35.06 03/29/2020 12:02 AM EST Plan of Treatment Health Maintenance Due Date Last Done Comments CT Colonography 1969 Colonoscopy 1969 Colorectal Cancer Screening 1969 Dental Oral Exam 1969 Dental Prophylaxis 1969 Dental X-Ray: Bitewings 1969 Depression Screening 1969 FIT DNA/Cologuard 1969 FIT 1969 FOBT 1969 HIV Screening 1969 Lipid Panel 1969 SDOH Screening 1969 Sigmoidoscopy 1969 Disability Screening 1969 Alcohol/Substance Use Screening 1981 Hepatitis C Screening 07/02/1987 Hepatitis B Vaccines (1 of 3 - 19+ 3-dose series) 1988 Pneumococcal Vaccine: 50+ Years (1 of 1 - PCV) 07/02/2019 Zoster Vaccines (1 of 2) 07/02/2019 Diabetes: Hemoglobin A1C 05/01/2020 05/02/2019 COVID-19 Vaccine (1 - 2023-2 5 season) 2024 Influenza Vaccine (#1) 2024 8, 03/23/2017 Tobacco Screening 06/11/2025 06/11/2024 DTaP/Tdap/Td Vaccines (2 - T d or Tdap) 03/23/2027 03/23/2017 Dental X-Ray: Full Mouth 06/13/2027 06/11/2024 RSV Patients and Patients Aged 60 years or older (1 - 1-dose 75+ series) 2044 HIB Vaccines Aged Out No longer eligi ble based on patient's age to complete this topic HPV Vaccines Aged Out No longer eligi ble based on patient's age to complete this topic Hepatitis A Vaccines Aged Out No long er eligible based on patient's age to complete this topic IPV Vaccines Aged Out No longer eligi ble based on patient's age to complete this topic Meningococcal B Vaccine Aged Out No l onger eligible based on patient's age to complete this topic Meningococcal Vaccine Aged Out No spencer keo eligible based on patient's age to complete this topic RSV under 20 months Aged Out No longe r eligible based on patient's age to complete this topic Rotavirus Vaccines Aged Out No longer eligible based on patient's age to complete this topic Procedures Procedure Name Priority Date/Time Associated Diagnosis Comments PANORAMIC RADIOGRAPHIC IMAGE Routine 06/11/2024 9:00 AM EDT HEMOGLOBIN A1C Routine 05/02/2019 1:35 PM EDT from Last 3 Months or Most Recently Relevant to Health Maintenance Results * HEMOGLOBIN A1C (05/02/2019 1:35 PM EDT) ESTIMATED AVG GLUCOSE 114 MG/DL [facility] Comment: eAG = Estimated average glucose which is %A1C expressed as average glucose, using the formula of the [id number] Average Glucose study (ADAG), Diabetes Care, Vol.31,#8, 2007 HEMOGLOBIN A1C % (HH) 5.6 % [facility] Comment: Hemoglobin A1C Reference Range Adults: 4.8 - 6.0 % Non diabetic: < 6.0 % Goal: < 7.0 % Additional Action Suggested: > 8.0 % Note: Hemoglobin A1c results are invalid for patients with abnormal amounts of HbF. Blood transfusions may impact the HbA1c concentration in the patient sample. 05/02/2019 1:35 PM EDT us Josh Amin MD LAB BLOOD ORDERABLES Final Resul t [facility] [address] from Last 3 Months or Most Recently Relevant to Health Maintenance Insurance [facility] MEDICAID [address] [place] [id number] Care Teams Strings Teacher Relationship Specialty Start Date End Date Carlota Greco MD [address] [place] [id number] PCP - General Internal Medicine 11/14/22
--- OUTSIDE RECORDS SUMMARY | 2024-11-09 05:15 | XMS_ITS | Encounter Summary ---
Author Organization [employer] Address [address] [facility] [address] [place] [address] Care Team Providers Care Building Carpenter Helper Name Role Phone Maile Freitas Primary Care Provider Carlota Johnson MD Primary Care Pro vider Encounter Details Date Type Department Care Team (Late st Contact Info) Description 02/21/2022 Orders Only [facility] MED & PEDS [address] [place] [address] Kelsea Lisa LPN Social History Tobacco Use Types Packs/Day Years Used Date Smoking Tobacco: Never Assessed Sex and Gender Information Value Date Recorded Sex Assigned at Male 12/05/2021 10:31 AM EDT Legal Sex Male 10:31 AM EDT Gender Identity Choose not to disclose 10:31 AM EDT Sexual Orientation Choose not to disclose 2021 10:31 AM EDT documented as of this encounter Plan of Treatment Not on file documented as of this encounter Visit Diagnoses Not on filedocumented in this encounter Care Teams Building Carpenter Helper Relationship Specialty Start Date End Date Maile Freitas FNP PCP - General Family Medicine 11/26/20 11/13/22 Carlota Greco MD [address] [place] [id number] PCP - General Internal Medicine 11/14/22 documented as of this encounter
--- OUTSIDE RECORDS SUMMARY | 2024-11-09 05:15 | XMS_ITS | Encounter Summary ---
Author Organization [employer] Address [address] [place] [address] [address] [place] [address] Care Team Providers Care Malt House Operator Name Role Phone Maile Freitas Primary Care Provider Carlota Johnson MD Primary Care Pro vider Encounter Details Date Type Department Care Team (Late st Contact Info) Description 03/01/2022 Orders Only [facility] MEDICINE [address] [place] [id number] Rosy Frausto LPN Social History Tobacco Use Types Packs/Day [...] on filedocumented in this encounter Care Teams Malt House Operator Relationship Specialty Start Date End Date Maile Freitas FNP PCP - General Family Medicine 11/26/20 11/13/22 Carlota Greco MD [address] [place] [address] PCP - General Internal Medicine 11/14/22 documented as of this encounter
--- OUTSIDE RECORDS SUMMARY | 2024-11-09 05:15 | XMS_ITS | Encounter Summary ---
Author Organization [employer] Address [address] [facility] [address] [place] [address] Care Team Providers Care Sales Attendant Building Materials Name Role Phone Maile Freitas Primary Care Provider Carlota Johnson MD Primary Care Pro vider Encounter Details Date Type Department Care Team (Late st Contact Info) Description 01/23/2022 Orders Only [facility] MED & PEDS [address] [place] [address] Kelsea Lisa LPN Social History Tobacco Use [...] on filedocumented in this encounter Care Teams Sales Attendant Building Materials Relationship Specialty Start Date End Date Maile Freitas FNP PCP - General Family Medicine 11/26/20 11/13/22 Carlota Greco MD [address] [place] [id number] PCP - General Internal Medicine 11/14/22 documented as of this encounter
--- NOTE | 2024-11-09 06:08 | MHC.EDTECH ---
@[email or web address] unable to contact family via phone, and [employer]. Patient's belongings went to security with belonging list in bag. 1 patient belonging bag.
[2024-11-24 09:01] LABS: Glucose, Whole Blood 116 mg/dL (60-115)
== END 2024-11-09 06:34 | disposition expired ==
LOC: HO.ED 05:11
PROVIDERS: Emergency Provider Emergency Medicine
DX: I46.9 Cardiac arrest, cause unspecified (principal); F14.10 Cocaine abuse, uncomplicated; F17.210 Nicotine dependence, cigarettes, uncomplicated
CPT/HCPCS: 82947; 96374; 99283; 99285; J0168